=== PATIENT | male | born 1975 | race Caucasian/White ===

== ENCOUNTER 2019-08-28 05:37 | Emergency (ER) | payer MEDICAID ==
[~2019-08-28] VITALS: Ht 172.7 cm; Wt 90.9 kg
[~2019-08-28 05:37] MED LIST: METF-445 PO
[2019-08-28 06:06] LABS: GLUCOSE,POINT OF CARE 233 MG/DL (70-110)
[2019-08-28 07:12] VITALS: BP 157/105
[2019-08-28] MEDS ORDERED: HYDROCHLOROTHIAZIDE 25 MG TABLET PO ONE (07:30)
== END 2019-08-28 08:14 | disposition home or self-care (01) ==
LOC: EMS 05:37
DX: S60.321A Blister (nonthermal) of right thumb, initial encounter (principal); S60.011A Contusion of right thumb without damage to nail, initial encounter; I10 Essential (primary) hypertension; E11.9 Type 2 diabetes mellitus without complications; Z98.890 Other specified postprocedural states; Z79.84 Long term (current) use of oral hypoglycemic drugs; X58.XXXA Exposure to other specified factors, initial encounter; Y93.89 Activity, other specified; Y92.89 Other specified places as the place of occurrence of the external cause; Y99.8 Other external cause status
CPT/HCPCS: 11740

== ENCOUNTER 2020-11-02 21:18 | Emergency (ER) | payer MEDICAID ==
[~2020-11-02] VITALS: Ht 182.9 cm; Wt 81.8 kg
[~2020-11-02 21:18] MED LIST changes: +BACTDSB PO; +CEPH-582 PO; +LOSA25TA21 PO
[2020-11-02 21:42] LABS: GLUCOSE,POINT OF CARE 153 MG/DL (70-110)
[2020-11-02 22:15] VITALS: BP 162/88
[2020-11-02 22:39] LABS: BASOPHILS % (AUTO) 0.6 % (0.0-2.0); EOSINOPHILS % (AUTO) 7.9 % (1.0-6.0); HEMATOCRIT 28.1 % (41-53); HEMOGLOBIN 9.7 g/dL (13.5-17.5); LYMPHOCYTES # (AUTO) 1.5 K/uL (1.0-4.8); MEAN CORPUSCULAR HEMOGLOBIN 31.4 pg (26.0-34.0); MEAN CORPUSCULAR HGB CONC 34.6 G/dL (31.0-37.0); MEAN CORPUSCULAR VOLUME 91 fL (80-100); MONOCYTES # (AUTO) 0.7 K/uL (0.1-1.0); MONOCYTES % (AUTO) 10.3 % (2.0-9.0); NEUTROPHILS # (AUTO) 3.6 K/uL (1.8-7.7); NEUTROPHILS % (AUTO) 57.2 % (40.0-70.0); PLATELET COUNT (AUTO) 170 K/uL (150-450); RED BLOOD CELL COUNT(AUTO) 3.09 MIL/uL (4.50-5.90); RED CELL DISTRIBUTION WIDTH 11.9 % (11.5-14.5)
[2020-11-02 22:47] LABS: CALCIUM, TOTAL 8.9 mg/dL (8.8-10.5); CREATININE 1.38 mg/dL (0.60-1.30); POTASSIUM 4.3 mmol/L (3.5-5.1)
[2020-11-02 22:53] LABS: ALBUMIN 2.7 g/dL (3.4-5.0); BILIRUBIN,TOTAL 0.3 mg/dL (0.1-1.0); C-REACTIVE PROTEIN QUANT 5.72 mg/dL (0.00-0.30); TOTAL PROTEIN, SERUM 7.6 g/dL (6.4-8.2)
[2020-11-02 23:54] LABS: ERYTHROCYTE SEDIMENTATION RATE 110 MM/HR (0-15)
== END 2020-11-03 01:14 | disposition home or self-care (01) ==
LOC: EMS 21:18
DX: E11.621 Type 2 diabetes mellitus with foot ulcer (principal); L97.419 Non-pressure chronic ulcer of right heel and midfoot with unspecified severity; I10 Essential (primary) hypertension; Z79.84 Long term (current) use of oral hypoglycemic drugs
CPT/HCPCS: 84145; 85651; 86140

== ENCOUNTER → 2021-03-12 | Outpatient (CLI) | payer OTHER ==
[~2021-03-12] MED LIST changes: -BACTDSB PO; -CEPH-582 PO
[2021-03-12 12:18] LABS: EOSINOPHILS % (AUTO) 2.1 % (1.0-6.0); HEMATOCRIT 34.5 % (41-53); HEMOGLOBIN 11.5 g/dL (13.5-17.5); LYMPHOCYTES # (AUTO) 1.4 K/uL (1.0-4.8); LYMPHOCYTES % (AUTO) 19.2 % (22.0-44.0); MEAN CORPUSCULAR HEMOGLOBIN 30.9 pg (26.0-34.0); MEAN CORPUSCULAR HGB CONC 33.2 G/dL (31.0-37.0); MEAN CORPUSCULAR VOLUME 93 fL (80-100); MONOCYTES # (AUTO) 0.4 K/uL (0.1-1.0); MONOCYTES % (AUTO) 5.4 % (2.0-9.0); NEUTROPHILS # (AUTO) 5.3 K/uL (1.8-7.7); NEUTROPHILS % (AUTO) 72.3 % (40.0-70.0); PLATELET COUNT (AUTO) 191 K/uL (150-450); RED BLOOD CELL COUNT(AUTO) 3.71 MIL/uL (4.50-5.90); RED CELL DISTRIBUTION WIDTH 13.1 % (11.5-14.5)
[2021-03-12 14:46] LABS: ERYTHROCYTE SEDIMENTATION RATE 68 MM/HR (0-15)
== END | disposition home or self-care (01) ==
LOC: MSR 09:18
PROVIDERS: ATTEND Podiatrist Foot & Ankle Surgery
DX: M77.31 Calcaneal spur, right foot (principal); M86.8X7 Other osteomyelitis, ankle and foot
CPT/HCPCS: 85025; 85651

== ENCOUNTER → 2021-09-18 | Outpatient (CLI) | payer OTHER ==
[~2021-09-18] MED LIST changes: +ASPI-1450 PO; +ATOR40TA28 PO; +CEFA2IV IV
[2021-09-18 12:17] LABS: BASOPHILS % (AUTO) 0.5 % (0.0-2.0); EOSINOPHILS % (AUTO) 2.1 % (1.0-6.0); HEMATOCRIT 33.5 % (41-53); HEMOGLOBIN 11.5 g/dL (13.5-17.5); LYMPHOCYTES # (AUTO) 1.3 K/uL (1.0-4.8); LYMPHOCYTES % (AUTO) 18.1 % (22.0-44.0); MEAN CORPUSCULAR HEMOGLOBIN 31.6 pg (26.0-34.0); MEAN CORPUSCULAR HGB CONC 34.5 G/dL (31.0-37.0); MEAN CORPUSCULAR VOLUME 92 fL (80-100); MONOCYTES # (AUTO) 0.5 K/uL (0.1-1.0); MONOCYTES % (AUTO) 6.1 % (2.0-9.0); NEUTROPHILS # (AUTO) 5.4 K/uL (1.8-7.7); NEUTROPHILS % (AUTO) 73.2 % (40.0-70.0); PLATELET COUNT (AUTO) 162 K/uL (150-450); RED BLOOD CELL COUNT(AUTO) 3.65 MIL/uL (4.50-5.90); RED CELL DISTRIBUTION WIDTH 12.8 % (11.5-14.5)
[2021-09-18 13:38] LABS: ERYTHROCYTE SEDIMENTATION RATE 35 MM/HR (0-15)
== END | disposition home or self-care (01) ==
LOC: MSR 11:05
PROVIDERS: ATTEND Podiatrist Foot & Ankle Surgery
DX: M86.8X0 Other osteomyelitis, multiple sites (principal); M85.9 Disorder of bone density and structure, unspecified; E11.65 Type 2 diabetes mellitus with hyperglycemia; L97.511 Non-pressure chronic ulcer of other part of right foot limited to breakdown of skin
CPT/HCPCS: 83036; 85025; 85651

== ENCOUNTER 2021-10-09 19:12 | Emergency (ER) | payer MEDICAID, OTHER ==
[~2021-10-09] VITALS: Ht 177.8 cm; Wt 86.4 kg
[2021-10-09] MEDS ORDERED: METF-444 PO (19:37)
[2021-10-09] MEDS ORDERED: LISI20TA24 PO (19:37)
[2021-10-09] MEDS ORDERED: SITA50 PO (19:37)
[2021-10-09] MEDS ORDERED: CYCLOBENZAPRINE HCL 10 MG TABLET PO ONE (20:30)
[2021-10-09] MEDS ORDERED: KETOROLAC TROMETHAMINE 60 MG/2 ML VIAL IM ONE (20:30)
[2021-10-09] MEDS ORDERED: LIDOCAINE 5% TRANSDERMAL PATCH TD ONE (20:30)
[2021-10-09 20:45] LABS: APPEARANCE,URINE CLEAR (CLEAR); BILIRUBIN,URINE PRELIM. POSITIVE (NEGATIVE); GLUCOSE, URINE (UA) NEGATIVE (NEGATIVE); KETONES,URINE 15 mg/dL (NEGATIVE); LEUKOCYTE ESTERASE ,URINE NEGATIVE (NEGATIVE); NITRATE,URINE NEGATIVE (NEGATIVE); PROTEIN,URINE SEE CONFIRM (NEGATIVE)
[2021-10-09 20:48] LABS: BACTERIA,URINE None Seen /HPF (None Seen); OCCULT BLOOD,URINE TRACE (NEGATIVE); RBC,URINE 0-2 /HPF (0-2); SULFOSALICYLIC ACID,URINE 3+ (Negative); WBC,URINE None Seen /HPF (0-5)
[2021-10-09 21:50] VITALS: BP 127/73
== END 2021-10-09 22:31 | disposition home or self-care (01) ==
LOC: EMS 19:15
DX: M54.50 Low back pain, unspecified (principal); I10 Essential (primary) hypertension; E11.9 Type 2 diabetes mellitus without complications; Z79.82 Long term (current) use of aspirin; Z79.899 Other long term (current) drug therapy
CPT/HCPCS: 81001; 96372; 99283; J1885; 81002

== ENCOUNTER 2021-10-12 06:33 | Emergency (ER) | payer MEDICAID ==
[~2021-10-12] VITALS: Ht 177.8 cm; Wt 86.4 kg
[~2021-10-12 06:33] MED LIST changes: -CEFA2IV IV; +LISI20TA24 PO; +METF-444 PO; -METF-445 PO; +SITA50 PO
[2021-10-12] MEDS ORDERED: MORPHINE SULFATE 4 MG/ML SYRINGE IVP ONE (07:00)
[2021-10-12 07:10] LABS: BASOPHILS % (AUTO) 0.2 % (0.0-2.0); HEMATOCRIT 31.6 % (41-53); HEMOGLOBIN 11.3 g/dL (13.5-17.5); LYMPHOCYTES # (AUTO) 0.6 K/uL (1.0-4.8); LYMPHOCYTES % (AUTO) 5.6 % (22.0-44.0); MEAN CORPUSCULAR HEMOGLOBIN 31.4 pg (26.0-34.0); MEAN CORPUSCULAR HGB CONC 35.7 G/dL (31.0-37.0); MEAN CORPUSCULAR VOLUME 88 fL (80-100); MONOCYTES % (AUTO) 8.6 % (2.0-9.0); NEUTROPHILS # (AUTO) 9.3 K/uL (1.8-7.7); NEUTROPHILS % (AUTO) 84.6 % (40.0-70.0); PLATELET COUNT (AUTO) 195 K/uL (150-450); RED CELL DISTRIBUTION WIDTH 12.6 % (11.5-14.5)
[2021-10-12] MEDS ORDERED: IOHEXOL 350 MG/ML 150 ML VIAL ONE (07:12)
[2021-10-12] MEDS ORDERED: SODIUM CHLORIDE 0.9% 100 ML ONE (07:13)
[2021-10-12 07:19] LABS: CALCIUM, TOTAL 9.6 mg/dL (8.8-10.5); CREATININE 1.84 mg/dL (0.60-1.30); POTASSIUM 3.7 mmol/L (3.5-5.1)
[2021-10-12 07:25] LABS: ALBUMIN 3.3 g/dL (3.4-5.0); BILIRUBIN,TOTAL 0.9 mg/dL (0.1-1.0); TOTAL PROTEIN, SERUM 8.4 g/dL (6.4-8.2)
[2021-10-12] MEDS ORDERED: SODIUM CHLORIDE 0.9% 1,000 ML IV ONE (08:00)
[2021-10-12 08:07] LABS: APPEARANCE,URINE CLEAR (CLEAR); BILIRUBIN,URINE NEGATIVE (NEGATIVE); GLUCOSE, URINE (UA) NEGATIVE (NEGATIVE); KETONES,URINE NEGATIVE (NEGATIVE); LEUKOCYTE ESTERASE ,URINE NEGATIVE (NEGATIVE); NITRATE,URINE NEGATIVE (NEGATIVE); OCCULT BLOOD,URINE SMALL (NEGATIVE); PH,URINE 5.5 (5.0-8.0); PROTEIN,URINE SEE CONFIRM (NEGATIVE)
[2021-10-12 08:18] LABS: BACTERIA,URINE None Seen /HPF (None Seen); RBC,URINE 0-2 /HPF (0-2); SULFOSALICYLIC ACID,URINE 2+ (Negative); WBC,URINE None Seen /HPF (0-5)
[2021-10-12 08:42] VITALS: BP 162/98
[2021-10-12] MEDS ORDERED: LIDOCAINE 5% TRANSDERMAL PATCH TD ONE (09:15)
[2021-10-12] MEDS ORDERED: ACETAMINOPHEN 325 MG TABLET PO ONE (09:15)
== END 2021-10-12 10:00 | disposition home or self-care (01) ==
LOC: EMS 06:35
DX: M54.50 Low back pain, unspecified (principal); E11.9 Type 2 diabetes mellitus without complications; I10 Essential (primary) hypertension; Z79.899 Other long term (current) drug therapy
CPT/HCPCS: 36415; 71260; 72128; 72131; 74177; 80053; 81001; 82550; 85025; 96361; 96374; 99285; J2270; J7050; Q9967; 72193; 74160; 81002

== ENCOUNTER 2021-11-22 13:53 | Emergency (ER) | payer MEDICAID ==
[~2021-11-22] VITALS: Ht 170.2 cm; Wt 88.0 kg
[~2021-11-22 13:53] MED LIST changes: +LOSA-370 PO; -LOSA25TA21 PO
[2021-11-22 14:32] VITALS: BP 140/88
[2021-11-22] MEDS ORDERED: ACETAMINOPHEN 500 MG TABLET PO ONE (14:45)
[2021-11-22] MEDS ORDERED: BACLOFEN 10 MG TABLET PO ONE (14:45)
[2021-11-22] MEDS ORDERED: LIDOCAINE 5% TRANSDERMAL PATCH TD ONE (14:45)
== END 2021-11-22 15:42 | disposition home or self-care (01) ==
LOC: EMS 13:53
DX: M54.6 Pain in thoracic spine (principal); E11.9 Type 2 diabetes mellitus without complications; E78.00 Pure hypercholesterolemia, unspecified; I10 Essential (primary) hypertension; Z79.82 Long term (current) use of aspirin; Z79.84 Long term (current) use of oral hypoglycemic drugs
CPT/HCPCS: 99284; Z7502; Z7610

== ENCOUNTER 2021-12-01 06:48 | Inpatient (IN) | payer MEDICAID ==
[~2021-12-01] VITALS: Ht 165.1 cm; Wt 75.5 kg
[~2021-12-01 06:48] MED LIST changes: -LOSA-370 PO; +LOSA-381 PO
[2021-12-01 07:36] LABS: BASOPHILS % (AUTO) 0.4 % (0.0-2.0); EOSINOPHILS % (AUTO) 0.2 % (1.0-6.0); HEMATOCRIT 24.1 % (41-53); HEMOGLOBIN 8.3 g/dL (13.5-17.5); LYMPHOCYTES # (AUTO) 0.6 K/uL (1.0-4.8); LYMPHOCYTES % (AUTO) 4.5 % (22.0-44.0); MEAN CORPUSCULAR HEMOGLOBIN 30.5 pg (26.0-34.0); MEAN CORPUSCULAR HGB CONC 34.4 G/dL (31.0-37.0); MEAN CORPUSCULAR VOLUME 89 fL (80-100); MONOCYTES # (AUTO) 0.8 K/uL (0.1-1.0); MONOCYTES % (AUTO) 5.8 % (2.0-9.0); NEUTROPHILS # (AUTO) 12.7 K/uL (1.8-7.7); PLATELET COUNT (AUTO) 318 K/uL (150-450); RED BLOOD CELL COUNT(AUTO) 2.72 MIL/uL (4.50-5.90); RED CELL DISTRIBUTION WIDTH 13.6 % (11.5-14.5)
[2021-12-01 07:41] LABS: NEUTROPHILS % (AUTO) 89.1 % (40.0-70.0)
[2021-12-01 07:53] LABS: CALCIUM, TOTAL 9.1 mg/dL (8.8-10.5); CREATININE 1.42 mg/dL (0.60-1.30); POTASSIUM 4.6 mmol/L (3.5-5.1)
[2021-12-01 08:02] LABS: ALBUMIN 2.1 g/dL (3.4-5.0); BILIRUBIN,TOTAL 0.7 mg/dL (0.1-1.0); TOTAL PROTEIN, SERUM 7.4 g/dL (6.4-8.2); URIC ACID 6.5 mg/dL (2.6-7.2)
[2021-12-01 08:18] LABS: C-REACTIVE PROTEIN QUANT 20.48 mg/dL (0.00-0.30)
[2021-12-01 08:52] LABS: ERYTHROCYTE SEDIMENTATION RATE 150 MM/HR (0-15)
[2021-12-01] MEDS ORDERED: VANCOMYCIN HCL 1 GM/D5% WATER 200 ML IV ONE (12:00)
[2021-12-01 14:28] LABS: COVID AG,FIA SOURCE NASOPHARYNGEAL
[2021-12-01] MEDS ORDERED: ONDANSETRON HCL 4 MG/2 ML VIAL IVP PRN (14:45)
[2021-12-01] MEDS ORDERED: DEXTROSE 50%-WATER 25 GM/50 ML SYRINGE IVP PRN (14:45)
[2021-12-01] MEDS ORDERED: SODIUM CHLORIDE 0.9% 1,000 ML IV ONE (14:45)
[2021-12-01] MEDS ORDERED: ZOLPIDEM TARTRATE 5 MG TABLET PO PRN (14:45)
[2021-12-01] MEDS: LOSARTAN POTASSIUM 25 MG TABLET PO SCH (14:56)
[2021-12-01] MEDS: OxyCODONE HCL/ACETAMINOPHEN 5-325 MG TABLET PO PRN (16:21)
[2021-12-01] MEDS: INSULIN LISPRO 100 UNITS/ML SQ PRN ×2 (18:05→21:08)
[2021-12-01 18:36] VITALS: BP 140/94
[2021-12-01 19:56] LABS: GLUCOMETER DEV NAME(LOC) 6N.2; GLUCOSE,POINT OF CARE 154 MG/DL (70-110)
[2021-12-01 20:04] VITALS: BP 142/96
[2021-12-01] MEDS: DOCUSATE SODIUM 100 MG CAPSULE PO SCH (20:50)
[2021-12-01] MEDS: ACETAMINOPHEN 325 MG TABLET PO PRN (21:17)
[2021-12-01] MEDS: VANCOMYCIN HCL 1 GM/D5% WATER 200 ML IV SCH (21:53)
[2021-12-01] MEDS ORDERED: INFLUENZA VIRUS VACCINE QVS 2021-22 (6MO+)/PF 60 MCG/0.5 ML SYRINGE IM. ONE (23:45)
[2021-12-02 03:30] VITALS: BP 116/74
[2021-12-02 05:12] LABS: GLUCOMETER DEV NAME(LOC) 6N.2; GLUCOSE,POINT OF CARE 185 MG/DL (70-110)
[2021-12-02] MEDS: INSULIN LISPRO 100 UNITS/ML SQ PRN ×3 (05:53→20:20)
[2021-12-02 06:07] LABS: GLUCOMETER DEV NAME(LOC) 6N.2; GLUCOSE,POINT OF CARE 200 MG/DL (70-110)
[2021-12-02 06:31] LABS: BASOPHILS % (AUTO) 0.4 % (0.0-2.0); EOSINOPHILS % (AUTO) 1.2 % (1.0-6.0); HEMATOCRIT 26.7 % (41-53); HEMOGLOBIN 9.1 g/dL (13.5-17.5); LYMPHOCYTES # (AUTO) 1.1 K/uL (1.0-4.8); LYMPHOCYTES % (AUTO) 10.6 % (22.0-44.0); MEAN CORPUSCULAR HEMOGLOBIN 29.9 pg (26.0-34.0); MEAN CORPUSCULAR HGB CONC 33.9 G/dL (31.0-37.0); MEAN CORPUSCULAR VOLUME 88 fL (80-100); MONOCYTES # (AUTO) 0.6 K/uL (0.1-1.0); MONOCYTES % (AUTO) 5.9 % (2.0-9.0); NEUTROPHILS # (AUTO) 8.3 K/uL (1.8-7.7); NEUTROPHILS % (AUTO) 81.9 % (40.0-70.0); PLATELET COUNT (AUTO) 318 K/uL (150-450); RED BLOOD CELL COUNT(AUTO) 3.03 MIL/uL (4.50-5.90); RED CELL DISTRIBUTION WIDTH 13.8 % (11.5-14.5)
[2021-12-02 06:42] LABS: ANION GAP 9 mmol/L (8-16); CALCIUM, TOTAL 9.2 mg/dL (8.8-10.5); CARBON DIOXIDE 27 mmol/L (22-29); CHLORIDE 99 mmol/L (98-107); CREATININE 1.05 mg/dL (0.60-1.30); GLOMERULAR FILTR. RATE CALC > 60 mL/min (>60); GLUCOSE,RANDOM 202 mg/dL (70-110); POTASSIUM 4.6 mmol/L (3.5-5.1); SODIUM SERUM 135 mmol/L (136-145); UREA NITROGEN, BLOOD 32 mg/dL (7-18)
[2021-12-02 08:03] VITALS: BP 138/90
[2021-12-02] MEDS: OxyCODONE HCL/ACETAMINOPHEN 5-325 MG TABLET PO PRN ×3 (08:54→19:52)
[2021-12-02] MEDS: VANCOMYCIN HCL 1 GM/D5% WATER 200 ML IV SCH ×2 (10:14→19:53)
[2021-12-02] MEDS: DOCUSATE SODIUM 100 MG CAPSULE PO SCH ×2 (10:14→19:52)
[2021-12-02] MEDS: LOSARTAN POTASSIUM 25 MG TABLET PO SCH (10:15)
[2021-12-02] MEDS: FAMOTIDINE 20 MG TABLET PO SCH (10:15)
[2021-12-02 12:44] VITALS: BP 176/81
[2021-12-02 13:55] VITALS: BP 143/89
[2021-12-02 15:51] VITALS: BP 156/87
[2021-12-02 19:51] LABS: GLUCOMETER DEV NAME(LOC) 6N.2; GLUCOSE,POINT OF CARE 151 MG/DL (70-110)
[2021-12-02 19:51] LABS: GLUCOMETER DEV NAME(LOC) 6N.2; GLUCOSE,POINT OF CARE 166 MG/DL (70-110)
[2021-12-02 20:32] VITALS: BP 113/75
[2021-12-03 04:47] VITALS: BP 138/88
[2021-12-03] MEDS: OxyCODONE HCL/ACETAMINOPHEN 5-325 MG TABLET PO PRN ×3 (06:29→21:57)
[2021-12-03] MEDS: INSULIN LISPRO 100 UNITS/ML SQ PRN ×4 (06:32→21:58)
[2021-12-03] MEDS ORDERED: BUPIVACAINE 0.25%/EPI 1:200,000/PF 10 ML VIAL ONE ×2 (06:42→06:43)
[2021-12-03] MEDS ORDERED: BUPIVACAINE HCL/PF 0.25% 30 ML VIAL ONE (06:43)
[2021-12-03] MEDS ORDERED: LIDOCAINE/PF 1% 30 ML VIAL ONE (07:25)
[2021-12-03] MEDS ORDERED: VANCOMYCIN HCL 1 GM/VIAL ONE (07:32)
[2021-12-03] MEDS ORDERED: SODIUM CHLORIDE 0.9% 250 ML IV ONE (07:33)
[2021-12-03] MEDS ORDERED: SUGAMMADEX SODIUM 200 MG/2 ML VIAL IVP ONE (07:42)
[2021-12-03] MEDS: OXYGEN THERAPY IH SCH ×2 (08:00→20:00)
[2021-12-03] MEDS ORDERED: MEPERIDINE-PF 25 MG/ML VIAL IVP PRN (08:00)
[2021-12-03] MEDS ORDERED: FentaNYL CITRATE PF 100 MCG/2 ML VIAL IVP PRN (08:00)
[2021-12-03] MEDS ORDERED: HYDROmorphone 2 MG/ML VIAL IVP PRN (08:00)
[2021-12-03 08:06] LABS: GLUCOMETER DEV NAME(LOC) 6N.2; GLUCOSE,POINT OF CARE 181 MG/DL (70-110)
[2021-12-03 08:06] LABS: GLUCOMETER DEV NAME(LOC) 6N.2; GLUCOSE,POINT OF CARE 173 MG/DL (70-110)
[2021-12-03 09:05] VITALS: BP 149/91
[2021-12-03] MEDS: DOCUSATE SODIUM 100 MG CAPSULE PO SCH ×2 (09:16→21:56)
[2021-12-03] MEDS: LOSARTAN POTASSIUM 25 MG TABLET PO SCH (09:16)
[2021-12-03] MEDS: FAMOTIDINE 20 MG TABLET PO SCH (09:16)
[2021-12-03] MEDS: VANCOMYCIN HCL 1 GM/D5% WATER 200 ML IV SCH ×2 (09:50→21:56)
[2021-12-03 10:07] LABS: ANION GAP 5 mmol/L (8-16); CALCIUM, TOTAL 9.1 mg/dL (8.8-10.5); CARBON DIOXIDE 28 mmol/L (22-29); CHLORIDE 101 mmol/L (98-107); CREATININE 1.07 mg/dL (0.60-1.30); GLOMERULAR FILTR. RATE CALC > 60 mL/min (>60); GLUCOSE,RANDOM 187 mg/dL (70-110); POTASSIUM 5.1 mmol/L (3.5-5.1); SODIUM SERUM 134 mmol/L (136-145); UREA NITROGEN, BLOOD 23 mg/dL (7-18); VANCOMYCIN,RANDOM 29.5 mcg/mL (25.0-50.0)
[2021-12-03 12:21] LABS: GLUCOMETER DEV NAME(LOC) 6N.1; GLUCOSE,POINT OF CARE 229 MG/DL (70-110)
[2021-12-03 15:36] VITALS: BP 118/74
[2021-12-03 19:26] VITALS: BP 118/65
[2021-12-03 20:36] LABS: GLUCOMETER DEV NAME(LOC) 6N.1; GLUCOSE,POINT OF CARE 202 MG/DL (70-110)
[2021-12-03 23:47] LABS: GLUCOMETER DEV NAME(LOC) 6N.1; GLUCOSE,POINT OF CARE 175 MG/DL (70-110)
[2021-12-04 03:47] VITALS: BP 154/96
[2021-12-04] MEDS ORDERED: MIDAZOLAM HCL 2 MG/2 ML VIAL IVP ONE (06:38)
[2021-12-04] MEDS ORDERED: DEXAMETHASONE SOD PHOS 4 MG/ML VIAL IVP ONE (06:38)
[2021-12-04] MEDS ORDERED: LIDOCAINE/PF 2% 5 ML VIAL IM ONE (06:38)
[2021-12-04] MEDS ORDERED: ONDANSETRON HCL 4 MG/2 ML VIAL IVP ONE (06:38)
[2021-12-04] MEDS ORDERED: ROCURONIUM BROMIDE 10 MG/ML 5 ML VIAL IVP ONE (06:38)
[2021-12-04] MEDS ORDERED: FentaNYL CITRATE PF 100 MCG/2 ML VIAL IVP ONE (06:38)
[2021-12-04] MEDS ORDERED: PROPOFOL 1% 20 ML VIAL IVP ONE (06:38)
[2021-12-04] MEDS: INSULIN LISPRO 100 UNITS/ML SQ PRN ×4 (06:54→20:49)
[2021-12-04 07:13] LABS: ANION GAP 5 mmol/L (8-16); CARBON DIOXIDE 29 mmol/L (22-29); CHLORIDE 101 mmol/L (98-107); CREATININE 1.05 mg/dL (0.60-1.30); GLOMERULAR FILTR. RATE CALC > 60 mL/min (>60); GLUCOSE,RANDOM 178 mg/dL (70-110); POTASSIUM 4.5 mmol/L (3.5-5.1); SODIUM SERUM 135 mmol/L (136-145); UREA NITROGEN, BLOOD 25 mg/dL (7-18)
[2021-12-04 07:31] LABS: GLUCOMETER DEV NAME(LOC) 6N.2; GLUCOSE,POINT OF CARE 163 MG/DL (70-110)
[2021-12-04] MEDS: OXYGEN THERAPY IH SCH ×2 (08:00→20:00)
[2021-12-04 08:20] VITALS: BP 118/76
[2021-12-04 08:29] VITALS: BP 133/91
[2021-12-04] MEDS: DOCUSATE SODIUM 100 MG CAPSULE PO SCH ×2 (09:45→20:46)
[2021-12-04] MEDS: FAMOTIDINE 20 MG TABLET PO SCH (09:46)
[2021-12-04] MEDS: LOSARTAN POTASSIUM 25 MG TABLET PO SCH (10:09)
[2021-12-04] MEDS: VANCOMYCIN HCL 1 GM/D5% WATER 200 ML IV SCH ×2 (12:23→20:46)
[2021-12-04 13:36] LABS: GLUCOMETER DEV NAME(LOC) 6N.2; GLUCOSE,POINT OF CARE 164 MG/DL (70-110)
[2021-12-04] MEDS: OxyCODONE HCL/ACETAMINOPHEN 5-325 MG TABLET PO PRN ×2 (14:00→20:46)
[2021-12-04 15:51] VITALS: BP 112/74
[2021-12-04 19:41] LABS: GLUCOMETER DEV NAME(LOC) 6N.2; GLUCOSE,POINT OF CARE 214 MG/DL (70-110)
[2021-12-04 19:55] VITALS: BP 136/82
[2021-12-04 20:46] LABS: GLUCOMETER DEV NAME(LOC) 6N.1; GLUCOSE,POINT OF CARE 203 MG/DL (70-110)
[2021-12-05] MEDS: OxyCODONE HCL/ACETAMINOPHEN 5-325 MG TABLET PO PRN ×3 (02:24→20:32)
[2021-12-05 04:40] VITALS: BP 155/97
[2021-12-05] MEDS: INSULIN LISPRO 100 UNITS/ML SQ PRN ×2 (05:46→20:43)
[2021-12-05 06:06] LABS: GLUCOMETER DEV NAME(LOC) 6N.2; GLUCOSE,POINT OF CARE 158 MG/DL (70-110)
[2021-12-05 07:02] LABS: ANION GAP 1 mmol/L (8-16); CARBON DIOXIDE 30 mmol/L (22-29); CHLORIDE 101 mmol/L (98-107); CREATININE 0.88 mg/dL (0.60-1.30); GLOMERULAR FILTR. RATE CALC > 60 mL/min (>60); GLUCOSE,RANDOM 172 mg/dL (70-110); POTASSIUM 4.6 mmol/L (3.5-5.1); SODIUM SERUM 132 mmol/L (136-145); UREA NITROGEN, BLOOD 24 mg/dL (7-18)
[2021-12-05] MEDS: OXYGEN THERAPY IH SCH ×2 (08:00→20:00)
[2021-12-05 08:51] VITALS: BP 136/84
[2021-12-05] MEDS: VANCOMYCIN HCL 1 GM/D5% WATER 200 ML IV SCH ×2 (10:15→20:33)
[2021-12-05] MEDS: FAMOTIDINE 20 MG TABLET PO SCH (10:55)
[2021-12-05] MEDS: DOCUSATE SODIUM 100 MG CAPSULE PO SCH ×2 (10:55→20:32)
[2021-12-05] MEDS: LOSARTAN POTASSIUM 25 MG TABLET PO SCH (11:07)
[2021-12-05 12:46] VITALS: BP 155/95
[2021-12-05 17:07] VITALS: BP 140/62
[2021-12-05 19:46] LABS: GLUCOMETER DEV NAME(LOC) 6N.1; GLUCOSE,POINT OF CARE 119 MG/DL (70-110)
[2021-12-05 19:49] VITALS: BP 128/86
[2021-12-06] MEDS: OxyCODONE HCL/ACETAMINOPHEN 5-325 MG TABLET PO PRN ×3 (03:13→19:39)
[2021-12-06 04:34] VITALS: BP 150/86
[2021-12-06] MEDS: INSULIN LISPRO 100 UNITS/ML SQ PRN (05:50)
[2021-12-06 06:56] LABS: GLUCOMETER DEV NAME(LOC) 6N.2; GLUCOSE,POINT OF CARE 169 MG/DL (70-110)
[2021-12-06 06:56] LABS: GLUCOMETER DEV NAME(LOC) 6N.1; GLUCOSE,POINT OF CARE 179 MG/DL (70-110)
[2021-12-06 07:05] LABS: ANION GAP 4 mmol/L (8-16); CALCIUM, TOTAL 9.2 mg/dL (8.8-10.5); CARBON DIOXIDE 30 mmol/L (22-29); CHLORIDE 99 mmol/L (98-107); CREATININE 0.91 mg/dL (0.60-1.30); GLOMERULAR FILTR. RATE CALC > 60 mL/min (>60); GLUCOSE,RANDOM 172 mg/dL (70-110); POTASSIUM 4.5 mmol/L (3.5-5.1); SODIUM SERUM 133 mmol/L (136-145); UREA NITROGEN, BLOOD 22 mg/dL (7-18)
[2021-12-06 07:42] VITALS: BP 148/84
[2021-12-06] MEDS: OXYGEN THERAPY IH SCH ×2 (08:00→20:00)
[2021-12-06] MEDS: VANCOMYCIN HCL 1 GM/D5% WATER 200 ML IV SCH (09:29)
[2021-12-06] MEDS: LOSARTAN POTASSIUM 25 MG TABLET PO SCH (10:16)
[2021-12-06] MEDS: FAMOTIDINE 20 MG TABLET PO SCH (10:16)
[2021-12-06] MEDS: DOCUSATE SODIUM 100 MG CAPSULE PO SCH ×2 (10:16→20:26)
[2021-12-06 13:42] LABS: BASOPHILS % (AUTO) 0.4 % (0.0-2.0); EOSINOPHILS % (AUTO) 1.3 % (1.0-6.0); HEMATOCRIT 25.2 % (41-53); HEMOGLOBIN 8.5 g/dL (13.5-17.5); LYMPHOCYTES % (AUTO) 10.6 % (22.0-44.0); MEAN CORPUSCULAR HEMOGLOBIN 29.9 pg (26.0-34.0); MEAN CORPUSCULAR HGB CONC 33.8 G/dL (31.0-37.0); MEAN CORPUSCULAR VOLUME 89 fL (80-100); MONOCYTES # (AUTO) 0.6 K/uL (0.1-1.0); NEUTROPHILS # (AUTO) 7.3 K/uL (1.8-7.7); NEUTROPHILS % (AUTO) 80.7 % (40.0-70.0); PLATELET COUNT (AUTO) 297 K/uL (150-450); RED BLOOD CELL COUNT(AUTO) 2.85 MIL/uL (4.50-5.90); RED CELL DISTRIBUTION WIDTH 13.5 % (11.5-14.5)
[2021-12-06 14:39] LABS: ERYTHROCYTE SEDIMENTATION RATE 130 MM/HR (0-15)
[2021-12-06 15:29] VITALS: BP 140/78
[2021-12-06] MEDS: NAFCILLIN SODIUM 2 GM in DEXTROSE 5%-WATER 100 ML IV SCH ×2 (17:25→20:26)
[2021-12-06 19:01] LABS: GLUCOMETER DEV NAME(LOC) 6N.2; GLUCOSE,POINT OF CARE 131 MG/DL (70-110)
[2021-12-06 19:25] VITALS: BP 139/87
[2021-12-06 20:31] LABS: GLUCOMETER DEV NAME(LOC) 6N.1; GLUCOSE,POINT OF CARE 147 MG/DL (70-110)
[2021-12-07] MEDS: NAFCILLIN SODIUM 2 GM in DEXTROSE 5%-WATER 100 ML IV SCH ×7 (00:48→23:40)
[2021-12-07 05:05] VITALS: BP 137/78
[2021-12-07 05:46] LABS: GLUCOMETER DEV NAME(LOC) 6N.1; GLUCOSE,POINT OF CARE 164 MG/DL (70-110)
[2021-12-07] MEDS: INSULIN LISPRO 100 UNITS/ML SQ PRN ×2 (05:54→19:57)
[2021-12-07] MEDS: OXYGEN THERAPY IH SCH ×2 (08:00→19:58)
[2021-12-07 08:28] LABS: ALANINE AMINOTRANSFERASE 21 U/L (12-78); ALBUMIN 1.8 g/dL (3.4-5.0); ALKALINE PHOSPHATASE 68 U/L (46-116); ANION GAP 3 mmol/L (8-16); ASPARTATE AMINOTRANSFERASE 14 U/L (15-37); BILIRUBIN,TOTAL 0.4 mg/dL (0.1-1.0); CALCIUM, TOTAL 8.9 mg/dL (8.8-10.5); CARBON DIOXIDE 30 mmol/L (22-29); CHLORIDE 99 mmol/L (98-107); CREATININE 1.05 mg/dL (0.60-1.30); GLOMERULAR FILTR. RATE CALC > 60 mL/min (>60); GLUCOSE,RANDOM 155 mg/dL (70-110); POTASSIUM 4.4 mmol/L (3.5-5.1); SODIUM SERUM 132 mmol/L (136-145); TOTAL PROTEIN, SERUM 6.9 g/dL (6.4-8.2); UREA NITROGEN, BLOOD 23 mg/dL (7-18)
[2021-12-07 08:33] VITALS: BP 144/94
[2021-12-07] MEDS: DOCUSATE SODIUM 100 MG CAPSULE PO SCH ×2 (09:01→19:52)
[2021-12-07] MEDS: LOSARTAN POTASSIUM 25 MG TABLET PO SCH (09:02)
[2021-12-07] MEDS: CHOLECALCIFEROL (VIT D3) 5,000 [125 MCG] UNITS CAPSULE PO SCH (09:02)
[2021-12-07] MEDS: FAMOTIDINE 20 MG TABLET PO SCH (09:02)
[2021-12-07] MEDS: OxyCODONE HCL/ACETAMINOPHEN 5-325 MG TABLET PO PRN ×4 (09:05→23:41)
[2021-12-07] MEDS ORDERED: GADOTERATE MEGLUMINE 10 MMOL/20 ML VIAL IVP ONE (11:34)
[2021-12-07 11:41] VITALS: BP 132/75
[2021-12-07 13:01] LABS: GLUCOMETER DEV NAME(LOC) 6N.2; GLUCOSE,POINT OF CARE 160 MG/DL (70-110)
[2021-12-07 17:47] LABS: GLUCOMETER DEV NAME(LOC) 6N.1; GLUCOSE,POINT OF CARE 94 MG/DL (70-110)
[2021-12-07] MEDS ORDERED: MORPHINE SULFATE 2 MG/ML SYRINGE IVP ONE (18:00)
[2021-12-07] MEDS ORDERED: MORPHINE SULFATE 2 MG/ML SYRINGE ONE (18:04)
[2021-12-07 19:15] VITALS: BP 146/84
[2021-12-07 20:10] LABS: GLUCOMETER DEV NAME(LOC) 6N.1; GLUCOSE,POINT OF CARE 133 MG/DL (70-110)
[2021-12-08 04:00] VITALS: BP 119/75
[2021-12-08] MEDS: NAFCILLIN SODIUM 2 GM in DEXTROSE 5%-WATER 100 ML IV SCH ×5 (04:11→23:42)
[2021-12-08] MEDS: OxyCODONE HCL/ACETAMINOPHEN 5-325 MG TABLET PO PRN ×3 (04:13→20:39)
[2021-12-08] MEDS: INSULIN LISPRO 100 UNITS/ML SQ PRN ×2 (05:52→21:26)
[2021-12-08 06:01] LABS: GLUCOMETER DEV NAME(LOC) 6N.2; GLUCOSE,POINT OF CARE 161 MG/DL (70-110)
[2021-12-08 07:57] VITALS: BP 129/78
[2021-12-08] MEDS: OXYGEN THERAPY IH SCH ×2 (08:00→20:00)
[2021-12-08] MEDS: CHOLECALCIFEROL (VIT D3) 5,000 [125 MCG] UNITS CAPSULE PO SCH (09:00)
[2021-12-08 09:41] LABS: GLUCOMETER DEV NAME(LOC) 6N.1; GLUCOSE,POINT OF CARE 139 MG/DL (70-110)
[2021-12-08] MEDS: LOSARTAN POTASSIUM 25 MG TABLET PO SCH (09:59)
[2021-12-08] MEDS: DOCUSATE SODIUM 100 MG CAPSULE PO SCH ×2 (10:00→20:39)
[2021-12-08] MEDS: FAMOTIDINE 20 MG TABLET PO SCH (10:00)
[2021-12-08 15:30] VITALS: BP 120/72
[2021-12-08 20:03] VITALS: BP 152/89
[2021-12-08 21:06] LABS: GLUCOMETER DEV NAME(LOC) 6N.2; GLUCOSE,POINT OF CARE 151 MG/DL (70-110)
[2021-12-08] MEDS ORDERED: SODIUM CHLORIDE 0.9% 500 ML IV ONE (21:11)
[2021-12-09] MEDS: NAFCILLIN SODIUM 2 GM in DEXTROSE 5%-WATER 100 ML IV SCH ×6 (03:54→23:59)
[2021-12-09 04:45] VITALS: BP 131/78
[2021-12-09 06:11] LABS: GLUCOMETER DEV NAME(LOC) 6N.2; GLUCOSE,POINT OF CARE 156 MG/DL (70-110)
[2021-12-09] MEDS: INSULIN LISPRO 100 UNITS/ML SQ PRN ×3 (06:26→21:27)
[2021-12-09] MEDS: OXYGEN THERAPY IH SCH ×2 (08:00→20:00)
[2021-12-09] MEDS: LOSARTAN POTASSIUM 25 MG TABLET PO SCH (08:21)
[2021-12-09] MEDS: DOCUSATE SODIUM 100 MG CAPSULE PO SCH ×2 (08:21→20:13)
[2021-12-09] MEDS: CHOLECALCIFEROL (VIT D3) 5,000 [125 MCG] UNITS CAPSULE PO SCH (08:21)
[2021-12-09] MEDS: FAMOTIDINE 20 MG TABLET PO SCH (08:21)
[2021-12-09 08:41] VITALS: BP 149/89
[2021-12-09] MEDS: ACETAMINOPHEN 325 MG TABLET PO PRN (11:15)
[2021-12-09 12:06] LABS: GLUCOMETER DEV NAME(LOC) 6N.2; GLUCOSE,POINT OF CARE 162 MG/DL (70-110)
[2021-12-09] MEDS: OxyCODONE HCL/ACETAMINOPHEN 5-325 MG TABLET PO PRN (15:09)
[2021-12-09 16:00] VITALS: BP 148/80
[2021-12-09] MEDS: SODIUM CHLORIDE 0.9% 1,000 ML IV SCH (16:04)
[2021-12-09 17:26] LABS: GLUCOMETER DEV NAME(LOC) 6N.2; GLUCOSE,POINT OF CARE 156 MG/DL (70-110)
[2021-12-09] MEDS: MAGNESIUM HYDROXIDE SUSPENSION 30 ML UDCUP PO PRN (19:14)
[2021-12-09 20:18] VITALS: BP 127/78
[2021-12-09 20:51] LABS: GLUCOMETER DEV NAME(LOC) 6N.2; GLUCOSE,POINT OF CARE 185 MG/DL (70-110)
[2021-12-10] MEDS: NAFCILLIN SODIUM 2 GM in DEXTROSE 5%-WATER 100 ML IV SCH ×4 (04:08→20:35)
[2021-12-10 04:50] VITALS: BP 139/86
[2021-12-10] MEDS: OxyCODONE HCL/ACETAMINOPHEN 5-325 MG TABLET PO PRN (05:57)
[2021-12-10] MEDS: INSULIN LISPRO 100 UNITS/ML SQ PRN ×3 (06:02→22:40)
[2021-12-10 06:21] LABS: GLUCOMETER DEV NAME(LOC) 6N.2; GLUCOSE,POINT OF CARE 175 MG/DL (70-110)
[2021-12-10] MEDS ORDERED: RINGERS SOLUTION,LACTATED 1,000 ML IV ONE ×3 (06:31→12:56)
[2021-12-10] MEDS: OXYGEN THERAPY IH SCH ×2 (08:00→20:00)
[2021-12-10] MEDS: SODIUM CHLORIDE 0.9% 1,000 ML IV SCH (08:40)
[2021-12-10 08:48] VITALS: BP 138/84
[2021-12-10] MEDS ORDERED: CeFAZolin 2 GM/DEXTROSE 50 ML IV ONE (09:00)
[2021-12-10] MEDS: DOCUSATE SODIUM 100 MG CAPSULE PO SCH ×2 (09:00→20:34)
[2021-12-10] MEDS: LOSARTAN POTASSIUM 25 MG TABLET PO SCH (09:00)
[2021-12-10] MEDS: FAMOTIDINE 20 MG TABLET PO SCH (09:00)
[2021-12-10] MEDS: CHOLECALCIFEROL (VIT D3) 5,000 [125 MCG] UNITS CAPSULE PO SCH (09:00)
[2021-12-10 09:08] LABS: BASOPHILS % (AUTO) 0.6 % (0.0-2.0); HEMATOCRIT 23.4 % (41-53); LYMPHOCYTES # (AUTO) 0.9 K/uL (1.0-4.8); LYMPHOCYTES % (AUTO) 12.4 % (22.0-44.0); MEAN CORPUSCULAR HEMOGLOBIN 30.3 pg (26.0-34.0); MEAN CORPUSCULAR HGB CONC 34.1 G/dL (31.0-37.0); MEAN CORPUSCULAR VOLUME 89 fL (80-100); MONOCYTES # (AUTO) 0.6 K/uL (0.1-1.0); MONOCYTES % (AUTO) 7.6 % (2.0-9.0); NEUTROPHILS # (AUTO) 5.8 K/uL (1.8-7.7); NEUTROPHILS % (AUTO) 77.4 % (40.0-70.0); PLATELET COUNT (AUTO) 266 K/uL (150-450); RED BLOOD CELL COUNT(AUTO) 2.64 MIL/uL (4.50-5.90); RED CELL DISTRIBUTION WIDTH 14.2 % (11.5-14.5)
[2021-12-10 09:24] LABS: ALANINE AMINOTRANSFERASE 18 U/L (12-78); ALBUMIN 1.8 g/dL (3.4-5.0); ALKALINE PHOSPHATASE 68 U/L (46-116); ANION GAP 4 mmol/L (8-16); ASPARTATE AMINOTRANSFERASE 15 U/L (15-37); BILIRUBIN,TOTAL 0.4 mg/dL (0.1-1.0); C-REACTIVE PROTEIN QUANT 8.64 mg/dL (0.00-0.30); CALCIUM, TOTAL 8.9 mg/dL (8.8-10.5); CARBON DIOXIDE 32 mmol/L (22-29); CHLORIDE 103 mmol/L (98-107); CREATININE 1.14 mg/dL (0.60-1.30); GLOMERULAR FILTR. RATE CALC > 60 mL/min (>60); GLUCOSE,RANDOM 170 mg/dL (70-110); SODIUM SERUM 139 mmol/L (136-145); UREA NITROGEN, BLOOD 28 mg/dL (7-18)
[2021-12-10] MEDS ORDERED: BUPIVACAINE HCL/PF 0.5% 30 ML VIAL ONE (09:29)
[2021-12-10] MEDS ORDERED: VANCOMYCIN HCL 1 GM/VIAL ONE (09:29)
[2021-12-10] MEDS ORDERED: SODIUM CHLORIDE 0.9% 250 ML IV ONE (09:30)
[2021-12-10] MEDS ORDERED: ETHYL ALCOHOL 62% ANTISEPTIC NASAL SANITIZER 0.6 ML AMPUL NASAL ONE (09:45)
[2021-12-10 09:56] LABS: GLUCOMETER DEV NAME(LOC) SDS.; GLUCOSE,POINT OF CARE 164 MG/DL (70-110)
[2021-12-10 10:14] LABS: INR 1.1 (0.9-1.1); PROTHROMBIN TIME 11.9 SEC (9.4-11.6)
[2021-12-10 10:17] LABS: ANION GAP 7 mmol/L (8-16); CALCIUM, TOTAL 8.7 mg/dL (8.8-10.5); CARBON DIOXIDE 31 mmol/L (22-29); CHLORIDE 103 mmol/L (98-107); GLOMERULAR FILTR. RATE CALC > 60 mL/min (>60); GLUCOSE,RANDOM 180 mg/dL (70-110); POTASSIUM 3.9 mmol/L (3.5-5.1); SODIUM SERUM 141 mmol/L (136-145); UREA NITROGEN, BLOOD 28 mg/dL (7-18)
[2021-12-10 10:26] LABS: ERYTHROCYTE SEDIMENTATION RATE 150 MM/HR (0-15)
[2021-12-10] MEDS ORDERED: BACITRACIN 28 GM OINTMENT TP PRN (11:45)
[2021-12-10] MEDS ORDERED: ZOLPIDEM TARTRATE 10 MG TABLET PO PRN (11:45)
[2021-12-10] MEDS ORDERED: SUCCINYLCHOLINE CHLORIDE 20 MG/ML 10 ML VIAL IVP ONE (12:00)
[2021-12-10] MEDS ORDERED: DEXAMETHASONE SOD PHOS 4 MG/ML VIAL IVP ONE (12:00)
[2021-12-10] MEDS ORDERED: PROPOFOL 1% 20 ML VIAL IVP ONE (12:00)
[2021-12-10] MEDS ORDERED: MIDAZOLAM HCL 2 MG/2 ML VIAL IVP ONE (12:00)
[2021-12-10] MEDS ORDERED: ONDANSETRON HCL 4 MG/2 ML VIAL IVP ONE (12:00)
[2021-12-10] MEDS ORDERED: FentaNYL CITRATE PF 100 MCG/2 ML VIAL IVP ONE (12:00)
[2021-12-10] MEDS ORDERED: LIDOCAINE/PF 2% 5 ML SYRINGE IVP ONE (12:00)
[2021-12-10] MEDS ORDERED: KETAMINE HCL 50 MG/ML 10 ML VIAL IVP ONE (12:00)
[2021-12-10] MEDS ORDERED: 0.9% SODIUM CHLORIDE 1000 ML IRRIG SOLUTION BAG IRRIG ONE (12:45)
[2021-12-10] MEDS ORDERED: BUPIVACAINE HCL/PF 0.5% 30 ML VIAL ID ONE (13:00)
[2021-12-10] MEDS ORDERED: VANCOMYCIN HCL 1 GM/VIAL IRRIG ONE (13:30)
[2021-12-10] MEDS ORDERED: ALBUMIN HUMAN 5%-12.5GM/250ML 0 ML IV ONE (13:33)
[2021-12-10] MEDS ORDERED: ALBUMIN HUMAN 25%-12.5GM/50ML 50 ML ONE (13:34)
[2021-12-10] MEDS ORDERED: ALBUMIN HUMAN 25%-12.5GM/50ML 50 ML IV ONE (13:45)
[2021-12-10] MEDS ORDERED: VANCOMYCIN HCL 1 GM/VIAL TP ONE (14:00)
[2021-12-10] MEDS ORDERED: THROMBIN, BOVINE 20000 UNITS/VIAL POWDER TP ONE (14:00)
[2021-12-10] MEDS ORDERED: PROPOFOL 1000 MG/ISO-OSM 100 ML ONE (14:05)
[2021-12-10] MEDS ORDERED: SODIUM CHLORIDE 0.9% 1,000 ML ONE (14:30)
[2021-12-10] MEDS ORDERED: HYDROmorphone 2 MG/ML VIAL ONE (16:11)
[2021-12-10] MEDS ORDERED: ACETAMINOPHEN 1000 MG/ISO-OSM 100 ML IV ONE (16:15)
[2021-12-10] MEDS ORDERED: HYDROmorphone 2 MG/ML VIAL IVP PRN ×2 (16:15)
[2021-12-10 17:00] VITALS: BP 170/68
[2021-12-10 17:54] LABS: BASOPHILS % (AUTO) 0.2 % (0.0-2.0); EOSINOPHILS % (AUTO) 0.1 % (1.0-6.0); HEMATOCRIT 21.3 % (41-53); HEMOGLOBIN 7.3 g/dL (13.5-17.5); LYMPHOCYTES # (AUTO) 0.9 K/uL (1.0-4.8); LYMPHOCYTES % (AUTO) 9.8 % (22.0-44.0); MEAN CORPUSCULAR HEMOGLOBIN 30.1 pg (26.0-34.0); MEAN CORPUSCULAR HGB CONC 34.1 G/dL (31.0-37.0); MEAN CORPUSCULAR VOLUME 88 fL (80-100); MONOCYTES # (AUTO) 0.4 K/uL (0.1-1.0); MONOCYTES % (AUTO) 4.6 % (2.0-9.0); NEUTROPHILS # (AUTO) 7.7 K/uL (1.8-7.7); PLATELET COUNT (AUTO) 231 K/uL (150-450); RED BLOOD CELL COUNT(AUTO) 2.41 MIL/uL (4.50-5.90); RED CELL DISTRIBUTION WIDTH 14.1 % (11.5-14.5)
[2021-12-10] MEDS ORDERED: VANCOMYCIN HCL 1 GM/D5% WATER 200 ML IV SCH (18:00)
[2021-12-10 18:02] LABS: NEUTROPHILS % (AUTO) 85.3 % (40.0-70.0)
[2021-12-10] MEDS: CeFAZolin 1 GM/DEXTROSE 50 ML IV SCH (18:11)
[2021-12-10 18:15] LABS: ANION GAP 7 mmol/L (8-16); CALCIUM, TOTAL 8.4 mg/dL (8.8-10.5); CARBON DIOXIDE 28 mmol/L (22-29); CHLORIDE 105 mmol/L (98-107); CREATININE 1.27 mg/dL (0.60-1.30); GLOMERULAR FILTR. RATE CALC > 60 mL/min (>60); GLUCOSE,RANDOM 179 mg/dL (70-110); POTASSIUM 4.2 mmol/L (3.5-5.1); SODIUM SERUM 140 mmol/L (136-145); UREA NITROGEN, BLOOD 31 mg/dL (7-18)
[2021-12-10] MEDS: HYDROmorphone 2 MG/ML VIAL IVP PRN ×2 (18:19→22:24)
[2021-12-10] MEDS: MAGNESIUM HYDROXIDE SUSPENSION 30 ML UDCUP PO PRN (18:20)
[2021-12-10] MEDS: DEXAMETHASONE SOD PHOS 4 MG/ML VIAL IVP SCH (18:20)
[2021-12-10 20:00] VITALS: BP 151/61
[2021-12-10 20:11] LABS: GLUCOSE,POINT OF CARE 171 MG/DL (70-110)
[2021-12-10] MEDS ORDERED: DOCUSATE SODIUM 100 MG CAPSULE PO SCH (21:00)
[2021-12-10 23:37] LABS: GLUCOSE,POINT OF CARE 150 MG/DL (70-110)
[2021-12-11] VITALS (17 sets, daily range): BP systolic 124–179; BP diastolic 48–84
[2021-12-11] MEDS: NAFCILLIN SODIUM 2 GM in DEXTROSE 5%-WATER 100 ML IV SCH ×6 (00:10→21:10)
[2021-12-11] MEDS: DEXAMETHASONE SOD PHOS 4 MG/ML VIAL IVP SCH ×4 (00:11→17:58)
[2021-12-11] MEDS: CeFAZolin 1 GM/DEXTROSE 50 ML IV SCH (01:05)
[2021-12-11] MEDS: SODIUM CHLORIDE 0.9% 1,000 ML IV SCH ×2 (01:43→16:04)
[2021-12-11 05:06] LABS: GLUCOSE,POINT OF CARE 159 MG/DL (70-110)
[2021-12-11] MEDS ORDERED: LIDOCAINE 1%/EPI 1:200,000/PF 30 ML VIAL ONE (06:59)
[2021-12-11] MEDS ORDERED: RINGERS SOLUTION,LACTATED 0 ML IV ONE (07:00)
[2021-12-11] MEDS ORDERED: VANCOMYCIN HCL 1 GM/VIAL ONE (07:00)
[2021-12-11] MEDS ORDERED: MICROFIBRILLAR COLLAGEN 1 GM PACKAGE TP ONE (07:00)
[2021-12-11] MEDS: OXYGEN THERAPY IH SCH ×2 (08:00→20:00)
[2021-12-11] MEDS: HYDROmorphone 2 MG/ML VIAL IVP PRN ×2 (08:07→16:03)
[2021-12-11] MEDS: CHOLECALCIFEROL (VIT D3) 5,000 [125 MCG] UNITS CAPSULE PO SCH (08:08)
[2021-12-11] MEDS: LOSARTAN POTASSIUM 25 MG TABLET PO SCH (08:08)
[2021-12-11] MEDS: DOCUSATE SODIUM 100 MG CAPSULE PO SCH ×2 (08:08→21:13)
[2021-12-11] MEDS: MAGNESIUM HYDROXIDE SUSPENSION 30 ML UDCUP PO PRN (08:08)
[2021-12-11] MEDS: FAMOTIDINE 20 MG TABLET PO SCH (08:09)
[2021-12-11 09:12] LABS: GLUCOSE,POINT OF CARE 135 MG/DL (70-110)
[2021-12-11] MEDS ORDERED: BISACODYL 5 MG EC TABLET PO PRN (10:15)
[2021-12-11] MEDS ORDERED: BISACODYL 10 MG RECTAL RECTAL SUPPOSITORY PR ONE (10:52)
[2021-12-11] MEDS: BISACODYL 10 MG RECTAL RECTAL SUPPOSITORY PR SCH ×2 (12:01→21:12)
[2021-12-11 13:06] LABS: GLUCOSE,POINT OF CARE 137 MG/DL (70-110)
[2021-12-11] MEDS: INSULIN LISPRO 100 UNITS/ML SQ PRN ×2 (17:26→21:38)
[2021-12-11 18:46] LABS: GLUCOSE,POINT OF CARE 173 MG/DL (70-110)
[2021-12-11] MEDS: OxyCODONE HCL/ACETAMINOPHEN 5-325 MG TABLET PO PRN (21:11)
[2021-12-11 21:41] LABS: GLUCOSE,POINT OF CARE 185 MG/DL (70-110)
[2021-12-11] MEDS ORDERED: SODIUM CHLORIDE 0.9% 500 ML IV ONE (21:59)
[2021-12-11] MEDS: ACETAMINOPHEN 325 MG TABLET PO PRN (22:22)
[2021-12-12] VITALS (17 sets, daily range): BP systolic 90–172; BP diastolic 60–77
[2021-12-12] MEDS: NAFCILLIN SODIUM 2 GM in DEXTROSE 5%-WATER 100 ML IV SCH ×6 (00:35→19:29)
[2021-12-12] MEDS: DEXAMETHASONE SOD PHOS 4 MG/ML VIAL IVP SCH (00:35)
[2021-12-12 06:01] LABS: GLUCOSE,POINT OF CARE 148 MG/DL (70-110)
[2021-12-12] MEDS: OxyCODONE HCL/ACETAMINOPHEN 5-325 MG TABLET PO PRN (06:03)
[2021-12-12 06:36] LABS: BASOPHILS % (AUTO) 0.8 % (0.0-2.0); EOSINOPHILS % (AUTO) 0.5 % (1.0-6.0); HEMATOCRIT 25.6 % (41-53); HEMOGLOBIN 8.9 g/dL (13.5-17.5); LYMPHOCYTES # (AUTO) 1.6 K/uL (1.0-4.8); LYMPHOCYTES % (AUTO) 17.4 % (22.0-44.0); MEAN CORPUSCULAR HEMOGLOBIN 30.9 pg (26.0-34.0); MEAN CORPUSCULAR HGB CONC 34.6 G/dL (31.0-37.0); MEAN CORPUSCULAR VOLUME 89 fL (80-100); MONOCYTES # (AUTO) 0.9 K/uL (0.1-1.0); MONOCYTES % (AUTO) 9.3 % (2.0-9.0); NEUTROPHILS # (AUTO) 6.8 K/uL (1.8-7.7); PLATELET COUNT (AUTO) 217 K/uL (150-450); RED BLOOD CELL COUNT(AUTO) 2.87 MIL/uL (4.50-5.90)
[2021-12-12 06:49] LABS: ANION GAP 6 mmol/L (8-16); CALCIUM, TOTAL 8.1 mg/dL (8.8-10.5); CARBON DIOXIDE 28 mmol/L (22-29); CHLORIDE 105 mmol/L (98-107); CREATININE 0.95 mg/dL (0.60-1.30); GLOMERULAR FILTR. RATE CALC > 60 mL/min (>60); GLUCOSE,RANDOM 150 mg/dL (70-110); POTASSIUM 3.8 mmol/L (3.5-5.1); SODIUM SERUM 139 mmol/L (136-145); UREA NITROGEN, BLOOD 24 mg/dL (7-18)
[2021-12-12 06:53] LABS: INR 1.1 (0.9-1.1); PROTHROMBIN TIME 11.9 SEC (9.4-11.6)
[2021-12-12] MEDS ORDERED: GELATIN SPONGE,ABSORBABLE 100 MM TP ONE (06:56)
[2021-12-12] MEDS ORDERED: LIDOCAINE 1%/EPI 1:200,000/PF 30 ML VIAL ONE (06:56)
[2021-12-12] MEDS ORDERED: SODIUM CHLORIDE 0.9% 100 ML ONE (06:56)
[2021-12-12] MEDS ORDERED: BUPIVACAINE HCL/PF 0.5% 30 ML VIAL ONE (06:56)
[2021-12-12] MEDS ORDERED: THROMBIN, BOVINE 20000 UNITS/VIAL POWDER TP ONE ×2 (06:57→12:26)
[2021-12-12] MEDS ORDERED: VANCOMYCIN HCL 1 GM/VIAL ONE ×3 (07:16→10:06)
[2021-12-12] MEDS ORDERED: SODIUM CHLORIDE 0.9% 10 ML ONE (07:18)
[2021-12-12] MEDS: OXYGEN THERAPY IH SCH ×2 (08:00→19:21)
[2021-12-12] MEDS ORDERED: CefTRIAXone SODIUM 1 GM/VIAL ONE (08:46)
[2021-12-12] MEDS ORDERED: CefTRIAXone SODIUM 1 GM/VIAL IV ONE (08:47)
[2021-12-12] MEDS ORDERED: VANCOMYCIN HCL 1 GM/VIAL MISC ONE (08:47)
[2021-12-12] MEDS ORDERED: BUPIVACAINE HCL/PF 0.5% 30 ML VIAL ID ONE (08:47)
[2021-12-12] MEDS: BISACODYL 10 MG RECTAL RECTAL SUPPOSITORY PR SCH ×2 (09:00→23:03)
[2021-12-12] MEDS: DOCUSATE SODIUM 100 MG CAPSULE PO SCH ×2 (09:00→21:00)
[2021-12-12] MEDS ORDERED: SODIUM CHLORIDE 0.9% 1,000 ML ONE (09:05)
[2021-12-12] MEDS ORDERED: VANCOMYCIN HCL 1 GM in DEXTROSE 5%-WATER 250 ML IV ONE (11:30)
[2021-12-12] MEDS ORDERED: PROPOFOL 1000 MG/ISO-OSM 100 ML ONE (11:56)
[2021-12-12] MEDS ORDERED: MIDAZOLAM HCL 2 MG/2 ML VIAL IVP ONE (12:00)
[2021-12-12] MEDS ORDERED: PROPOFOL 1% 20 ML VIAL IVP ONE (12:00)
[2021-12-12] MEDS ORDERED: PHENYLEPHRINE HCL 10 MG/ML VIAL IVP ONE (12:00)
[2021-12-12] MEDS ORDERED: KETAMINE HCL 50 MG/ML 10 ML VIAL IVP ONE (12:00)
[2021-12-12] MEDS ORDERED: SUCCINYLCHOLINE CHLORIDE 20 MG/ML 10 ML VIAL IVP ONE (12:00)
[2021-12-12] MEDS ORDERED: LIDOCAINE/PF 2% 5 ML SYRINGE IVP ONE ×2 (12:00)
[2021-12-12] MEDS ORDERED: HYDROmorphone 2 MG/ML VIAL IVP ONE ×2 (12:00→12:15)
[2021-12-12] MEDS ORDERED: ONDANSETRON HCL 4 MG/2 ML VIAL IVP ONE (12:00)
[2021-12-12] MEDS ORDERED: FentaNYL CITRATE PF 250 MCG/5 ML VIAL IVP ONE (12:00)
[2021-12-12] MEDS: SODIUM CHLORIDE 0.9% 1,000 ML IV SCH (12:10)
[2021-12-12] MEDS: CHOLECALCIFEROL (VIT D3) 5,000 [125 MCG] UNITS CAPSULE PO SCH (12:11)
[2021-12-12] MEDS: FAMOTIDINE 20 MG TABLET PO SCH (12:11)
[2021-12-12] MEDS: LOSARTAN POTASSIUM 25 MG TABLET PO SCH (12:11)
[2021-12-12] MEDS ORDERED: SODIUM CHLORIDE 0.9% 250 ML IV ONE (12:37)
[2021-12-12] MEDS: PROPOFOL 1000 MG/ISO-OSM 100 ML IV PRN ×3 (12:55→22:32)
[2021-12-12] MEDS: FentaNYL CIT 1000MCG/0.9% NACL 100 ML IV PRN ×2 (12:57→23:01)
[2021-12-12] MEDS: INSULIN LISPRO 100 UNITS/ML SQ PRN (13:53)
[2021-12-12 14:06] LABS: GLUCOSE,POINT OF CARE 179 MG/DL (70-110)
[2021-12-12 17:47] LABS: GLUCOSE,POINT OF CARE 125 MG/DL (70-110)
[2021-12-12 21:51] LABS: GLUCOSE,POINT OF CARE 134 MG/DL (70-110)
[2021-12-12 23:27] LABS: ABG BASE EXCESS -0.6 mmol/L (-2.0-3.0); ABG CARBOXYHEMOGLOBIN 0.3 % (0.0-1.5); ABG HCO3 24.5 mmol/L (22.0-26.0); ABG METHEMOGLOBIN 0.3 % (0.0-1.5); ABG OXYGEN CONTENT 13.6 mL/dL (15.0-23.0); ABG OXYGEN SATURATION 98.6 % (95.0-98.0); ABG PCO2 29 mmHg (35-45); ABG PH 7.514 (7.35-7.450); ABG TOTAL HEMOGLOBIN 9.7 G/dL (12.0-18.0); PO2, ARTERIAL BG 124.2 mmHg (88.0-96.0); TEMPERATURE, FAHRENHEIT, BG 98.5 FAHREN (96.0-98.6)
[2021-12-12 23:29] LABS: SITE, BLOOD GAS LFT RADIAL
[2021-12-12 23:30] LABS: O2 DEVICE,BLOOD GAS VENTILATOR (ROOM AIR); PEEP,BG 5 cm H2O; SOURCE, BLOOD GAS ARTERIAL LINE; VT, ABG 450 ml
[2021-12-12 23:31] LABS: SPONTANEOUS VT, BG 434 ml
[2021-12-13] VITALS (8 sets, daily range): BP systolic 96–159; BP diastolic 36–67
[2021-12-13] MEDS: NAFCILLIN SODIUM 2 GM in DEXTROSE 5%-WATER 100 ML IV SCH ×6 (00:47→20:41)
[2021-12-13] MEDS: FentaNYL CIT 1000MCG/0.9% NACL 100 ML IV PRN ×4 (03:14→20:53)
[2021-12-13 04:52] LABS: BASOPHILS % (AUTO) 0.4 % (0.0-2.0); EOSINOPHILS % (AUTO) 1.3 % (1.0-6.0); HEMATOCRIT 27.7 % (41-53); HEMOGLOBIN 9.6 g/dL (13.5-17.5); LYMPHOCYTES # (AUTO) 1.2 K/uL (1.0-4.8); LYMPHOCYTES % (AUTO) 11.5 % (22.0-44.0); MEAN CORPUSCULAR HEMOGLOBIN 30.4 pg (26.0-34.0); MEAN CORPUSCULAR HGB CONC 34.6 G/dL (31.0-37.0); MEAN CORPUSCULAR VOLUME 88 fL (80-100); MONOCYTES % (AUTO) 9.2 % (2.0-9.0); NEUTROPHILS # (AUTO) 8.1 K/uL (1.8-7.7); NEUTROPHILS % (AUTO) 77.6 % (40.0-70.0); PLATELET COUNT (AUTO) 188 K/uL (150-450); RED BLOOD CELL COUNT(AUTO) 3.15 MIL/uL (4.50-5.90); RED CELL DISTRIBUTION WIDTH 14.2 % (11.5-14.5)
[2021-12-13] MEDS: SODIUM CHLORIDE 0.9% 1,000 ML IV SCH (04:53)
[2021-12-13 05:04] LABS: CALCIUM, TOTAL 8.1 mg/dL (8.8-10.5); CREATININE 1.38 mg/dL (0.60-1.30); POTASSIUM 3.6 mmol/L (3.5-5.1)
[2021-12-13 05:51] LABS: GLUCOSE,POINT OF CARE 122 MG/DL (70-110)
[2021-12-13] MEDS: LOSARTAN POTASSIUM 25 MG TABLET PO SCH (08:03)
[2021-12-13] MEDS: FAMOTIDINE 20 MG TABLET PO SCH (08:03)
[2021-12-13] MEDS: CHOLECALCIFEROL (VIT D3) 5,000 [125 MCG] UNITS CAPSULE PO SCH (08:04)
[2021-12-13] MEDS: BISACODYL 10 MG RECTAL RECTAL SUPPOSITORY PR SCH ×2 (08:06→20:42)
[2021-12-13] MEDS: PROPOFOL 1000 MG/ISO-OSM 100 ML IV PRN ×3 (08:42→17:36)
[2021-12-13] MEDS: DOCUSATE SODIUM 100 MG/10 ML LIQUID UDCUP PO SCH ×2 (11:48→20:41)
[2021-12-13 13:18] LABS: ABG BASE EXCESS -0.3 mmol/L (-2.0-3.0); ABG CARBOXYHEMOGLOBIN 0.1 % (0.0-1.5); ABG HCO3 24.5 mmol/L (22.0-26.0); ABG METHEMOGLOBIN 0.3 % (0.0-1.5); ABG OXYGEN CONTENT 13.5 mL/dL (15.0-23.0); ABG OXYGEN SATURATION 97.8 % (95.0-98.0); ABG OXYHEMOGLOBIN 97.4 % (94.0-100.0); ABG PCO2 36 mmHg (35-45); ABG TOTAL HEMOGLOBIN 9.7 G/dL (12.0-18.0); PO2, ARTERIAL BG 100.5 mmHg (88.0-96.0); SOURCE, BLOOD GAS ARTERIAL; TEMPERATURE, FAHRENHEIT, BG 98.2 FAHREN (96.0-98.6)
[2021-12-13 13:19] LABS: ABG A-A DIFF O2 71.3 mmHg (10-20.0); O2 DEVICE,BLOOD GAS VENTILATOR (ROOM AIR); PEEP,BG 5 cm H2O; SITE, BLOOD GAS ARTERIAL LINE; SPONTANEOUS VT, BG 425 ml; VT, ABG 450 ml
[2021-12-13] MEDS: HYDROmorphone 2 MG/ML VIAL IVP PRN (15:48)
[2021-12-13] MEDS: ACETAMINOPHEN 325 MG TABLET PO PRN ×2 (16:13→20:42)
[2021-12-14] VITALS (9 sets, daily range): BP systolic 119–163; BP diastolic 43–71
[2021-12-14] MEDS: NAFCILLIN SODIUM 2 GM in DEXTROSE 5%-WATER 100 ML IV SCH ×6 (00:03→20:31)
[2021-12-14] MEDS: SODIUM CHLORIDE 0.9% 1,000 ML IV SCH ×2 (00:10→13:27)
[2021-12-14 00:11] LABS: GLUCOSE,POINT OF CARE 115 MG/DL (70-110)
[2021-12-14] MEDS: FentaNYL CIT 1000MCG/0.9% NACL 100 ML IV PRN ×5 (00:38→21:41)
[2021-12-14] MEDS: PROPOFOL 1000 MG/ISO-OSM 100 ML IV PRN ×4 (04:41→21:18)
[2021-12-14 05:21] LABS: GLUCOSE,POINT OF CARE 117 MG/DL (70-110)
[2021-12-14 05:48] LABS: BASOPHILS % (AUTO) 0.6 % (0.0-2.0); EOSINOPHILS % (AUTO) 2.5 % (1.0-6.0); HEMATOCRIT 25.5 % (41-53); HEMOGLOBIN 8.6 g/dL (13.5-17.5); LYMPHOCYTES # (AUTO) 0.9 K/uL (1.0-4.8); LYMPHOCYTES % (AUTO) 8.3 % (22.0-44.0); MEAN CORPUSCULAR HEMOGLOBIN 30.5 pg (26.0-34.0); MEAN CORPUSCULAR HGB CONC 33.9 G/dL (31.0-37.0); MEAN CORPUSCULAR VOLUME 90 fL (80-100); MONOCYTES # (AUTO) 0.8 K/uL (0.1-1.0); MONOCYTES % (AUTO) 7.4 % (2.0-9.0); NEUTROPHILS # (AUTO) 8.6 K/uL (1.8-7.7); NEUTROPHILS % (AUTO) 81.2 % (40.0-70.0); PLATELET COUNT (AUTO) 162 K/uL (150-450); RED BLOOD CELL COUNT(AUTO) 2.83 MIL/uL (4.50-5.90); RED CELL DISTRIBUTION WIDTH 14.6 % (11.5-14.5)
[2021-12-14 06:14] LABS: ALBUMIN 1.4 g/dL (3.4-5.0); BILIRUBIN,TOTAL 0.7 mg/dL (0.1-1.0); C-REACTIVE PROTEIN QUANT 20.86 mg/dL (0.00-0.30); CALCIUM, TOTAL 7.4 mg/dL (8.8-10.5); CREATININE 1.46 mg/dL (0.60-1.30); POTASSIUM 3.2 mmol/L (3.5-5.1); TOTAL PROTEIN, SERUM 5.6 g/dL (6.4-8.2)
[2021-12-14] MEDS ORDERED: POTASSIUM CHLORIDE 10% 40 MEQ/30 ML LIQUID UDCUP NG ONE (08:30)
[2021-12-14] MEDS: DOCUSATE SODIUM 100 MG/10 ML LIQUID UDCUP PO SCH ×2 (08:40→20:31)
[2021-12-14] MEDS: LOSARTAN POTASSIUM 25 MG TABLET PO SCH (08:41)
[2021-12-14] MEDS: CHOLECALCIFEROL (VIT D3) 5,000 [125 MCG] UNITS CAPSULE PO SCH (08:41)
[2021-12-14] MEDS: BISACODYL 10 MG RECTAL RECTAL SUPPOSITORY PR SCH ×2 (08:41→20:32)
[2021-12-14] MEDS: FAMOTIDINE 20 MG TABLET PO SCH (08:41)
[2021-12-14] MEDS: MIDAZOLAM HCL 100 MG in SODIUM CHLORIDE 0.9% 180 ML IV PRN (13:33)
[2021-12-14 16:47] LABS: GLUCOSE,POINT OF CARE 116 MG/DL (70-110)
[2021-12-15] VITALS (8 sets, daily range): BP systolic 105–157; BP diastolic 31–82
[2021-12-15] MEDS: NAFCILLIN SODIUM 2 GM in DEXTROSE 5%-WATER 100 ML IV SCH ×7 (00:32→23:24)
[2021-12-15] MEDS: PROPOFOL 1000 MG/ISO-OSM 100 ML IV PRN ×2 (05:00→07:32)
[2021-12-15] MEDS: SODIUM CHLORIDE 0.9% 1,000 ML IV SCH ×2 (05:33→21:46)
[2021-12-15 06:07] LABS: BASOPHILS % (AUTO) 0.3 % (0.0-2.0); EOSINOPHILS % (AUTO) 1.5 % (1.0-6.0); LYMPHOCYTES # (AUTO) 0.5 K/uL (1.0-4.8); MEAN CORPUSCULAR HEMOGLOBIN 29.9 pg (26.0-34.0); MEAN CORPUSCULAR HGB CONC 33.2 G/dL (31.0-37.0); MEAN CORPUSCULAR VOLUME 90 fL (80-100); MONOCYTES # (AUTO) 0.6 K/uL (0.1-1.0); MONOCYTES % (AUTO) 3.6 % (2.0-9.0); NEUTROPHILS # (AUTO) 15.2 K/uL (1.8-7.7); PLATELET COUNT (AUTO) 210 K/uL (150-450); RED CELL DISTRIBUTION WIDTH 14.3 % (11.5-14.5)
[2021-12-15 06:14] LABS: NEUTROPHILS % (AUTO) 91.6 % (40.0-70.0)
[2021-12-15 06:18] LABS: INR 1.2 (0.9-1.1); PROTHROMBIN TIME 12.5 SEC (9.4-11.6)
[2021-12-15 06:21] LABS: ANION GAP 8 mmol/L (8-16); CALCIUM, TOTAL 7.4 mg/dL (8.8-10.5); CARBON DIOXIDE 23 mmol/L (22-29); CHLORIDE 110 mmol/L (98-107); CREATININE 1.26 mg/dL (0.60-1.30); GLOMERULAR FILTR. RATE CALC > 60 mL/min (>60); GLUCOSE,RANDOM 136 mg/dL (70-110); POTASSIUM 3.1 mmol/L (3.5-5.1); SODIUM SERUM 141 mmol/L (136-145); UREA NITROGEN, BLOOD 27 mg/dL (7-18)
[2021-12-15] MEDS ORDERED: BISACODYL 10 MG RECTAL RECTAL SUPPOSITORY PR PRN (07:15)
[2021-12-15] MEDS: FentaNYL CIT 1000MCG/0.9% NACL 100 ML IV PRN (07:28)
[2021-12-15] MEDS: MIDAZOLAM HCL 100 MG in SODIUM CHLORIDE 0.9% 180 ML IV PRN (07:30)
[2021-12-15] MEDS ORDERED: BENZOCAINE 20% 50 MCG/SPRAY 57 GM TP SCH (07:30)
[2021-12-15] MEDS: POTASSIUM CHL 10 MEQ/WATER 50 ML IV PRN ×3 (08:31→11:24)
[2021-12-15] MEDS: LOSARTAN POTASSIUM 25 MG TABLET PO SCH (09:08)
[2021-12-15] MEDS: DOCUSATE SODIUM 100 MG/10 ML LIQUID UDCUP PO SCH ×2 (09:09→21:44)
[2021-12-15] MEDS: CHOLECALCIFEROL (VIT D3) 5,000 [125 MCG] UNITS CAPSULE PO SCH (09:09)
[2021-12-15] MEDS: FAMOTIDINE 20 MG TABLET PO SCH (09:09)
[2021-12-15 10:33] LABS: ABG A-A DIFF O2 105.5 mmHg (10-20.0); ABG BASE EXCESS -2.9 mmol/L (-2.0-3.0); ABG CARBOXYHEMOGLOBIN 0.4 % (0.0-1.5); ABG HCO3 22.5 mmol/L (22.0-26.0); ABG METHEMOGLOBIN 0.3 % (0.0-1.5); ABG OXYGEN CONTENT 13.1 mL/dL (15.0-23.0); ABG OXYGEN SATURATION 95.1 % (95.0-98.0); ABG OXYHEMOGLOBIN 94.4 % (94.0-100.0); ABG PCO2 33 mmHg (35-45); ABG PH 7.432 (7.35-7.450); ABG TOTAL HEMOGLOBIN 9.8 G/dL (12.0-18.0); O2 DEVICE,BLOOD GAS VENTILATOR (ROOM AIR); PO2, ARTERIAL BG 69.9 mmHg (88.0-96.0); SITE, BLOOD GAS ARTERIAL LINE; SOURCE, BLOOD GAS ARTERIAL; TEMPERATURE, FAHRENHEIT, BG 98.6 FAHREN (96.0-98.6)
[2021-12-15 10:34] LABS: CPAP, BG 0 cm H2O; PRESSURE SUPPORT, BG 8 cm H2O; SPONTANEOUS VT, BG 450 ml; VENT MODE, BG CPAP (ROOM AIR)
[2021-12-15 12:21] LABS: GLUCOSE,POINT OF CARE 106 MG/DL (70-110)
[2021-12-15] MEDS: HYDROmorphone 2 MG/ML VIAL IVP PRN (14:03)
[2021-12-15] MEDS: OxyCODONE HCL/ACETAMINOPHEN 5-325 MG TABLET PO PRN (16:42)
[2021-12-16] VITALS (7 sets, daily range): BP systolic 112–132; BP diastolic 64–88
[2021-12-16] MEDS: NAFCILLIN SODIUM 2 GM in DEXTROSE 5%-WATER 100 ML IV SCH ×6 (03:31→23:58)
[2021-12-16 05:31] LABS: BASOPHILS % (AUTO) 0.5 % (0.0-2.0); HEMATOCRIT 28.3 % (41-53); HEMOGLOBIN 9.8 g/dL (13.5-17.5); LYMPHOCYTES # (AUTO) 0.9 K/uL (1.0-4.8); LYMPHOCYTES % (AUTO) 6.2 % (22.0-44.0); MEAN CORPUSCULAR HEMOGLOBIN 31.1 pg (26.0-34.0); MEAN CORPUSCULAR HGB CONC 34.7 G/dL (31.0-37.0); MEAN CORPUSCULAR VOLUME 90 fL (80-100); MONOCYTES # (AUTO) 0.8 K/uL (0.1-1.0); MONOCYTES % (AUTO) 5.3 % (2.0-9.0); NEUTROPHILS # (AUTO) 12.3 K/uL (1.8-7.7); PLATELET COUNT (AUTO) 253 K/uL (150-450); RED BLOOD CELL COUNT(AUTO) 3.16 MIL/uL (4.50-5.90); RED CELL DISTRIBUTION WIDTH 14.7 % (11.5-14.5)
[2021-12-16] MEDS: FAMOTIDINE 20 MG TABLET PO SCH (07:42)
[2021-12-16] MEDS: LOSARTAN POTASSIUM 25 MG TABLET PO SCH (07:42)
[2021-12-16] MEDS: CHOLECALCIFEROL (VIT D3) 5,000 [125 MCG] UNITS CAPSULE PO SCH (07:42)
[2021-12-16] MEDS: DOCUSATE SODIUM 100 MG/10 ML LIQUID UDCUP PO SCH ×2 (07:42→20:46)
[2021-12-16] MEDS: OxyCODONE HCL/ACETAMINOPHEN 5-325 MG TABLET PO PRN ×3 (07:43→20:51)
[2021-12-16 09:00] LABS: CALCIUM, TOTAL 7.9 mg/dL (8.8-10.5); CREATININE 1.84 mg/dL (0.60-1.30); POTASSIUM 3.6 mmol/L (3.5-5.1)
[2021-12-16] MEDS: POTASSIUM CHL 10 MEQ/WATER 50 ML IV PRN ×3 (09:20→10:48)
[2021-12-16] MEDS: HYDROmorphone 2 MG/ML VIAL IVP PRN (15:17)
[2021-12-16] MEDS: SODIUM CHLORIDE 0.9% 1,000 ML IV SCH (15:39)
[2021-12-16 18:21] LABS: GLUCOSE,POINT OF CARE 112 MG/DL (70-110)
[2021-12-16 18:26] LABS: GLUCOMETER DEV NAME(LOC) 5N.1C; GLUCOSE,POINT OF CARE 156 MG/DL (70-110)
[2021-12-16 23:07] LABS: GLUCOMETER DEV NAME(LOC) 5N.1C; GLUCOSE,POINT OF CARE 135 MG/DL (70-110)
[2021-12-17 00:06] VITALS: BP 123/74
[2021-12-17] MEDS: SODIUM CHLORIDE 0.9% 1,000 ML IV SCH (02:58)
[2021-12-17] MEDS: MAG HYDROX/AL HYDROX/SIMETH 30 ML SUSP UDCUP PO PRN ×2 (03:18→08:59)
[2021-12-17] MEDS: NAFCILLIN SODIUM 2 GM in DEXTROSE 5%-WATER 100 ML IV SCH ×6 (04:24→23:27)
[2021-12-17 05:07] VITALS: BP 141/83
[2021-12-17] MEDS: HYDROmorphone 2 MG/ML VIAL IVP PRN ×2 (05:43→15:43)
[2021-12-17] MEDS: INSULIN LISPRO 100 UNITS/ML SQ PRN (06:31)
[2021-12-17] MEDS ORDERED: MAGNESIUM HYDROXIDE SUSPENSION 30 ML UDCUP PO PRN (07:15)
[2021-12-17 07:54] LABS: BASOPHILS % (AUTO) 0.5 % (0.0-2.0); EOSINOPHILS % (AUTO) 2.8 % (1.0-6.0); HEMATOCRIT 30.1 % (41-53); HEMOGLOBIN 10.5 g/dL (13.5-17.5); LYMPHOCYTES # (AUTO) 0.6 K/uL (1.0-4.8); LYMPHOCYTES % (AUTO) 6.9 % (22.0-44.0); MEAN CORPUSCULAR HEMOGLOBIN 31.1 pg (26.0-34.0); MEAN CORPUSCULAR HGB CONC 34.8 G/dL (31.0-37.0); MEAN CORPUSCULAR VOLUME 89 fL (80-100); MONOCYTES # (AUTO) 0.5 K/uL (0.1-1.0); MONOCYTES % (AUTO) 5.4 % (2.0-9.0); NEUTROPHILS % (AUTO) 84.4 % (40.0-70.0); PLATELET COUNT (AUTO) 333 K/uL (150-450); RED BLOOD CELL COUNT(AUTO) 3.38 MIL/uL (4.50-5.90); RED CELL DISTRIBUTION WIDTH 14.5 % (11.5-14.5)
[2021-12-17 08:08] LABS: ALBUMIN 1.3 g/dL (3.4-5.0); BILIRUBIN,TOTAL 1.2 mg/dL (0.1-1.0); C-REACTIVE PROTEIN QUANT 15.64 mg/dL (0.00-0.30); CALCIUM, TOTAL 8.2 mg/dL (8.8-10.5); CREATININE 1.5 mg/dL (0.60-1.30); POTASSIUM 3.5 mmol/L (3.5-5.1)
[2021-12-17 08:11] LABS: GLUCOMETER DEV NAME(LOC) 5N.1C; GLUCOSE,POINT OF CARE 164 MG/DL (70-110)
[2021-12-17 08:21] VITALS: BP 129/77
[2021-12-17] MEDS: CHOLECALCIFEROL (VIT D3) 5,000 [125 MCG] UNITS CAPSULE PO SCH (08:59)
[2021-12-17] MEDS: FAMOTIDINE 20 MG TABLET PO SCH (08:59)
[2021-12-17] MEDS: LOSARTAN POTASSIUM 25 MG TABLET PO SCH (08:59)
[2021-12-17] MEDS: DOCUSATE SODIUM 100 MG/10 ML LIQUID UDCUP PO SCH ×2 (08:59→20:17)
[2021-12-17] MEDS: OxyCODONE HCL/ACETAMINOPHEN 5-325 MG TABLET PO PRN ×2 (09:03→20:16)
[2021-12-17 12:23] VITALS: BP 128/80
[2021-12-17 15:36] VITALS: BP 129/80
[2021-12-17 16:16] LABS: GLUCOMETER DEV NAME(LOC) 5N.1C; GLUCOSE,POINT OF CARE 137 MG/DL (70-110)
[2021-12-17] MEDS: DiphenhydrAMINE HCL 50 MG/ML VIAL IVP PRN (20:16)
[2021-12-17 20:17] VITALS: BP 138/77
[2021-12-18 00:32] VITALS: BP 128/79
[2021-12-18] MEDS: NAFCILLIN SODIUM 2 GM in DEXTROSE 5%-WATER 100 ML IV SCH ×6 (03:47→23:33)
[2021-12-18 05:28] VITALS: BP 132/73
[2021-12-18 05:46] LABS: GLUCOMETER DEV NAME(LOC) 5N.1C; GLUCOSE,POINT OF CARE 129 MG/DL (70-110)
[2021-12-18 05:46] LABS: GLUCOMETER DEV NAME(LOC) 5N.1C; GLUCOSE,POINT OF CARE 149 MG/DL (70-110)
[2021-12-18 06:26] LABS: GLUCOMETER DEV NAME(LOC) 5N.3; GLUCOSE,POINT OF CARE 161 MG/DL (70-110)
[2021-12-18 07:23] VITALS: BP 137/82
[2021-12-18 07:36] LABS: BASOPHILS % (AUTO) 0.6 % (0.0-2.0); EOSINOPHILS % (AUTO) 3.6 % (1.0-6.0); HEMATOCRIT 28.3 % (41-53); HEMOGLOBIN 9.8 g/dL (13.5-17.5); LYMPHOCYTES # (AUTO) 0.9 K/uL (1.0-4.8); LYMPHOCYTES % (AUTO) 11.6 % (22.0-44.0); MEAN CORPUSCULAR HEMOGLOBIN 30.6 pg (26.0-34.0); MEAN CORPUSCULAR HGB CONC 34.6 G/dL (31.0-37.0); MEAN CORPUSCULAR VOLUME 88 fL (80-100); MONOCYTES # (AUTO) 0.7 K/uL (0.1-1.0); MONOCYTES % (AUTO) 8.8 % (2.0-9.0); NEUTROPHILS % (AUTO) 75.4 % (40.0-70.0); PLATELET COUNT (AUTO) 321 K/uL (150-450); RED CELL DISTRIBUTION WIDTH 14.7 % (11.5-14.5)
[2021-12-18 07:56] LABS: ALANINE AMINOTRANSFERASE 8 U/L (12-78); ALBUMIN 1.2 g/dL (3.4-5.0); ALKALINE PHOSPHATASE 75 U/L (46-116); ANION GAP 6 mmol/L (8-16); ASPARTATE AMINOTRANSFERASE 13 U/L (15-37); BILIRUBIN,TOTAL 0.9 mg/dL (0.1-1.0); CARBON DIOXIDE 25 mmol/L (22-29); CHLORIDE 109 mmol/L (98-107); CREATININE 1.04 mg/dL (0.60-1.30); GLOMERULAR FILTR. RATE CALC > 60 mL/min (>60); GLUCOSE,RANDOM 136 mg/dL (70-110); POTASSIUM 3.1 mmol/L (3.5-5.1); SODIUM SERUM 140 mmol/L (136-145); TOTAL PROTEIN, SERUM 5.9 g/dL (6.4-8.2); UREA NITROGEN, BLOOD 23 mg/dL (7-18)
[2021-12-18] MEDS: POTASSIUM CHL 10 MEQ/WATER 50 ML IV PRN ×6 (08:54→20:23)
[2021-12-18] MEDS: HYDROmorphone 2 MG/ML VIAL IVP PRN ×2 (09:24→18:24)
[2021-12-18] MEDS: LOSARTAN POTASSIUM 25 MG TABLET PO SCH (09:25)
[2021-12-18] MEDS: CHOLECALCIFEROL (VIT D3) 5,000 [125 MCG] UNITS CAPSULE PO SCH (09:25)
[2021-12-18] MEDS: FAMOTIDINE 20 MG TABLET PO SCH (09:25)
[2021-12-18] MEDS: DOCUSATE SODIUM 100 MG/10 ML LIQUID UDCUP PO SCH ×2 (09:25→20:25)
[2021-12-18 11:24] VITALS: BP 142/82
[2021-12-18] MEDS: INSULIN LISPRO 100 UNITS/ML SQ PRN (12:44)
[2021-12-18 15:34] VITALS: BP 131/79
[2021-12-18 18:01] LABS: GLUCOMETER DEV NAME(LOC) 5N.1C; GLUCOSE,POINT OF CARE 107 MG/DL (70-110)
[2021-12-18 20:22] VITALS: BP 141/84
[2021-12-18] MEDS: DiphenhydrAMINE HCL 50 MG/ML VIAL IVP PRN (20:23)
[2021-12-18] MEDS: OxyCODONE HCL/ACETAMINOPHEN 5-325 MG TABLET PO PRN (20:24)
[2021-12-18] MEDS: ZOLPIDEM TARTRATE 5 MG TABLET PO PRN (20:24)
[2021-12-18 21:26] LABS: GLUCOMETER DEV NAME(LOC) 5N.3; GLUCOSE,POINT OF CARE 100 MG/DL (70-110)
[2021-12-18 21:26] LABS: GLUCOMETER DEV NAME(LOC) 5N.3; GLUCOSE,POINT OF CARE 149 MG/DL (70-110)
[2021-12-19 00:14] VITALS: BP 137/84
[2021-12-19] MEDS: NAFCILLIN SODIUM 2 GM in DEXTROSE 5%-WATER 100 ML IV SCH ×5 (03:43→20:26)
[2021-12-19 04:00] VITALS: BP 130/91
[2021-12-19] MEDS: POTASSIUM CHL 10 MEQ/WATER 50 ML IV PRN ×3 (05:00→08:13)
[2021-12-19 06:50] LABS: BASOPHILS % (AUTO) 0.7 % (0.0-2.0); EOSINOPHILS % (AUTO) 2.1 % (1.0-6.0); HEMATOCRIT 27.8 % (41-53); HEMOGLOBIN 9.8 g/dL (13.5-17.5); LYMPHOCYTES % (AUTO) 12.4 % (22.0-44.0); MEAN CORPUSCULAR HEMOGLOBIN 30.9 pg (26.0-34.0); MEAN CORPUSCULAR HGB CONC 35.4 G/dL (31.0-37.0); MEAN CORPUSCULAR VOLUME 87 fL (80-100); MONOCYTES # (AUTO) 0.7 K/uL (0.1-1.0); MONOCYTES % (AUTO) 8.8 % (2.0-9.0); NEUTROPHILS # (AUTO) 6.3 K/uL (1.8-7.7); PLATELET COUNT (AUTO) 320 K/uL (150-450); RED BLOOD CELL COUNT(AUTO) 3.18 MIL/uL (4.50-5.90); RED CELL DISTRIBUTION WIDTH 14.1 % (11.5-14.5)
[2021-12-19 07:13] LABS: ALANINE AMINOTRANSFERASE 7 U/L (12-78); ALBUMIN 1.3 g/dL (3.4-5.0); ALKALINE PHOSPHATASE 77 U/L (46-116); ANION GAP 4 mmol/L (8-16); ASPARTATE AMINOTRANSFERASE 13 U/L (15-37); BILIRUBIN,TOTAL 1.1 mg/dL (0.1-1.0); CALCIUM, TOTAL 8.2 mg/dL (8.8-10.5); CARBON DIOXIDE 26 mmol/L (22-29); CHLORIDE 107 mmol/L (98-107); CREATININE 0.89 mg/dL (0.60-1.30); GLOMERULAR FILTR. RATE CALC > 60 mL/min (>60); GLUCOSE,RANDOM 123 mg/dL (70-110); POTASSIUM 3.4 mmol/L (3.5-5.1); SODIUM SERUM 137 mmol/L (136-145); TOTAL PROTEIN, SERUM 6.3 g/dL (6.4-8.2); UREA NITROGEN, BLOOD 15 mg/dL (7-18)
[2021-12-19] MEDS: LOSARTAN POTASSIUM 25 MG TABLET PO SCH (08:02)
[2021-12-19] MEDS: CHOLECALCIFEROL (VIT D3) 5,000 [125 MCG] UNITS CAPSULE PO SCH (08:02)
[2021-12-19] MEDS: FAMOTIDINE 20 MG TABLET PO SCH (08:02)
[2021-12-19] MEDS: DOCUSATE SODIUM 100 MG/10 ML LIQUID UDCUP PO SCH ×2 (08:02→20:27)
[2021-12-19] MEDS ORDERED: SODIUM CHLORIDE 0.9% 250 ML IV ONE (08:17)
[2021-12-19 08:20] VITALS: BP 141/87
[2021-12-19] MEDS ORDERED: LOPERAMIDE HCL 2 MG CAPSULE PO ONE (12:00)
[2021-12-19] MEDS ORDERED: LOPERAMIDE HCL 2 MG CAPSULE PO PRN (12:00)
[2021-12-19 12:06] VITALS: BP 143/86
[2021-12-19] MEDS: INSULIN LISPRO 100 UNITS/ML SQ PRN (12:30)
[2021-12-19] MEDS: OxyCODONE HCL/ACETAMINOPHEN 5-325 MG TABLET PO PRN (12:48)
[2021-12-19] MEDS: POTASSIUM CHLORIDE 20 MEQ ER TABLET PO PRN ×2 (16:08→21:49)
[2021-12-19 16:09] VITALS: BP 123/71
[2021-12-19 16:42] LABS: GLUCOMETER DEV NAME(LOC) 5N.1C; GLUCOSE,POINT OF CARE 107 MG/DL (70-110)
[2021-12-19 16:42] LABS: GLUCOMETER DEV NAME(LOC) 5N.1C; GLUCOSE,POINT OF CARE 156 MG/DL (70-110)
[2021-12-19 17:36] LABS: GLUCOMETER DEV NAME(LOC) 5N.1C; GLUCOSE,POINT OF CARE 128 MG/DL (70-110)
[2021-12-19 23:14] VITALS: BP 131/73
[2021-12-20] VITALS (7 sets, daily range): BP systolic 126–142; BP diastolic 71–84
[2021-12-20] MEDS: NAFCILLIN SODIUM 2 GM in DEXTROSE 5%-WATER 100 ML IV SCH ×6 (00:14→21:22)
[2021-12-20] MEDS: POTASSIUM CHLORIDE 20 MEQ ER TABLET PO PRN (02:49)
[2021-12-20 05:16] LABS: GLUCOMETER DEV NAME(LOC) 5N.1C; GLUCOSE,POINT OF CARE 126 MG/DL (70-110)
[2021-12-20 07:22] LABS: BASOPHILS % (AUTO) 0.7 % (0.0-2.0); EOSINOPHILS % (AUTO) 3.3 % (1.0-6.0); HEMATOCRIT 24.2 % (41-53); HEMOGLOBIN 8.4 g/dL (13.5-17.5); LYMPHOCYTES # (AUTO) 1.1 K/uL (1.0-4.8); LYMPHOCYTES % (AUTO) 14.5 % (22.0-44.0); MEAN CORPUSCULAR HEMOGLOBIN 30.7 pg (26.0-34.0); MEAN CORPUSCULAR HGB CONC 34.9 G/dL (31.0-37.0); MEAN CORPUSCULAR VOLUME 88 fL (80-100); MONOCYTES # (AUTO) 0.7 K/uL (0.1-1.0); MONOCYTES % (AUTO) 9.5 % (2.0-9.0); NEUTROPHILS # (AUTO) 5.3 K/uL (1.8-7.7); PLATELET COUNT (AUTO) 265 K/uL (150-450); RED BLOOD CELL COUNT(AUTO) 2.75 MIL/uL (4.50-5.90); RED CELL DISTRIBUTION WIDTH 14.1 % (11.5-14.5)
[2021-12-20 07:38] LABS: ALANINE AMINOTRANSFERASE 9 U/L (12-78); ALBUMIN 1.2 g/dL (3.4-5.0); ALKALINE PHOSPHATASE 67 U/L (46-116); ANION GAP 6 mmol/L (8-16); ASPARTATE AMINOTRANSFERASE 13 U/L (15-37); CALCIUM, TOTAL 7.8 mg/dL (8.8-10.5); CARBON DIOXIDE 25 mmol/L (22-29); CHLORIDE 105 mmol/L (98-107); CREATININE 0.91 mg/dL (0.60-1.30); GLOMERULAR FILTR. RATE CALC > 60 mL/min (>60); GLUCOSE,RANDOM 120 mg/dL (70-110); POTASSIUM 3.4 mmol/L (3.5-5.1); SODIUM SERUM 136 mmol/L (136-145); TOTAL PROTEIN, SERUM 5.8 g/dL (6.4-8.2); UREA NITROGEN, BLOOD 13 mg/dL (7-18)
[2021-12-20] MEDS: FAMOTIDINE 20 MG TABLET PO SCH (07:55)
[2021-12-20] MEDS: CHOLECALCIFEROL (VIT D3) 5,000 [125 MCG] UNITS CAPSULE PO SCH (07:55)
[2021-12-20] MEDS: LOSARTAN POTASSIUM 25 MG TABLET PO SCH (07:55)
[2021-12-20] MEDS: POTASSIUM CHL 10 MEQ/WATER 50 ML IV PRN ×3 (08:10→10:39)
[2021-12-20] MEDS: DOCUSATE SODIUM 100 MG/10 ML LIQUID UDCUP PO SCH ×2 (09:00→20:12)
[2021-12-20] MEDS: INSULIN LISPRO 100 UNITS/ML SQ PRN ×2 (11:44→17:54)
[2021-12-20] MEDS ORDERED: SODIUM CHLORIDE 0.9% 250 ML IV ONE (11:49)
[2021-12-20 12:01] LABS: GLUCOMETER DEV NAME(LOC) 5N.1C; GLUCOSE,POINT OF CARE 117 MG/DL (70-110)
[2021-12-20 12:26] LABS: GLUCOMETER DEV NAME(LOC) 5N.3; GLUCOSE,POINT OF CARE 142 MG/DL (70-110)
[2021-12-20 17:56] LABS: GLUCOMETER DEV NAME(LOC) 5N.3; GLUCOSE,POINT OF CARE 167 MG/DL (70-110)
[2021-12-20] MEDS: OxyCODONE HCL/ACETAMINOPHEN 5-325 MG TABLET PO PRN (21:39)
[2021-12-20 21:56] LABS: GLUCOMETER DEV NAME(LOC) 5S.2B; GLUCOSE,POINT OF CARE 131 MG/DL (70-110)
[2021-12-21] VITALS (7 sets, daily range): BP systolic 127–158; BP diastolic 72–100
[2021-12-21] MEDS: ZOLPIDEM TARTRATE 5 MG TABLET PO PRN (00:53)
[2021-12-21] MEDS: NAFCILLIN SODIUM 2 GM in DEXTROSE 5%-WATER 100 ML IV SCH ×7 (01:04→23:37)
[2021-12-21 06:42] LABS: GLUCOMETER DEV NAME(LOC) 5N.3; GLUCOSE,POINT OF CARE 117 MG/DL (70-110)
[2021-12-21 07:05] LABS: HEMOGLOBIN 8.2 g/dL (13.5-17.5); LYMPHOCYTES # (AUTO) 1.3 K/uL (1.0-4.8); MONOCYTES # (AUTO) 0.7 K/uL (0.1-1.0); NEUTROPHILS # (AUTO) 4.5 K/uL (1.8-7.7)
[2021-12-21 07:15] LABS: BASOPHILS % (AUTO) 0.8 % (0.0-2.0); EOSINOPHILS % (AUTO) 4.1 % (1.0-6.0); HEMATOCRIT 23.8 % (41-53); LYMPHOCYTES % (AUTO) 18.9 % (22.0-44.0); MEAN CORPUSCULAR HEMOGLOBIN 30.2 pg (26.0-34.0); MEAN CORPUSCULAR HGB CONC 34.6 G/dL (31.0-37.0); MEAN CORPUSCULAR VOLUME 87 fL (80-100); MONOCYTES % (AUTO) 10.2 % (2.0-9.0); PLATELET COUNT (AUTO) 258 K/uL (150-450); RED BLOOD CELL COUNT(AUTO) 2.73 MIL/uL (4.50-5.90); RED CELL DISTRIBUTION WIDTH 14.6 % (11.5-14.5)
[2021-12-21 07:38] LABS: ALBUMIN 1.2 g/dL (3.4-5.0); ALKALINE PHOSPHATASE 68 U/L (46-116); ANION GAP 5 mmol/L (8-16); ASPARTATE AMINOTRANSFERASE 14 U/L (15-37); BILIRUBIN,TOTAL 0.8 mg/dL (0.1-1.0); CALCIUM, TOTAL 7.9 mg/dL (8.8-10.5); CARBON DIOXIDE 25 mmol/L (22-29); CHLORIDE 106 mmol/L (98-107); CREATININE 0.96 mg/dL (0.60-1.30); GLOMERULAR FILTR. RATE CALC > 60 mL/min (>60); GLUCOSE,RANDOM 123 mg/dL (70-110); POTASSIUM 3.2 mmol/L (3.5-5.1); SODIUM SERUM 136 mmol/L (136-145); TOTAL PROTEIN, SERUM 5.9 g/dL (6.4-8.2); UREA NITROGEN, BLOOD 12 mg/dL (7-18)
[2021-12-21 08:08] LABS: ALANINE AMINOTRANSFERASE 9 U/L (12-78)
[2021-12-21] MEDS: LOSARTAN POTASSIUM 25 MG TABLET PO SCH (08:13)
[2021-12-21] MEDS: FAMOTIDINE 20 MG TABLET PO SCH (08:14)
[2021-12-21] MEDS: CHOLECALCIFEROL (VIT D3) 5,000 [125 MCG] UNITS CAPSULE PO SCH (08:14)
[2021-12-21] MEDS: DOCUSATE SODIUM 100 MG/10 ML LIQUID UDCUP PO SCH ×2 (08:15→20:11)
[2021-12-21] MEDS: POTASSIUM CHL 10 MEQ/WATER 50 ML IV PRN ×3 (09:12→12:04)
[2021-12-21] MEDS ORDERED: SODIUM CHLORIDE 0.9% 250 ML IV ONE (09:16)
[2021-12-21] MEDS: INSULIN LISPRO 100 UNITS/ML SQ PRN (11:49)
[2021-12-21] MEDS: HYDROmorphone 2 MG/ML VIAL IVP PRN ×2 (12:07→20:00)
[2021-12-21 12:21] LABS: GLUCOMETER DEV NAME(LOC) 5S.2B; GLUCOSE,POINT OF CARE 162 MG/DL (70-110)
[2021-12-21 17:47] LABS: GLUCOMETER DEV NAME(LOC) 5N.3; GLUCOSE,POINT OF CARE 111 MG/DL (70-110)
[2021-12-21 22:26] LABS: GLUCOMETER DEV NAME(LOC) 5N.3; GLUCOSE,POINT OF CARE 105 MG/DL (70-110)
[2021-12-22 04:00] VITALS: BP 130/71
[2021-12-22] MEDS: NAFCILLIN SODIUM 2 GM in DEXTROSE 5%-WATER 100 ML IV SCH ×6 (04:35→23:39)
[2021-12-22 06:57] LABS: GLUCOMETER DEV NAME(LOC) 5N.3; GLUCOSE,POINT OF CARE 106 MG/DL (70-110)
[2021-12-22 07:30] LABS: HEMOGLOBIN 8.6 g/dL (13.5-17.5); RED BLOOD CELL COUNT(AUTO) 2.79 MIL/uL (4.50-5.90)
[2021-12-22 07:31] LABS: BASOPHILS % (AUTO) 0.8 % (0.0-2.0); EOSINOPHILS % (AUTO) 3.2 % (1.0-6.0); HEMATOCRIT 24.3 % (41-53); LYMPHOCYTES % (AUTO) 15.9 % (22.0-44.0); MEAN CORPUSCULAR HEMOGLOBIN 30.8 pg (26.0-34.0); MEAN CORPUSCULAR HGB CONC 35.4 G/dL (31.0-37.0); MEAN CORPUSCULAR VOLUME 87 fL (80-100); MONOCYTES # (AUTO) 0.5 K/uL (0.1-1.0); MONOCYTES % (AUTO) 8.4 % (2.0-9.0); NEUTROPHILS # (AUTO) 4.5 K/uL (1.8-7.7); NEUTROPHILS % (AUTO) 71.7 % (40.0-70.0); PLATELET COUNT (AUTO) 275 K/uL (150-450); RED CELL DISTRIBUTION WIDTH 14.7 % (11.5-14.5)
[2021-12-22 07:49] LABS: CHLORIDE 103 mmol/L (98-107); POTASSIUM 3.4 mmol/L (3.5-5.1); SODIUM SERUM 138 mmol/L (136-145)
[2021-12-22 07:50] LABS: ALANINE AMINOTRANSFERASE 7 U/L (12-78); ALBUMIN 1.3 g/dL (3.4-5.0); ALKALINE PHOSPHATASE 72 U/L (46-116); ANION GAP 10 mmol/L (8-16); ASPARTATE AMINOTRANSFERASE 13 U/L (15-37); BILIRUBIN,TOTAL 0.9 mg/dL (0.1-1.0); CALCIUM, TOTAL 8.2 mg/dL (8.8-10.5); CARBON DIOXIDE 25 mmol/L (22-29); CREATININE 0.81 mg/dL (0.60-1.30); GLOMERULAR FILTR. RATE CALC > 60 mL/min (>60); GLUCOSE,RANDOM 104 mg/dL (70-110); TOTAL PROTEIN, SERUM 6.3 g/dL (6.4-8.2); UREA NITROGEN, BLOOD 10 mg/dL (7-18)
[2021-12-22 08:04] VITALS: BP 136/85
[2021-12-22] MEDS: FAMOTIDINE 20 MG TABLET PO SCH (08:31)
[2021-12-22] MEDS: CHOLECALCIFEROL (VIT D3) 5,000 [125 MCG] UNITS CAPSULE PO SCH (08:31)
[2021-12-22] MEDS: LOSARTAN POTASSIUM 25 MG TABLET PO SCH (08:31)
[2021-12-22] MEDS: DOCUSATE SODIUM 100 MG/10 ML LIQUID UDCUP PO SCH ×2 (09:00→21:00)
[2021-12-22 11:48] VITALS: BP 149/90
[2021-12-22] MEDS: INSULIN LISPRO 100 UNITS/ML SQ PRN ×2 (12:35→18:02)
[2021-12-22] MEDS: BENZOCAINE/MENTHOL LOZENGE PO PRN ×2 (12:36→15:55)
[2021-12-22 15:34] VITALS: BP 147/83
[2021-12-22] MEDS: POTASSIUM CHLORIDE 20 MEQ ER TABLET PO PRN (15:54)
[2021-12-22] MEDS: HEPARIN SODIUM,PORCINE 5,000 UNITS/ML VIAL SQ SCH ×2 (16:02→23:38)
[2021-12-22 18:21] LABS: GLUCOMETER DEV NAME(LOC) 5S.2B; GLUCOSE,POINT OF CARE 174 MG/DL (70-110)
[2021-12-22 19:30] VITALS: BP 142/78
[2021-12-22 21:01] LABS: GLUCOMETER DEV NAME(LOC) 5S.2B; GLUCOSE,POINT OF CARE 146 MG/DL (70-110)
[2021-12-22] MEDS: ACETAMINOPHEN 325 MG TABLET PO PRN (21:03)
[2021-12-22] MEDS: BENZOCAINE 20% 50 MCG/SPRAY 57 GM TP PRN (23:48)
[2021-12-23 00:32] VITALS: BP 137/76
[2021-12-23] MEDS: NAFCILLIN SODIUM 2 GM in DEXTROSE 5%-WATER 100 ML IV SCH ×6 (03:24→23:18)
[2021-12-23 04:35] VITALS: BP 142/81
[2021-12-23 06:46] LABS: GLUCOMETER DEV NAME(LOC) 5N.3; GLUCOSE,POINT OF CARE 178 MG/DL (70-110)
[2021-12-23 06:47] LABS: GLUCOMETER DEV NAME(LOC) 5S.2B; GLUCOSE,POINT OF CARE 125 MG/DL (70-110)
[2021-12-23] MEDS: FAMOTIDINE 20 MG TABLET PO SCH (08:28)
[2021-12-23] MEDS: LOSARTAN POTASSIUM 25 MG TABLET PO SCH (08:28)
[2021-12-23] MEDS: DOCUSATE SODIUM 100 MG/10 ML LIQUID UDCUP PO SCH ×2 (08:28→19:45)
[2021-12-23] MEDS: CHOLECALCIFEROL (VIT D3) 5,000 [125 MCG] UNITS CAPSULE PO SCH (08:28)
[2021-12-23] MEDS: HEPARIN SODIUM,PORCINE 5,000 UNITS/ML VIAL SQ SCH ×3 (08:28→23:18)
[2021-12-23 08:45] LABS: BASOPHILS % (AUTO) 0.9 % (0.0-2.0); EOSINOPHILS % (AUTO) 3.5 % (1.0-6.0); HEMATOCRIT 25.3 % (41-53); HEMOGLOBIN 8.9 g/dL (13.5-17.5); LYMPHOCYTES # (AUTO) 1.2 K/uL (1.0-4.8); LYMPHOCYTES % (AUTO) 18.4 % (22.0-44.0); MEAN CORPUSCULAR HEMOGLOBIN 30.4 pg (26.0-34.0); MEAN CORPUSCULAR VOLUME 87 fL (80-100); MONOCYTES # (AUTO) 0.6 K/uL (0.1-1.0); NEUTROPHILS # (AUTO) 4.3 K/uL (1.8-7.7); NEUTROPHILS % (AUTO) 68.2 % (40.0-70.0); PLATELET COUNT (AUTO) 296 K/uL (150-450); RED BLOOD CELL COUNT(AUTO) 2.91 MIL/uL (4.50-5.90); RED CELL DISTRIBUTION WIDTH 14.6 % (11.5-14.5)
[2021-12-23 08:58] LABS: ALANINE AMINOTRANSFERASE 8 U/L (12-78); ALBUMIN 1.3 g/dL (3.4-5.0); ALKALINE PHOSPHATASE 72 U/L (46-116); ANION GAP 8 mmol/L (8-16); ASPARTATE AMINOTRANSFERASE 14 U/L (15-37); BILIRUBIN,TOTAL 0.8 mg/dL (0.1-1.0); CALCIUM, TOTAL 7.9 mg/dL (8.8-10.5); CARBON DIOXIDE 26 mmol/L (22-29); CHLORIDE 104 mmol/L (98-107); CREATININE 0.95 mg/dL (0.60-1.30); GLOMERULAR FILTR. RATE CALC > 60 mL/min (>60); GLUCOSE,RANDOM 130 mg/dL (70-110); SODIUM SERUM 138 mmol/L (136-145); TOTAL PROTEIN, SERUM 6.2 g/dL (6.4-8.2); UREA NITROGEN, BLOOD 11 mg/dL (7-18)
[2021-12-23 08:59] LABS: POTASSIUM 2.9 mmol/L (3.5-5.1)
[2021-12-23 09:21] VITALS: BP 154/103
[2021-12-23] MEDS: BENZOCAINE/MENTHOL LOZENGE PO PRN (11:50)
[2021-12-23] MEDS: POTASSIUM CHL 10 MEQ/WATER 50 ML IV PRN ×5 (11:50→22:34)
[2021-12-23] MEDS: INSULIN LISPRO 100 UNITS/ML SQ PRN ×2 (13:06→20:08)
[2021-12-23 13:35] VITALS: BP 129/79
[2021-12-23] MEDS ORDERED: SODIUM CHLORIDE 0.9% 500 ML IV ONE (13:59)
[2021-12-23 17:57] LABS: GLUCOMETER DEV NAME(LOC) 5N.3; GLUCOSE,POINT OF CARE 135 MG/DL (70-110)
[2021-12-23 17:57] LABS: GLUCOMETER DEV NAME(LOC) 5N.3; GLUCOSE,POINT OF CARE 157 MG/DL (70-110)
[2021-12-23 18:53] LABS: ANION GAP 7 mmol/L (8-16); CARBON DIOXIDE 27 mmol/L (22-29); CHLORIDE 104 mmol/L (98-107); CREATININE 0.94 mg/dL (0.60-1.30); GLOMERULAR FILTR. RATE CALC > 60 mL/min (>60); GLUCOSE,RANDOM 169 mg/dL (70-110); POTASSIUM 3.4 mmol/L (3.5-5.1); SODIUM SERUM 138 mmol/L (136-145); UREA NITROGEN, BLOOD 10 mg/dL (7-18)
[2021-12-23 18:59] LABS: ALANINE AMINOTRANSFERASE 7 U/L (12-78); ALBUMIN 1.4 g/dL (3.4-5.0); ALKALINE PHOSPHATASE 83 U/L (46-116); ASPARTATE AMINOTRANSFERASE 14 U/L (15-37); BILIRUBIN,TOTAL 0.8 mg/dL (0.1-1.0); TOTAL PROTEIN, SERUM 6.5 g/dL (6.4-8.2)
[2021-12-23 19:44] VITALS: BP 153/99
[2021-12-23] MEDS: BENZOCAINE 20% 50 MCG/SPRAY 57 GM TP PRN (20:02)
[2021-12-24 00:29] VITALS: BP 129/85
[2021-12-24 00:56] LABS: GLUCOMETER DEV NAME(LOC) 5S.2B; GLUCOSE,POINT OF CARE 169 MG/DL (70-110)
[2021-12-24] MEDS: POTASSIUM CHL 10 MEQ/WATER 50 ML IV PRN ×3 (01:37→03:40)
[2021-12-24] MEDS: NAFCILLIN SODIUM 2 GM in DEXTROSE 5%-WATER 100 ML IV SCH ×5 (03:39→21:17)
[2021-12-24 04:15] VITALS: BP 136/85
[2021-12-24 06:21] LABS: GLUCOMETER DEV NAME(LOC) 5S.2B; GLUCOSE,POINT OF CARE 97 MG/DL (70-110)
[2021-12-24 06:37] LABS: BASOPHILS % (AUTO) 1.1 % (0.0-2.0); EOSINOPHILS % (AUTO) 4.6 % (1.0-6.0); HEMATOCRIT 27.4 % (41-53); HEMOGLOBIN 9.9 g/dL (13.5-17.5); LYMPHOCYTES # (AUTO) 1.2 K/uL (1.0-4.8); MEAN CORPUSCULAR HEMOGLOBIN 31.1 pg (26.0-34.0); MEAN CORPUSCULAR VOLUME 86 fL (80-100); MONOCYTES # (AUTO) 0.4 K/uL (0.1-1.0); MONOCYTES % (AUTO) 7.1 % (2.0-9.0); NEUTROPHILS # (AUTO) 4.1 K/uL (1.8-7.7); NEUTROPHILS % (AUTO) 67.2 % (40.0-70.0); PLATELET COUNT (AUTO) 305 K/uL (150-450); RED BLOOD CELL COUNT(AUTO) 3.18 MIL/uL (4.50-5.90); RED CELL DISTRIBUTION WIDTH 14.5 % (11.5-14.5)
[2021-12-24 06:46] LABS: ALANINE AMINOTRANSFERASE 5 U/L (12-78); ALBUMIN 1.4 g/dL (3.4-5.0); ALKALINE PHOSPHATASE 79 U/L (46-116); ANION GAP 10 mmol/L (8-16); ASPARTATE AMINOTRANSFERASE 14 U/L (15-37); BILIRUBIN,TOTAL 0.9 mg/dL (0.1-1.0); CALCIUM, TOTAL 8.2 mg/dL (8.8-10.5); CARBON DIOXIDE 27 mmol/L (22-29); CHLORIDE 103 mmol/L (98-107); CREATININE 0.83 mg/dL (0.60-1.30); GLOMERULAR FILTR. RATE CALC > 60 mL/min (>60); GLUCOSE,RANDOM 111 mg/dL (70-110); POTASSIUM 3.7 mmol/L (3.5-5.1); SODIUM SERUM 140 mmol/L (136-145); TOTAL PROTEIN, SERUM 6.7 g/dL (6.4-8.2); UREA NITROGEN, BLOOD 9 mg/dL (7-18)
[2021-12-24 09:28] VITALS: BP 146/103
[2021-12-24] MEDS: FAMOTIDINE 20 MG TABLET PO SCH (09:30)
[2021-12-24] MEDS: DOCUSATE SODIUM 100 MG/10 ML LIQUID UDCUP PO SCH ×2 (09:30→21:17)
[2021-12-24] MEDS: CHOLECALCIFEROL (VIT D3) 5,000 [125 MCG] UNITS CAPSULE PO SCH (09:30)
[2021-12-24] MEDS: LOSARTAN POTASSIUM 25 MG TABLET PO SCH (09:30)
[2021-12-24] MEDS: HEPARIN SODIUM,PORCINE 5,000 UNITS/ML VIAL SQ SCH ×2 (09:30→16:02)
[2021-12-24 16:06] VITALS: BP 148/95
[2021-12-24 20:05] VITALS: BP 136/89
[2021-12-24 20:11] LABS: GLUCOMETER DEV NAME(LOC) 5S.2B; GLUCOSE,POINT OF CARE 127 MG/DL (70-110)
[2021-12-24] MEDS: INSULIN LISPRO 100 UNITS/ML SQ PRN (21:18)
[2021-12-24] MEDS ORDERED: SODIUM CHLORIDE 0.9% 500 ML IV ONE (21:34)
[2021-12-24 23:31] LABS: GLUCOMETER DEV NAME(LOC) 6N.1; GLUCOSE,POINT OF CARE 156 MG/DL (70-110)
[2021-12-25] MEDS: NAFCILLIN SODIUM 2 GM in DEXTROSE 5%-WATER 100 ML IV SCH ×6 (00:31→20:15)
[2021-12-25] MEDS: HEPARIN SODIUM,PORCINE 5,000 UNITS/ML VIAL SQ SCH ×3 (00:32→16:48)
[2021-12-25 04:36] VITALS: BP 138/100
[2021-12-25 05:55] LABS: EOSINOPHILS % (AUTO) 3.8 % (1.0-6.0); HEMATOCRIT 24.5 % (41-53); HEMOGLOBIN 8.9 g/dL (13.5-17.5); LYMPHOCYTES # (AUTO) 1.2 K/uL (1.0-4.8); LYMPHOCYTES % (AUTO) 24.2 % (22.0-44.0); MEAN CORPUSCULAR HEMOGLOBIN 31.2 pg (26.0-34.0); MEAN CORPUSCULAR HGB CONC 36.4 G/dL (31.0-37.0); MEAN CORPUSCULAR VOLUME 86 fL (80-100); MONOCYTES # (AUTO) 0.4 K/uL (0.1-1.0); MONOCYTES % (AUTO) 7.8 % (2.0-9.0); NEUTROPHILS # (AUTO) 3.3 K/uL (1.8-7.7); NEUTROPHILS % (AUTO) 63.2 % (40.0-70.0); PLATELET COUNT (AUTO) 272 K/uL (150-450); RED BLOOD CELL COUNT(AUTO) 2.85 MIL/uL (4.50-5.90); RED CELL DISTRIBUTION WIDTH 14.9 % (11.5-14.5)
[2021-12-25 06:08] LABS: ALANINE AMINOTRANSFERASE 7 U/L (12-78); ALBUMIN 1.4 g/dL (3.4-5.0); ALKALINE PHOSPHATASE 73 U/L (46-116); ANION GAP 6 mmol/L (8-16); ASPARTATE AMINOTRANSFERASE 14 U/L (15-37); BILIRUBIN,TOTAL 0.9 mg/dL (0.1-1.0); C-REACTIVE PROTEIN QUANT 7.03 mg/dL (0.00-0.30); CALCIUM, TOTAL 8.2 mg/dL (8.8-10.5); CARBON DIOXIDE 28 mmol/L (22-29); CHLORIDE 104 mmol/L (98-107); CREATININE 0.84 mg/dL (0.60-1.30); GLOMERULAR FILTR. RATE CALC > 60 mL/min (>60); GLUCOSE,RANDOM 133 mg/dL (70-110); POTASSIUM 3.1 mmol/L (3.5-5.1); SODIUM SERUM 138 mmol/L (136-145); TOTAL PROTEIN, SERUM 6.2 g/dL (6.4-8.2); UREA NITROGEN, BLOOD 10 mg/dL (7-18)
[2021-12-25 07:07] LABS: GLUCOMETER DEV NAME(LOC) 6N.1; GLUCOSE,POINT OF CARE 127 MG/DL (70-110)
[2021-12-25 08:00] VITALS: BP 14/88
[2021-12-25] MEDS: CHOLECALCIFEROL (VIT D3) 5,000 [125 MCG] UNITS CAPSULE PO SCH (08:33)
[2021-12-25] MEDS: FAMOTIDINE 20 MG TABLET PO SCH (08:33)
[2021-12-25] MEDS: MULTIVITAMINS, THERAPEUTIC TABLET PO SCH (08:33)
[2021-12-25] MEDS: LOSARTAN POTASSIUM 25 MG TABLET PO SCH (08:33)
[2021-12-25] MEDS: DOCUSATE SODIUM 100 MG/10 ML LIQUID UDCUP PO SCH ×2 (08:34→21:00)
[2021-12-25] MEDS: POTASSIUM CHL 10 MEQ/WATER 50 ML IV PRN ×3 (08:46→14:30)
[2021-12-25] MEDS: HYDROmorphone 2 MG/ML VIAL IVP PRN (11:01)
[2021-12-25] MEDS: INSULIN LISPRO 100 UNITS/ML SQ PRN ×3 (12:03→20:15)
[2021-12-25 16:00] VITALS: BP 149/94
[2021-12-25 17:36] LABS: GLUCOMETER DEV NAME(LOC) 4E.2; GLUCOSE,POINT OF CARE 152 MG/DL (70-110)
[2021-12-25 20:01] VITALS: BP 145/89
[2021-12-25 20:01] LABS: GLUCOMETER DEV NAME(LOC) 6N.2; GLUCOSE,POINT OF CARE 152 MG/DL (70-110)
[2021-12-25] MEDS: ACETAMINOPHEN 325 MG TABLET PO PRN (20:16)
[2021-12-25] MEDS: POTASSIUM CHLORIDE 20 MEQ ER TABLET PO PRN (22:26)
[2021-12-26] MEDS: NAFCILLIN SODIUM 2 GM in DEXTROSE 5%-WATER 100 ML IV SCH ×7 (01:19→23:13)
[2021-12-26] MEDS: HEPARIN SODIUM,PORCINE 5,000 UNITS/ML VIAL SQ SCH ×4 (01:19→23:12)
[2021-12-26 04:38] VITALS: BP 123/86
[2021-12-26 06:12] LABS: GLUCOMETER DEV NAME(LOC) 4E.2; GLUCOSE,POINT OF CARE 172 MG/DL (70-110)
[2021-12-26 07:06] LABS: GLUCOMETER DEV NAME(LOC) 6N.2; GLUCOSE,POINT OF CARE 140 MG/DL (70-110)
[2021-12-26 07:36] VITALS: BP 127/89
[2021-12-26] MEDS: FAMOTIDINE 20 MG TABLET PO SCH (08:25)
[2021-12-26] MEDS: CHOLECALCIFEROL (VIT D3) 5,000 [125 MCG] UNITS CAPSULE PO SCH (08:25)
[2021-12-26] MEDS: POTASSIUM CHLORIDE 20 MEQ ER TABLET PO PRN (08:25)
[2021-12-26] MEDS: LOSARTAN POTASSIUM 25 MG TABLET PO SCH (08:25)
[2021-12-26] MEDS: MULTIVITAMINS, THERAPEUTIC TABLET PO SCH (08:25)
[2021-12-26] MEDS: DOCUSATE SODIUM 100 MG/10 ML LIQUID UDCUP PO SCH ×2 (08:27→20:33)
[2021-12-26] MEDS: OxyCODONE HCL/ACETAMINOPHEN 5-325 MG TABLET PO PRN (08:35)
[2021-12-26 15:51] VITALS: BP 147/94
[2021-12-26] MEDS: INSULIN LISPRO 100 UNITS/ML SQ PRN ×2 (17:54→20:32)
[2021-12-26 17:56] LABS: GLUCOMETER DEV NAME(LOC) 6N.1; GLUCOSE,POINT OF CARE 143 MG/DL (70-110)
[2021-12-26 17:56] LABS: GLUCOMETER DEV NAME(LOC) 4E.2; GLUCOSE,POINT OF CARE 130 MG/DL (70-110)
[2021-12-26 19:50] VITALS: BP 154/89
[2021-12-27 04:01] VITALS: BP 143/87
[2021-12-27] MEDS: NAFCILLIN SODIUM 2 GM in DEXTROSE 5%-WATER 100 ML IV SCH ×5 (04:14→20:09)
[2021-12-27] MEDS: INSULIN LISPRO 100 UNITS/ML SQ PRN ×4 (05:50→20:15)
[2021-12-27 06:46] LABS: GLUCOMETER DEV NAME(LOC) 4E.2; GLUCOSE,POINT OF CARE 162 MG/DL (70-110)
[2021-12-27 07:31] VITALS: BP 127/81
[2021-12-27] MEDS: LOSARTAN POTASSIUM 25 MG TABLET PO SCH (08:06)
[2021-12-27] MEDS: FAMOTIDINE 20 MG TABLET PO SCH (08:06)
[2021-12-27] MEDS: CHOLECALCIFEROL (VIT D3) 5,000 [125 MCG] UNITS CAPSULE PO SCH (08:06)
[2021-12-27] MEDS: MULTIVITAMINS, THERAPEUTIC TABLET PO SCH (08:06)
[2021-12-27] MEDS: HEPARIN SODIUM,PORCINE 5,000 UNITS/ML VIAL SQ SCH ×2 (08:07→16:22)
[2021-12-27] MEDS: DOCUSATE SODIUM 100 MG/10 ML LIQUID UDCUP PO SCH ×2 (08:16→20:10)
[2021-12-27] MEDS ORDERED: SODIUM CHLORIDE 0.9% 250 ML IV ONE (11:49)
[2021-12-27 14:31] LABS: GLUCOMETER DEV NAME(LOC) 6N.1; GLUCOSE,POINT OF CARE 159 MG/DL (70-110)
[2021-12-27 14:46] LABS: GLUCOMETER DEV NAME(LOC) 6N.2; GLUCOSE,POINT OF CARE 168 MG/DL (70-110)
[2021-12-27 15:47] VITALS: BP 148/91
[2021-12-27 19:31] LABS: GLUCOMETER DEV NAME(LOC) 6N.1; GLUCOSE,POINT OF CARE 159 MG/DL (70-110)
[2021-12-27 19:43] VITALS: BP 136/91
[2021-12-28] MEDS: NAFCILLIN SODIUM 2 GM in DEXTROSE 5%-WATER 100 ML IV SCH ×6 (00:24→21:27)
[2021-12-28] MEDS: HEPARIN SODIUM,PORCINE 5,000 UNITS/ML VIAL SQ SCH ×3 (00:25→17:58)
[2021-12-28 04:36] VITALS: BP 129/82
[2021-12-28] MEDS: INSULIN LISPRO 100 UNITS/ML SQ PRN ×3 (06:24→17:54)
[2021-12-28 06:41] LABS: GLUCOMETER DEV NAME(LOC) 6N.2; GLUCOSE,POINT OF CARE 165 MG/DL (70-110)
[2021-12-28 06:41] LABS: GLUCOMETER DEV NAME(LOC) 4E.2; GLUCOSE,POINT OF CARE 173 MG/DL (70-110)
[2021-12-28 07:28] VITALS: BP 138/92
[2021-12-28] MEDS: FAMOTIDINE 20 MG TABLET PO SCH (08:07)
[2021-12-28] MEDS: CHOLECALCIFEROL (VIT D3) 5,000 [125 MCG] UNITS CAPSULE PO SCH (08:07)
[2021-12-28] MEDS: MULTIVITAMINS, THERAPEUTIC TABLET PO SCH (08:07)
[2021-12-28] MEDS: LOSARTAN POTASSIUM 25 MG TABLET PO SCH (08:08)
[2021-12-28] MEDS: DOCUSATE SODIUM 100 MG/10 ML LIQUID UDCUP PO SCH ×2 (09:00→21:00)
[2021-12-28] MEDS: HYDROmorphone 2 MG/ML VIAL IVP PRN (10:29)
[2021-12-28 16:00] VITALS: BP 150/90
[2021-12-28 19:36] LABS: GLUCOMETER DEV NAME(LOC) 4E.2; GLUCOSE,POINT OF CARE 205 MG/DL (70-110)
[2021-12-28 19:45] LABS: GLUCOMETER DEV NAME(LOC) 6N.2; GLUCOSE,POINT OF CARE 141 MG/DL (70-110)
[2021-12-28 20:37] VITALS: BP 140/81
[2021-12-29] VITALS: BP 123/80
[2021-12-29] MEDS: HEPARIN SODIUM,PORCINE 5,000 UNITS/ML VIAL SQ SCH ×3 (00:38→15:18)
[2021-12-29] MEDS: HYDROmorphone 2 MG/ML VIAL IVP PRN (00:39)
[2021-12-29] MEDS: NAFCILLIN SODIUM 2 GM in DEXTROSE 5%-WATER 100 ML IV SCH ×6 (00:39→21:56)
[2021-12-29] MEDS: INSULIN LISPRO 100 UNITS/ML SQ PRN ×3 (03:17→17:05)
[2021-12-29 03:26] LABS: GLUCOMETER DEV NAME(LOC) 6N.2; GLUCOSE,POINT OF CARE 164 MG/DL (70-110)
[2021-12-29 06:56] LABS: CALCIUM, TOTAL 8.3 mg/dL (8.8-10.5); CHLORIDE 104 mmol/L (98-107); CREATININE 0.89 mg/dL (0.60-1.30); GLOMERULAR FILTR. RATE CALC > 60 mL/min (>60); GLUCOSE,RANDOM 172 mg/dL (70-110); POTASSIUM 3.6 mmol/L (3.5-5.1); SODIUM SERUM 139 mmol/L (136-145); UREA NITROGEN, BLOOD 19 mg/dL (7-18)
[2021-12-29 07:09] LABS: BASOPHILS % (AUTO) 0.6 % (0.0-2.0); EOSINOPHILS % (AUTO) 4.1 % (1.0-6.0); HEMATOCRIT 23.6 % (41-53); HEMOGLOBIN 8.4 g/dL (13.5-17.5); LYMPHOCYTES % (AUTO) 19.3 % (22.0-44.0); MEAN CORPUSCULAR HEMOGLOBIN 31.3 pg (26.0-34.0); MEAN CORPUSCULAR HGB CONC 35.4 G/dL (31.0-37.0); MEAN CORPUSCULAR VOLUME 88 fL (80-100); MONOCYTES # (AUTO) 0.5 K/uL (0.1-1.0); MONOCYTES % (AUTO) 9.6 % (2.0-9.0); NEUTROPHILS # (AUTO) 3.5 K/uL (1.8-7.7); NEUTROPHILS % (AUTO) 66.4 % (40.0-70.0); PLATELET COUNT (AUTO) 202 K/uL (150-450); RED BLOOD CELL COUNT(AUTO) 2.68 MIL/uL (4.50-5.90); RED CELL DISTRIBUTION WIDTH 16.6 % (11.5-14.5)
[2021-12-29 07:31] LABS: GLUCOMETER DEV NAME(LOC) 6N.1; GLUCOSE,POINT OF CARE 164 MG/DL (70-110)
[2021-12-29 07:33] LABS: ANION GAP 4 mmol/L (8-16); CARBON DIOXIDE 31 mmol/L (22-29)
[2021-12-29] MEDS ORDERED: SODIUM CHLORIDE 0.9% 250 ML IV ONE (07:49)
[2021-12-29 08:10] VITALS: BP 131/73
[2021-12-29] MEDS: CHOLECALCIFEROL (VIT D3) 5,000 [125 MCG] UNITS CAPSULE PO SCH (08:22)
[2021-12-29] MEDS: FAMOTIDINE 20 MG TABLET PO SCH (08:22)
[2021-12-29] MEDS: LOSARTAN POTASSIUM 25 MG TABLET PO SCH (08:22)
[2021-12-29] MEDS: MULTIVITAMINS, THERAPEUTIC TABLET PO SCH (08:22)
[2021-12-29] MEDS: DOCUSATE SODIUM 100 MG/10 ML LIQUID UDCUP PO SCH ×2 (08:22→21:00)
[2021-12-29] MEDS: OxyCODONE HCL/ACETAMINOPHEN 5-325 MG TABLET PO PRN ×2 (10:07→21:48)
[2021-12-29 13:01] LABS: GLUCOMETER DEV NAME(LOC) 6N.1; GLUCOSE,POINT OF CARE 198 MG/DL (70-110)
[2021-12-29 16:22] VITALS: BP 132/80
[2021-12-29 17:26] LABS: GLUCOMETER DEV NAME(LOC) 4E.2; GLUCOSE,POINT OF CARE 194 MG/DL (70-110)
[2021-12-29 20:22] VITALS: BP 137/97
[2021-12-30] MEDS: INSULIN LISPRO 100 UNITS/ML SQ PRN ×3 (00:15→17:54)
[2021-12-30] MEDS: NAFCILLIN SODIUM 2 GM in DEXTROSE 5%-WATER 100 ML IV SCH ×6 (00:16→21:29)
[2021-12-30 00:31] LABS: GLUCOMETER DEV NAME(LOC) 6N.1; GLUCOSE,POINT OF CARE 173 MG/DL (70-110)
[2021-12-30] MEDS: ZOLPIDEM TARTRATE 5 MG TABLET PO PRN (04:02)
[2021-12-30 04:13] VITALS: BP 123/82
[2021-12-30 06:51] LABS: GLUCOMETER DEV NAME(LOC) 4E.2; GLUCOSE,POINT OF CARE 162 MG/DL (70-110)
[2021-12-30] MEDS: DOCUSATE SODIUM 100 MG/10 ML LIQUID UDCUP PO SCH ×3 (08:03→21:31)
[2021-12-30] MEDS: LOSARTAN POTASSIUM 25 MG TABLET PO SCH (08:04)
[2021-12-30] MEDS: CHOLECALCIFEROL (VIT D3) 5,000 [125 MCG] UNITS CAPSULE PO SCH (08:04)
[2021-12-30] MEDS: HEPARIN SODIUM,PORCINE 5,000 UNITS/ML VIAL SQ SCH ×3 (08:04→17:03)
[2021-12-30] MEDS: FAMOTIDINE 20 MG TABLET PO SCH (08:04)
[2021-12-30] MEDS: MULTIVITAMINS, THERAPEUTIC TABLET PO SCH (08:04)
[2021-12-30 08:28] VITALS: BP 129/78
[2021-12-30] MEDS: OxyCODONE HCL/ACETAMINOPHEN 5-325 MG TABLET PO PRN (10:50)
[2021-12-30] MEDS ORDERED: SODIUM CHLORIDE 0.9% 500 ML IV ONE (12:10)
[2021-12-30] MEDS: HYDROmorphone 2 MG/ML VIAL IVP PRN ×3 (14:03→21:35)
[2021-12-30] MEDS ORDERED: GADOTERATE MEGLUMINE 10 MMOL/20 ML VIAL IVP ONE (15:12)
[2021-12-30 19:12] LABS: GLUCOMETER DEV NAME(LOC) 6N.2; GLUCOSE,POINT OF CARE 145 MG/DL (70-110)
[2021-12-30 20:01] VITALS: BP 139/83
[2021-12-31] MEDS: NAFCILLIN SODIUM 2 GM in DEXTROSE 5%-WATER 100 ML IV SCH ×7 (00:36→23:52)
[2021-12-31] MEDS: HEPARIN SODIUM,PORCINE 5,000 UNITS/ML VIAL SQ SCH ×4 (00:36→23:53)
[2021-12-31] MEDS: HYDROmorphone 2 MG/ML VIAL IVP PRN (04:36)
[2021-12-31 05:01] VITALS: BP 138/74
[2021-12-31 07:41] LABS: GLUCOMETER DEV NAME(LOC) 6N.1; GLUCOSE,POINT OF CARE 133 MG/DL (70-110)
[2021-12-31 07:45] VITALS: BP 138/79
[2021-12-31] MEDS: INSULIN LISPRO 100 UNITS/ML SQ PRN ×4 (07:56→20:26)
[2021-12-31] MEDS: OxyCODONE HCL/ACETAMINOPHEN 5-325 MG TABLET PO PRN ×2 (08:00→12:14)
[2021-12-31] MEDS: DOCUSATE SODIUM 100 MG/10 ML LIQUID UDCUP PO SCH ×3 (08:23→20:24)
[2021-12-31] MEDS: LOSARTAN POTASSIUM 25 MG TABLET PO SCH (08:23)
[2021-12-31] MEDS: CHOLECALCIFEROL (VIT D3) 5,000 [125 MCG] UNITS CAPSULE PO SCH (08:24)
[2021-12-31] MEDS: MULTIVITAMINS, THERAPEUTIC TABLET PO SCH (08:24)
[2021-12-31] MEDS: FAMOTIDINE 20 MG TABLET PO SCH (08:24)
[2021-12-31 14:41] LABS: GLUCOMETER DEV NAME(LOC) 6N.2; GLUCOSE,POINT OF CARE 98 MG/DL (70-110)
[2021-12-31 14:41] LABS: GLUCOMETER DEV NAME(LOC) 4E.2; GLUCOSE,POINT OF CARE 141 MG/DL (70-110)
[2021-12-31 15:32] VITALS: BP 123/69
[2021-12-31 17:41] LABS: GLUCOMETER DEV NAME(LOC) 4E.2; GLUCOSE,POINT OF CARE 153 MG/DL (70-110)
[2021-12-31 19:42] VITALS: BP 138/81
[2021-12-31] MEDS ORDERED: SODIUM CHLORIDE 0.9% 500 ML IV ONE (20:11)
[2021-12-31] MEDS: ACETAMINOPHEN 325 MG TABLET PO PRN (20:27)
[2021-12-31] MEDS: ZOLPIDEM TARTRATE 5 MG TABLET PO PRN (21:53)
[2021-12-31 22:06] LABS: GLUCOMETER DEV NAME(LOC) 6N.2; GLUCOSE,POINT OF CARE 176 MG/DL (70-110)
[2022-01-01] MEDS: NAFCILLIN SODIUM 2 GM in DEXTROSE 5%-WATER 100 ML IV SCH ×5 (03:53→20:16)
[2022-01-01 04:59] VITALS: BP 161/98
[2022-01-01 07:40] VITALS: BP 148/86
[2022-01-01 08:16] LABS: GLUCOMETER DEV NAME(LOC) 4E.2; GLUCOSE,POINT OF CARE 117 MG/DL (70-110)
[2022-01-01] MEDS: LOSARTAN POTASSIUM 25 MG TABLET PO SCH (08:40)
[2022-01-01] MEDS: FAMOTIDINE 20 MG TABLET PO SCH (08:40)
[2022-01-01] MEDS: MULTIVITAMINS, THERAPEUTIC TABLET PO SCH (08:41)
[2022-01-01] MEDS: CHOLECALCIFEROL (VIT D3) 5,000 [125 MCG] UNITS CAPSULE PO SCH (08:41)
[2022-01-01] MEDS: DOCUSATE SODIUM 100 MG/10 ML LIQUID UDCUP PO SCH ×2 (08:46→20:16)
[2022-01-01] MEDS: HEPARIN SODIUM,PORCINE 5,000 UNITS/ML VIAL SQ SCH (10:30)
[2022-01-01] MEDS: INSULIN LISPRO 100 UNITS/ML SQ PRN ×3 (11:51→20:18)
[2022-01-01] MEDS: ACETAMINOPHEN 325 MG TABLET PO PRN ×2 (14:00→20:16)
[2022-01-01 16:22] VITALS: BP 143/81
[2022-01-01] MEDS: MAG HYDROX/AL HYDROX/SIMETH 30 ML SUSP UDCUP PO PRN (16:56)
[2022-01-01 19:31] LABS: GLUCOMETER DEV NAME(LOC) 6N.1; GLUCOSE,POINT OF CARE 176 MG/DL (70-110)
[2022-01-01 19:46] LABS: GLUCOMETER DEV NAME(LOC) 4E.2; GLUCOSE,POINT OF CARE 91 MG/DL (70-110)
[2022-01-01 19:59] VITALS: BP 140/78
[2022-01-01] MEDS: ZOLPIDEM TARTRATE 5 MG TABLET PO PRN (20:16)
[2022-01-01 22:26] LABS: GLUCOMETER DEV NAME(LOC) 6N.2; GLUCOSE,POINT OF CARE 236 MG/DL (70-110)
[2022-01-02] MEDS: NAFCILLIN SODIUM 2 GM in DEXTROSE 5%-WATER 100 ML IV SCH ×6 (00:47→20:29)
[2022-01-02] MEDS: ACETAMINOPHEN 325 MG TABLET PO PRN (03:56)
[2022-01-02 04:26] VITALS: BP 130/79
[2022-01-02] MEDS: INSULIN LISPRO 100 UNITS/ML SQ PRN ×3 (06:19→21:01)
[2022-01-02 06:46] LABS: GLUCOMETER DEV NAME(LOC) 6N.1; GLUCOSE,POINT OF CARE 175 MG/DL (70-110)
[2022-01-02] MEDS: FAMOTIDINE 20 MG TABLET PO SCH (08:11)
[2022-01-02] MEDS: MULTIVITAMINS, THERAPEUTIC TABLET PO SCH (08:11)
[2022-01-02] MEDS: DOCUSATE SODIUM 100 MG/10 ML LIQUID UDCUP PO SCH ×2 (08:11→20:31)
[2022-01-02 08:23] VITALS: BP 145/85
[2022-01-02] MEDS: CHOLECALCIFEROL (VIT D3) 5,000 [125 MCG] UNITS CAPSULE PO SCH (08:25)
[2022-01-02] MEDS: LOSARTAN POTASSIUM 25 MG TABLET PO SCH (08:26)
[2022-01-02 10:24] LABS: BASOPHILS % (AUTO) 0.6 % (0.0-2.0); EOSINOPHILS % (AUTO) 5.5 % (1.0-6.0); HEMATOCRIT 23.4 % (41-53); HEMOGLOBIN 8.2 g/dL (13.5-17.5); LYMPHOCYTES # (AUTO) 0.9 K/uL (1.0-4.8); LYMPHOCYTES % (AUTO) 18.4 % (22.0-44.0); MEAN CORPUSCULAR HEMOGLOBIN 31.2 pg (26.0-34.0); MEAN CORPUSCULAR HGB CONC 35.1 G/dL (31.0-37.0); MEAN CORPUSCULAR VOLUME 89 fL (80-100); MONOCYTES # (AUTO) 0.4 K/uL (0.1-1.0); MONOCYTES % (AUTO) 7.5 % (2.0-9.0); NEUTROPHILS # (AUTO) 3.3 K/uL (1.8-7.7); PLATELET COUNT (AUTO) 163 K/uL (150-450); RED BLOOD CELL COUNT(AUTO) 2.63 MIL/uL (4.50-5.90); RED CELL DISTRIBUTION WIDTH 18.4 % (11.5-14.5)
[2022-01-02 10:47] LABS: ALANINE AMINOTRANSFERASE 8 U/L (12-78); ALBUMIN 1.3 g/dL (3.4-5.0); ALKALINE PHOSPHATASE 78 U/L (46-116); ANION GAP 4 mmol/L (8-16); ASPARTATE AMINOTRANSFERASE 12 U/L (15-37); BILIRUBIN,TOTAL 0.8 mg/dL (0.1-1.0); CALCIUM, TOTAL 8.2 mg/dL (8.8-10.5); CARBON DIOXIDE 28 mmol/L (22-29); CHLORIDE 106 mmol/L (98-107); CREATININE 0.84 mg/dL (0.60-1.30); GLOMERULAR FILTR. RATE CALC > 60 mL/min (>60); GLUCOSE,RANDOM 165 mg/dL (70-110); POTASSIUM 3.2 mmol/L (3.5-5.1); SODIUM SERUM 138 mmol/L (136-145); UREA NITROGEN, BLOOD 18 mg/dL (7-18)
[2022-01-02] MEDS: POTASSIUM CHL 10 MEQ/WATER 50 ML IV PRN ×3 (11:21→14:44)
[2022-01-02 12:07] LABS: GLUCOMETER DEV NAME(LOC) 4E.2; GLUCOSE,POINT OF CARE 152 MG/DL (70-110)
[2022-01-02 15:19] VITALS: BP 140/82
[2022-01-02] MEDS: HEPARIN SODIUM,PORCINE 5,000 UNITS/ML VIAL SQ SCH (16:21)
[2022-01-02 17:06] LABS: GLUCOMETER DEV NAME(LOC) 4E.2; GLUCOSE,POINT OF CARE 129 MG/DL (70-110)
[2022-01-02 19:20] VITALS: BP 147/92
[2022-01-02] MEDS: ZOLPIDEM TARTRATE 5 MG TABLET PO PRN (21:07)
[2022-01-02 21:11] LABS: GLUCOMETER DEV NAME(LOC) 4E.2; GLUCOSE,POINT OF CARE 197 MG/DL (70-110)
[2022-01-03] MEDS: OxyCODONE HCL/ACETAMINOPHEN 5-325 MG TABLET PO PRN ×2 (00:32→08:21)
[2022-01-03] MEDS: NAFCILLIN SODIUM 2 GM in DEXTROSE 5%-WATER 100 ML IV SCH ×6 (00:33→20:27)
[2022-01-03 04:38] VITALS: BP 141/85
[2022-01-03 07:10] LABS: GLUCOMETER DEV NAME(LOC) 6N.2; GLUCOSE,POINT OF CARE 147 MG/DL (70-110)
[2022-01-03 08:00] VITALS: BP 134/80
[2022-01-03] MEDS: HEPARIN SODIUM,PORCINE 5,000 UNITS/ML VIAL SQ SCH ×3 (08:20→15:51)
[2022-01-03] MEDS: CHOLECALCIFEROL (VIT D3) 5,000 [125 MCG] UNITS CAPSULE PO SCH (08:20)
[2022-01-03] MEDS: DOCUSATE SODIUM 100 MG/10 ML LIQUID UDCUP PO SCH ×2 (08:20→20:27)
[2022-01-03] MEDS: MULTIVITAMINS, THERAPEUTIC TABLET PO SCH (08:20)
[2022-01-03] MEDS: LOSARTAN POTASSIUM 25 MG TABLET PO SCH (08:20)
[2022-01-03] MEDS: FAMOTIDINE 20 MG TABLET PO SCH (08:20)
[2022-01-03] MEDS: INSULIN LISPRO 100 UNITS/ML SQ PRN (12:00)
[2022-01-03 15:46] LABS: GLUCOMETER DEV NAME(LOC) 4E.2; GLUCOSE,POINT OF CARE 165 MG/DL (70-110)
[2022-01-03 16:42] VITALS: BP 139/91
[2022-01-03 17:46] LABS: GLUCOMETER DEV NAME(LOC) 6N.1; GLUCOSE,POINT OF CARE 112 MG/DL (70-110)
[2022-01-03 20:10] VITALS: BP 148/95
[2022-01-03] MEDS: ACETAMINOPHEN 325 MG TABLET PO PRN (20:27)
[2022-01-04] MEDS: NAFCILLIN SODIUM 2 GM in DEXTROSE 5%-WATER 100 ML IV SCH ×7 (04:50→20:25)
[2022-01-04 05:51] VITALS: BP 130/80
[2022-01-04 06:51] LABS: GLUCOMETER DEV NAME(LOC) 6N.2; GLUCOSE,POINT OF CARE 147 MG/DL (70-110)
[2022-01-04 06:51] LABS: GLUCOMETER DEV NAME(LOC) 6N.1; GLUCOSE,POINT OF CARE 135 MG/DL (70-110)
[2022-01-04] MEDS ORDERED: SODIUM CHLORIDE 0.9% 500 ML IV ONE (07:54)
[2022-01-04] MEDS: HEPARIN SODIUM,PORCINE 5,000 UNITS/ML VIAL SQ SCH ×3 (08:00→16:11)
[2022-01-04] MEDS: DOCUSATE SODIUM 100 MG/10 ML LIQUID UDCUP PO SCH ×2 (08:00→20:25)
[2022-01-04] MEDS: FAMOTIDINE 20 MG TABLET PO SCH (08:01)
[2022-01-04] MEDS: LOSARTAN POTASSIUM 25 MG TABLET PO SCH (08:01)
[2022-01-04] MEDS: MULTIVITAMINS, THERAPEUTIC TABLET PO SCH (08:02)
[2022-01-04] MEDS: CHOLECALCIFEROL (VIT D3) 5,000 [125 MCG] UNITS CAPSULE PO SCH (08:02)
[2022-01-04 08:13] VITALS: BP 143/92
[2022-01-04] MEDS: INSULIN LISPRO 100 UNITS/ML SQ PRN ×3 (11:48→20:35)
[2022-01-04 13:41] LABS: GLUCOMETER DEV NAME(LOC) 6N.2; GLUCOSE,POINT OF CARE 145 MG/DL (70-110)
[2022-01-04 18:40] VITALS: BP 148/93
[2022-01-04 19:11] LABS: GLUCOMETER DEV NAME(LOC) 6N.2; GLUCOSE,POINT OF CARE 144 MG/DL (70-110)
[2022-01-04 20:05] VITALS: BP 150/89
[2022-01-04] MEDS: OxyCODONE HCL/ACETAMINOPHEN 5-325 MG TABLET PO PRN (20:25)
[2022-01-04] MEDS: ZOLPIDEM TARTRATE 5 MG TABLET PO PRN (22:35)
[2022-01-05] MEDS: NAFCILLIN SODIUM 2 GM in DEXTROSE 5%-WATER 100 ML IV SCH ×7 (02:00→23:28)
[2022-01-05] MEDS: HEPARIN SODIUM,PORCINE 5,000 UNITS/ML VIAL SQ SCH ×4 (02:01→23:28)
[2022-01-05 04:30] VITALS: BP 133/84
[2022-01-05 07:04] LABS: ALANINE AMINOTRANSFERASE 9 U/L (12-78); ALBUMIN 1.4 g/dL (3.4-5.0); ALKALINE PHOSPHATASE 81 U/L (46-116); ANION GAP 6 mmol/L (8-16); ASPARTATE AMINOTRANSFERASE 13 U/L (15-37); BILIRUBIN,TOTAL 0.8 mg/dL (0.1-1.0); CALCIUM, TOTAL 8.4 mg/dL (8.8-10.5); CARBON DIOXIDE 29 mmol/L (22-29); CHLORIDE 106 mmol/L (98-107); CREATININE 0.85 mg/dL (0.60-1.30); GLOMERULAR FILTR. RATE CALC > 60 mL/min (>60); GLUCOSE,RANDOM 159 mg/dL (70-110); PHOSPHORUS 3.4 mg/dL (2.5-4.9); POTASSIUM 3.4 mmol/L (3.5-5.1); SODIUM SERUM 141 mmol/L (136-145); TOTAL PROTEIN, SERUM 6.2 g/dL (6.4-8.2); UREA NITROGEN, BLOOD 17 mg/dL (7-18)
[2022-01-05 07:50] VITALS: BP 146/91
[2022-01-05] MEDS: DOCUSATE SODIUM 100 MG/10 ML LIQUID UDCUP PO SCH ×2 (08:03→20:16)
[2022-01-05] MEDS: LOSARTAN POTASSIUM 25 MG TABLET PO SCH (08:03)
[2022-01-05] MEDS: FAMOTIDINE 20 MG TABLET PO SCH (08:04)
[2022-01-05] MEDS: MULTIVITAMINS, THERAPEUTIC TABLET PO SCH (08:05)
[2022-01-05] MEDS: CHOLECALCIFEROL (VIT D3) 5,000 [125 MCG] UNITS CAPSULE PO SCH (08:05)
[2022-01-05] MEDS: POTASSIUM CHLORIDE 20 MEQ ER TABLET PO PRN (08:06)
[2022-01-05] MEDS: OxyCODONE HCL/ACETAMINOPHEN 5-325 MG TABLET PO PRN (08:08)
[2022-01-05] MEDS ORDERED: SODIUM CL IRRIG SOLN BOTTLE 0 ML IRRIG ONE (08:57)
[2022-01-05 10:36] LABS: GLUCOMETER DEV NAME(LOC) 4E.2; GLUCOSE,POINT OF CARE 145 MG/DL (70-110)
[2022-01-05] MEDS ORDERED: SODIUM CHLORIDE 0.9% 500 ML IV ONE ×2 (11:14→23:22)
[2022-01-05 12:02] VITALS: BP 140/89
[2022-01-05] MEDS: INSULIN LISPRO 100 UNITS/ML SQ PRN ×2 (12:08→17:23)
[2022-01-05 12:23] LABS: POTASSIUM 3.6 mmol/L (3.5-5.1)
[2022-01-05] MEDS ORDERED: MAGNESIUM SULFATE 4 GM/WATER 100 ML IV PRN (12:45)
[2022-01-05] MEDS ORDERED: MAGNESIUM SULFATE 2 GM/WATER 50 ML IV PRN (12:45)
[2022-01-05 12:55] LABS: ALBUMIN 1.4 g/dL (3.4-5.0)
[2022-01-05 12:56] LABS: GLUCOMETER DEV NAME(LOC) 6S.1B; GLUCOSE,POINT OF CARE 165 MG/DL (70-110)
[2022-01-05 15:42] VITALS: BP 134/83
[2022-01-05] MEDS: MAGNESIUM OXIDE 400 MG TABLET PO PRN (17:18)
[2022-01-05 18:51] LABS: GLUCOMETER DEV NAME(LOC) 6N.1; GLUCOSE,POINT OF CARE 146 MG/DL (70-110)
[2022-01-05 19:53] VITALS: BP 140/91
[2022-01-05] MEDS: ZOLPIDEM TARTRATE 5 MG TABLET PO PRN (20:17)
[2022-01-05 21:16] LABS: GLUCOMETER DEV NAME(LOC) 6N.1; GLUCOSE,POINT OF CARE 133 MG/DL (70-110)
[2022-01-05 21:16] LABS: GLUCOMETER DEV NAME(LOC) 6N.2; GLUCOSE,POINT OF CARE 162 MG/DL (70-110)
[2022-01-06] MEDS: MAGNESIUM OXIDE 400 MG TABLET PO PRN ×2 (02:03→06:07)
[2022-01-06] MEDS: NAFCILLIN SODIUM 2 GM in DEXTROSE 5%-WATER 100 ML IV SCH ×5 (03:38→21:19)
[2022-01-06 04:35] VITALS: BP 139/80
[2022-01-06] MEDS: OxyCODONE HCL/ACETAMINOPHEN 5-325 MG TABLET PO PRN (04:52)
[2022-01-06 06:46] LABS: GLUCOMETER DEV NAME(LOC) 6S.1B; GLUCOSE,POINT OF CARE 110 MG/DL (70-110)
[2022-01-06] MEDS: DOCUSATE SODIUM 100 MG/10 ML LIQUID UDCUP PO SCH ×3 (08:48→21:19)
[2022-01-06] MEDS: MULTIVITAMINS, THERAPEUTIC TABLET PO SCH (08:48)
[2022-01-06] MEDS: HEPARIN SODIUM,PORCINE 5,000 UNITS/ML VIAL SQ SCH ×2 (08:48→16:23)
[2022-01-06] MEDS: CHOLECALCIFEROL (VIT D3) 5,000 [125 MCG] UNITS CAPSULE PO SCH (08:49)
[2022-01-06] MEDS: FAMOTIDINE 20 MG TABLET PO SCH (08:50)
[2022-01-06] MEDS: LOSARTAN POTASSIUM 25 MG TABLET PO SCH (08:50)
[2022-01-06 09:57] VITALS: BP 136/85
[2022-01-06 12:41] LABS: GLUCOMETER DEV NAME(LOC) 6N.2; GLUCOSE,POINT OF CARE 124 MG/DL (70-110)
[2022-01-06] MEDS: MAG HYDROX/AL HYDROX/SIMETH 30 ML SUSP UDCUP PO PRN (15:50)
[2022-01-06 15:59] VITALS: BP 145/87
[2022-01-06] MEDS: INSULIN LISPRO 100 UNITS/ML SQ PRN ×2 (17:30→20:46)
[2022-01-06] MEDS: HYDROmorphone 2 MG/ML VIAL IVP PRN (19:48)
[2022-01-06 19:59] VITALS: BP 140/92
[2022-01-06 20:46] LABS: GLUCOMETER DEV NAME(LOC) 6S.1B; GLUCOSE,POINT OF CARE 158 MG/DL (70-110)
[2022-01-06 20:51] LABS: GLUCOMETER DEV NAME(LOC) 6N.2; GLUCOSE,POINT OF CARE 161 MG/DL (70-110)
[2022-01-07] MEDS: HYDROmorphone 2 MG/ML VIAL IVP PRN ×4 (00:39→20:48)
[2022-01-07] MEDS: NAFCILLIN SODIUM 2 GM in DEXTROSE 5%-WATER 100 ML IV SCH ×6 (00:44→20:47)
[2022-01-07] MEDS: HEPARIN SODIUM,PORCINE 5,000 UNITS/ML VIAL SQ SCH ×3 (00:49→16:19)
[2022-01-07] MEDS ORDERED: SODIUM CHLORIDE 0.9% 500 ML IV ONE (04:28)
[2022-01-07 04:55] VITALS: BP 140/84
[2022-01-07 06:06] LABS: GLUCOMETER DEV NAME(LOC) 6N.1; GLUCOSE,POINT OF CARE 118 MG/DL (70-110)
[2022-01-07 08:00] VITALS: BP 149/91
[2022-01-07] MEDS: CHOLECALCIFEROL (VIT D3) 5,000 [125 MCG] UNITS CAPSULE PO SCH (08:18)
[2022-01-07] MEDS: FAMOTIDINE 20 MG TABLET PO SCH (08:18)
[2022-01-07] MEDS: MULTIVITAMINS, THERAPEUTIC TABLET PO SCH (08:18)
[2022-01-07] MEDS: DOCUSATE SODIUM 100 MG/10 ML LIQUID UDCUP PO SCH ×2 (08:18→20:47)
[2022-01-07] MEDS: LOSARTAN POTASSIUM 25 MG TABLET PO SCH (08:18)
[2022-01-07 12:31] LABS: GLUCOMETER DEV NAME(LOC) 6N.1; GLUCOSE,POINT OF CARE 139 MG/DL (70-110)
[2022-01-07 15:15] VITALS: BP 144/89
[2022-01-07] MEDS: INSULIN LISPRO 100 UNITS/ML SQ PRN (17:10)
[2022-01-07 19:39] VITALS: BP 130/86
[2022-01-07 19:45] LABS: GLUCOMETER DEV NAME(LOC) 6N.1; GLUCOSE,POINT OF CARE 153 MG/DL (70-110)
[2022-01-07 22:41] LABS: GLUCOMETER DEV NAME(LOC) 6N.2; GLUCOSE,POINT OF CARE 106 MG/DL (70-110)
[2022-01-08] MEDS: NAFCILLIN SODIUM 2 GM in DEXTROSE 5%-WATER 100 ML IV SCH ×7 (00:01→23:34)
[2022-01-08] MEDS: OxyCODONE HCL/ACETAMINOPHEN 5-325 MG TABLET PO PRN (00:45)
[2022-01-08 04:47] VITALS: BP 140/92
[2022-01-08] MEDS: HYDROmorphone 2 MG/ML VIAL IVP PRN ×4 (05:36→23:33)
[2022-01-08 06:41] LABS: GLUCOMETER DEV NAME(LOC) 6N.2; GLUCOSE,POINT OF CARE 107 MG/DL (70-110)
[2022-01-08 08:25] VITALS: BP 135/91
[2022-01-08] MEDS: DOCUSATE SODIUM 100 MG/10 ML LIQUID UDCUP PO SCH ×2 (08:45→20:06)
[2022-01-08] MEDS: HEPARIN SODIUM,PORCINE 5,000 UNITS/ML VIAL SQ SCH ×4 (08:45→23:41)
[2022-01-08] MEDS: LOSARTAN POTASSIUM 25 MG TABLET PO SCH (08:46)
[2022-01-08] MEDS: CHOLECALCIFEROL (VIT D3) 5,000 [125 MCG] UNITS CAPSULE PO SCH (08:46)
[2022-01-08] MEDS: FAMOTIDINE 20 MG TABLET PO SCH (08:46)
[2022-01-08] MEDS: MULTIVITAMINS, THERAPEUTIC TABLET PO SCH (08:46)
[2022-01-08 13:21] LABS: GLUCOMETER DEV NAME(LOC) 6N.1; GLUCOSE,POINT OF CARE 108 MG/DL (70-110)
[2022-01-08 16:58] VITALS: BP 145/88
[2022-01-08 17:26] LABS: GLUCOMETER DEV NAME(LOC) 6N.1; GLUCOSE,POINT OF CARE 128 MG/DL (70-110)
[2022-01-08 20:58] VITALS: BP 138/86
[2022-01-08] MEDS: INSULIN LISPRO 100 UNITS/ML SQ PRN (21:02)
[2022-01-08 23:41] LABS: GLUCOMETER DEV NAME(LOC) 6N.2; GLUCOSE,POINT OF CARE 155 MG/DL (70-110)
[2022-01-09] MEDS: OxyCODONE HCL/ACETAMINOPHEN 5-325 MG TABLET PO PRN ×3 (03:22→17:22)
[2022-01-09] MEDS: NAFCILLIN SODIUM 2 GM in DEXTROSE 5%-WATER 100 ML IV SCH ×5 (03:23→20:15)
[2022-01-09 06:45] LABS: BASOPHILS % (AUTO) 0.5 % (0.0-2.0); EOSINOPHILS % (AUTO) 7.4 % (1.0-6.0); HEMATOCRIT 24.4 % (41-53); HEMOGLOBIN 8.8 g/dL (13.5-17.5); LYMPHOCYTES # (AUTO) 1.2 K/uL (1.0-4.8); LYMPHOCYTES % (AUTO) 22.6 % (22.0-44.0); MEAN CORPUSCULAR HEMOGLOBIN 32.4 pg (26.0-34.0); MEAN CORPUSCULAR HGB CONC 35.9 G/dL (31.0-37.0); MEAN CORPUSCULAR VOLUME 90 fL (80-100); MONOCYTES # (AUTO) 0.4 K/uL (0.1-1.0); MONOCYTES % (AUTO) 7.5 % (2.0-9.0); NEUTROPHILS # (AUTO) 3.4 K/uL (1.8-7.7); PLATELET COUNT (AUTO) 170 K/uL (150-450); RED CELL DISTRIBUTION WIDTH 20.1 % (11.5-14.5)
[2022-01-09 06:58] LABS: ALANINE AMINOTRANSFERASE 10 U/L (12-78); ALBUMIN 1.6 g/dL (3.4-5.0); ALKALINE PHOSPHATASE 86 U/L (46-116); ANION GAP 6 mmol/L (8-16); ASPARTATE AMINOTRANSFERASE 15 U/L (15-37); BILIRUBIN,TOTAL 0.8 mg/dL (0.1-1.0); CALCIUM, TOTAL 8.7 mg/dL (8.8-10.5); CARBON DIOXIDE 29 mmol/L (22-29); CHLORIDE 104 mmol/L (98-107); CREATININE 0.86 mg/dL (0.60-1.30); GLOMERULAR FILTR. RATE CALC > 60 mL/min (>60); GLUCOSE,RANDOM 115 mg/dL (70-110); POTASSIUM 3.4 mmol/L (3.5-5.1); SODIUM SERUM 139 mmol/L (136-145); TOTAL PROTEIN, SERUM 6.4 g/dL (6.4-8.2); UREA NITROGEN, BLOOD 17 mg/dL (7-18)
[2022-01-09 07:16] LABS: GLUCOMETER DEV NAME(LOC) 6N.1; GLUCOSE,POINT OF CARE 113 MG/DL (70-110)
[2022-01-09 07:54] VITALS: BP 139/81
[2022-01-09] MEDS ORDERED: SODIUM CHLORIDE 0.9% 500 ML IV ONE (08:54)
[2022-01-09] MEDS: CHOLECALCIFEROL (VIT D3) 5,000 [125 MCG] UNITS CAPSULE PO SCH (08:55)
[2022-01-09] MEDS: POTASSIUM CHLORIDE 20 MEQ ER TABLET PO PRN (08:55)
[2022-01-09] MEDS: MULTIVITAMINS, THERAPEUTIC TABLET PO SCH (08:55)
[2022-01-09] MEDS: HEPARIN SODIUM,PORCINE 5,000 UNITS/ML VIAL SQ SCH ×2 (08:55→15:30)
[2022-01-09] MEDS: FAMOTIDINE 20 MG TABLET PO SCH (08:56)
[2022-01-09] MEDS: DOCUSATE SODIUM 100 MG/10 ML LIQUID UDCUP PO SCH (08:56)
[2022-01-09] MEDS: LOSARTAN POTASSIUM 25 MG TABLET PO SCH (08:56)
[2022-01-09 10:56] LABS: C-REACTIVE PROTEIN QUANT 3.27 mg/dL (0.00-0.30)
[2022-01-09] MEDS ORDERED: POLYETHYLENE GLYCOL 3350 17 GM PACKET PO PRN (16:00)
[2022-01-09] MEDS ORDERED: SENNA/DOCUSATE SODIUM 8.6-50 MG TABLET PO PRN (16:00)
[2022-01-09 16:09] VITALS: BP 133/77
[2022-01-09] MEDS: DOCUSATE SODIUM 100 MG CAPSULE PO SCH ×2 (16:14→20:17)
[2022-01-09] MEDS: INSULIN LISPRO 100 UNITS/ML SQ PRN (17:19)
[2022-01-09 18:40] LABS: GLUCOMETER DEV NAME(LOC) 6N.2; GLUCOSE,POINT OF CARE 124 MG/DL (70-110)
[2022-01-09 18:41] LABS: GLUCOMETER DEV NAME(LOC) 6N.1; GLUCOSE,POINT OF CARE 141 MG/DL (70-110)
[2022-01-09 19:23] VITALS: BP 140/88
[2022-01-09] MEDS: ZOLPIDEM TARTRATE 5 MG TABLET PO PRN (20:15)
[2022-01-10] MEDS: NAFCILLIN SODIUM 2 GM in DEXTROSE 5%-WATER 100 ML IV SCH ×6 (00:24→20:53)
[2022-01-10] MEDS: HEPARIN SODIUM,PORCINE 5,000 UNITS/ML VIAL SQ SCH ×3 (00:25→16:45)
[2022-01-10 01:36] LABS: GLUCOMETER DEV NAME(LOC) 6N.2; GLUCOSE,POINT OF CARE 118 MG/DL (70-110)
[2022-01-10] MEDS: OxyCODONE HCL/ACETAMINOPHEN 5-325 MG TABLET PO PRN ×4 (03:28→18:34)
[2022-01-10 04:25] VITALS: BP 136/86
[2022-01-10 06:31] LABS: GLUCOMETER DEV NAME(LOC) 6N.2; GLUCOSE,POINT OF CARE 130 MG/DL (70-110)
[2022-01-10 07:23] LABS: BASOPHILS % (AUTO) 0.8 % (0.0-2.0); EOSINOPHILS % (AUTO) 7.9 % (1.0-6.0); HEMATOCRIT 23.6 % (41-53); HEMOGLOBIN 8.4 g/dL (13.5-17.5); LYMPHOCYTES # (AUTO) 1.2 K/uL (1.0-4.8); LYMPHOCYTES % (AUTO) 26.5 % (22.0-44.0); MEAN CORPUSCULAR HEMOGLOBIN 32.5 pg (26.0-34.0); MEAN CORPUSCULAR HGB CONC 35.6 G/dL (31.0-37.0); MEAN CORPUSCULAR VOLUME 91 fL (80-100); MONOCYTES # (AUTO) 0.4 K/uL (0.1-1.0); MONOCYTES % (AUTO) 8.1 % (2.0-9.0); NEUTROPHILS # (AUTO) 2.6 K/uL (1.8-7.7); NEUTROPHILS % (AUTO) 56.7 % (40.0-70.0); PLATELET COUNT (AUTO) 177 K/uL (150-450); RED BLOOD CELL COUNT(AUTO) 2.59 MIL/uL (4.50-5.90); RED CELL DISTRIBUTION WIDTH 20.4 % (11.5-14.5)
[2022-01-10 07:25] LABS: ANION GAP 2 mmol/L (8-16); CALCIUM, TOTAL 8.6 mg/dL (8.8-10.5); CARBON DIOXIDE 32 mmol/L (22-29); CHLORIDE 107 mmol/L (98-107); CREATININE 0.84 mg/dL (0.60-1.30); GLOMERULAR FILTR. RATE CALC > 60 mL/min (>60); GLUCOSE,RANDOM 155 mg/dL (70-110); POTASSIUM 3.3 mmol/L (3.5-5.1); SODIUM SERUM 141 mmol/L (136-145); UREA NITROGEN, BLOOD 17 mg/dL (7-18)
[2022-01-10 08:05] VITALS: BP 142/84
[2022-01-10] MEDS: LOSARTAN POTASSIUM 25 MG TABLET PO SCH (09:47)
[2022-01-10] MEDS: FAMOTIDINE 20 MG TABLET PO SCH (09:47)
[2022-01-10] MEDS: DOCUSATE SODIUM 100 MG CAPSULE PO SCH ×3 (09:47→20:53)
[2022-01-10] MEDS: MULTIVITAMINS, THERAPEUTIC TABLET PO SCH (09:48)
[2022-01-10] MEDS: CHOLECALCIFEROL (VIT D3) 5,000 [125 MCG] UNITS CAPSULE PO SCH (09:50)
[2022-01-10] MEDS: POTASSIUM CHLORIDE 20 MEQ ER TABLET PO PRN (12:02)
[2022-01-10] MEDS: INSULIN LISPRO 100 UNITS/ML SQ PRN (12:21)
[2022-01-10 12:26] LABS: GLUCOMETER DEV NAME(LOC) 6N.2; GLUCOSE,POINT OF CARE 155 MG/DL (70-110)
[2022-01-10 15:50] VITALS: BP 138/83
[2022-01-10 17:42] LABS: GLUCOMETER DEV NAME(LOC) 6N.2; GLUCOSE,POINT OF CARE 112 MG/DL (70-110)
[2022-01-10 20:22] VITALS: BP 148/93
[2022-01-10] MEDS: ZOLPIDEM TARTRATE 5 MG TABLET PO PRN (20:58)
[2022-01-10] MEDS: ACETAMINOPHEN 325 MG TABLET PO PRN (20:58)
[2022-01-10 21:41] LABS: GLUCOMETER DEV NAME(LOC) 6S.1B; GLUCOSE,POINT OF CARE 110 MG/DL (70-110)
[2022-01-11] MEDS: NAFCILLIN SODIUM 2 GM in DEXTROSE 5%-WATER 100 ML IV SCH ×7 (00:18→23:47)
[2022-01-11] MEDS: HEPARIN SODIUM,PORCINE 5,000 UNITS/ML VIAL SQ SCH ×4 (00:21→23:47)
[2022-01-11 05:25] VITALS: BP 144/81
[2022-01-11 06:24] LABS: BASOPHILS % (AUTO) 0.7 % (0.0-2.0); EOSINOPHILS % (AUTO) 9.3 % (1.0-6.0); HEMATOCRIT 22.8 % (41-53); HEMOGLOBIN 8.1 g/dL (13.5-17.5); LYMPHOCYTES # (AUTO) 1.6 K/uL (1.0-4.8); LYMPHOCYTES % (AUTO) 32.2 % (22.0-44.0); MEAN CORPUSCULAR HEMOGLOBIN 32.4 pg (26.0-34.0); MEAN CORPUSCULAR HGB CONC 35.6 G/dL (31.0-37.0); MEAN CORPUSCULAR VOLUME 91 fL (80-100); MONOCYTES # (AUTO) 0.4 K/uL (0.1-1.0); MONOCYTES % (AUTO) 7.3 % (2.0-9.0); NEUTROPHILS # (AUTO) 2.5 K/uL (1.8-7.7); NEUTROPHILS % (AUTO) 50.5 % (40.0-70.0); PLATELET COUNT (AUTO) 190 K/uL (150-450); RED CELL DISTRIBUTION WIDTH 21.1 % (11.5-14.5)
[2022-01-11 06:39] LABS: ANION GAP 8 mmol/L (8-16); CARBON DIOXIDE 29 mmol/L (22-29); CHLORIDE 106 mmol/L (98-107); POTASSIUM 3.8 mmol/L (3.5-5.1); SODIUM SERUM 143 mmol/L (136-145)
[2022-01-11 06:40] LABS: ALANINE AMINOTRANSFERASE 7 U/L (12-78); ALBUMIN 1.5 g/dL (3.4-5.0); ALKALINE PHOSPHATASE 82 U/L (46-116); ASPARTATE AMINOTRANSFERASE 13 U/L (15-37); BILIRUBIN,TOTAL 0.9 mg/dL (0.1-1.0); CALCIUM, TOTAL 8.6 mg/dL (8.8-10.5); GLOMERULAR FILTR. RATE CALC > 60 mL/min (>60); GLUCOSE,RANDOM 112 mg/dL (70-110); TOTAL PROTEIN, SERUM 6.3 g/dL (6.4-8.2); UREA NITROGEN, BLOOD 15 mg/dL (7-18)
[2022-01-11] MEDS: OxyCODONE HCL/ACETAMINOPHEN 5-325 MG TABLET PO PRN ×3 (07:59→19:44)
[2022-01-11] MEDS: LOSARTAN POTASSIUM 25 MG TABLET PO SCH (08:02)
[2022-01-11] MEDS: CHOLECALCIFEROL (VIT D3) 5,000 [125 MCG] UNITS CAPSULE PO SCH (08:02)
[2022-01-11] MEDS: MULTIVITAMINS, THERAPEUTIC TABLET PO SCH (08:02)
[2022-01-11] MEDS: FAMOTIDINE 20 MG TABLET PO SCH (08:02)
[2022-01-11] MEDS: DOCUSATE SODIUM 100 MG CAPSULE PO SCH ×3 (08:03→19:44)
[2022-01-11 08:39] VITALS: BP 149/94
[2022-01-11 12:17] LABS: GLUCOMETER DEV NAME(LOC) 6N.2; GLUCOSE,POINT OF CARE 116 MG/DL (70-110)
[2022-01-11 12:17] LABS: GLUCOMETER DEV NAME(LOC) 6N.2; GLUCOSE,POINT OF CARE 98 MG/DL (70-110)
[2022-01-11 16:42] VITALS: BP 140/90
[2022-01-11] MEDS: INSULIN LISPRO 100 UNITS/ML SQ PRN (19:44)
[2022-01-11] MEDS: ZOLPIDEM TARTRATE 5 MG TABLET PO PRN (19:44)
[2022-01-11 19:51] LABS: GLUCOMETER DEV NAME(LOC) 6N.1; GLUCOSE,POINT OF CARE 149 MG/DL (70-110)
[2022-01-11 19:57] VITALS: BP 138/86
[2022-01-12] MEDS: NAFCILLIN SODIUM 2 GM in DEXTROSE 5%-WATER 100 ML IV SCH ×5 (03:25→19:53)
[2022-01-12 04:42] VITALS: BP 145/93
[2022-01-12 06:06] LABS: GLUCOMETER DEV NAME(LOC) 6S.1B; GLUCOSE,POINT OF CARE 134 MG/DL (70-110)
[2022-01-12 07:01] LABS: BASOPHILS % (AUTO) 0.7 % (0.0-2.0); EOSINOPHILS % (AUTO) 7.9 % (1.0-6.0); HEMATOCRIT 24.8 % (41-53); HEMOGLOBIN 8.6 g/dL (13.5-17.5); LYMPHOCYTES # (AUTO) 1.6 K/uL (1.0-4.8); LYMPHOCYTES % (AUTO) 33.2 % (22.0-44.0); MEAN CORPUSCULAR HEMOGLOBIN 32.2 pg (26.0-34.0); MEAN CORPUSCULAR HGB CONC 34.8 G/dL (31.0-37.0); MEAN CORPUSCULAR VOLUME 92 fL (80-100); MONOCYTES # (AUTO) 0.4 K/uL (0.1-1.0); MONOCYTES % (AUTO) 7.4 % (2.0-9.0); NEUTROPHILS # (AUTO) 2.4 K/uL (1.8-7.7); NEUTROPHILS % (AUTO) 50.8 % (40.0-70.0); PLATELET COUNT (AUTO) 187 K/uL (150-450); RED BLOOD CELL COUNT(AUTO) 2.68 MIL/uL (4.50-5.90); RED CELL DISTRIBUTION WIDTH 20.8 % (11.5-14.5)
[2022-01-12 07:15] LABS: ALBUMIN 1.5 g/dL (3.4-5.0); ANION GAP 3 mmol/L (8-16); CALCIUM, TOTAL 8.5 mg/dL (8.8-10.5); CARBON DIOXIDE 31 mmol/L (22-29); CHLORIDE 106 mmol/L (98-107); CREATININE 0.86 mg/dL (0.60-1.30); GLOMERULAR FILTR. RATE CALC > 60 mL/min (>60); GLUCOSE,RANDOM 138 mg/dL (70-110); POTASSIUM 3.5 mmol/L (3.5-5.1); SODIUM SERUM 140 mmol/L (136-145); UREA NITROGEN, BLOOD 17 mg/dL (7-18)
[2022-01-12 07:27] VITALS: BP 142/96
[2022-01-12] MEDS: DOCUSATE SODIUM 100 MG CAPSULE PO SCH ×3 (08:06→21:12)
[2022-01-12] MEDS: HEPARIN SODIUM,PORCINE 5,000 UNITS/ML VIAL SQ SCH ×3 (08:06→23:17)
[2022-01-12] MEDS: FAMOTIDINE 20 MG TABLET PO SCH (08:07)
[2022-01-12] MEDS: MULTIVITAMINS, THERAPEUTIC TABLET PO SCH (08:07)
[2022-01-12] MEDS: LOSARTAN POTASSIUM 25 MG TABLET PO SCH (08:07)
[2022-01-12] MEDS ORDERED: SODIUM CHLORIDE 0.9% 500 ML IV ONE (08:08)
[2022-01-12] MEDS: CHOLECALCIFEROL (VIT D3) 5,000 [125 MCG] UNITS CAPSULE PO SCH (08:08)
[2022-01-12] MEDS: OxyCODONE HCL/ACETAMINOPHEN 5-325 MG TABLET PO PRN ×3 (09:03→20:07)
[2022-01-12 12:11] LABS: GLUCOMETER DEV NAME(LOC) 6N.1; GLUCOSE,POINT OF CARE 132 MG/DL (70-110)
[2022-01-12 12:11] LABS: GLUCOMETER DEV NAME(LOC) 6N.1; GLUCOSE,POINT OF CARE 144 MG/DL (70-110)
[2022-01-12] MEDS: INSULIN LISPRO 100 UNITS/ML SQ PRN ×2 (12:26→17:43)
[2022-01-12 15:38] VITALS: BP 146/90
[2022-01-12 19:26] VITALS: BP 140/88
[2022-01-12] MEDS: ZOLPIDEM TARTRATE 5 MG TABLET PO PRN (20:06)
[2022-01-12 20:11] LABS: GLUCOMETER DEV NAME(LOC) 6N.2; GLUCOSE,POINT OF CARE 97 MG/DL (70-110)
[2022-01-12 20:11] LABS: GLUCOMETER DEV NAME(LOC) 6N.1; GLUCOSE,POINT OF CARE 146 MG/DL (70-110)
[2022-01-12] MEDS: POTASSIUM CHL 10 MEQ/WATER 50 ML IV PRN ×3 (21:12→23:45)
[2022-01-13] MEDS: NAFCILLIN SODIUM 2 GM in DEXTROSE 5%-WATER 100 ML IV SCH ×7 (00:53→23:58)
[2022-01-13] MEDS: OxyCODONE HCL/ACETAMINOPHEN 5-325 MG TABLET PO PRN ×4 (04:47→19:50)
[2022-01-13 05:11] VITALS: BP 133/83
[2022-01-13] MEDS: DiphenhydrAMINE HCL 50 MG/ML VIAL IVP PRN (06:05)
[2022-01-13 06:12] LABS: GLUCOMETER DEV NAME(LOC) 6S.1B; GLUCOSE,POINT OF CARE 107 MG/DL (70-110)
[2022-01-13 07:46] VITALS: BP 144/81
[2022-01-13] MEDS: HEPARIN SODIUM,PORCINE 5,000 UNITS/ML VIAL SQ SCH ×3 (08:20→23:47)
[2022-01-13] MEDS: FAMOTIDINE 20 MG TABLET PO SCH (08:20)
[2022-01-13] MEDS: LOSARTAN POTASSIUM 25 MG TABLET PO SCH (08:21)
[2022-01-13] MEDS: CHOLECALCIFEROL (VIT D3) 5,000 [125 MCG] UNITS CAPSULE PO SCH (08:21)
[2022-01-13] MEDS: MULTIVITAMINS, THERAPEUTIC TABLET PO SCH (08:21)
[2022-01-13] MEDS: DOCUSATE SODIUM 100 MG CAPSULE PO SCH ×3 (08:38→20:23)
[2022-01-13 15:40] VITALS: BP 134/89
[2022-01-13 18:41] LABS: GLUCOMETER DEV NAME(LOC) 6N.1; GLUCOSE,POINT OF CARE 128 MG/DL (70-110)
[2022-01-13 18:41] LABS: GLUCOMETER DEV NAME(LOC) 6N.2; GLUCOSE,POINT OF CARE 137 MG/DL (70-110)
[2022-01-13 19:35] VITALS: BP 134/88
[2022-01-13] MEDS: TraZODone HCL 50 MG TABLET PO SCH (20:22)
[2022-01-13] MEDS: ZOLPIDEM TARTRATE 5 MG TABLET PO PRN (23:58)
[2022-01-14 01:06] LABS: GLUCOMETER DEV NAME(LOC) 6N.1; GLUCOSE,POINT OF CARE 118 MG/DL (70-110)
[2022-01-14 03:23] VITALS: BP 134/89
[2022-01-14] MEDS: NAFCILLIN SODIUM 2 GM in DEXTROSE 5%-WATER 100 ML IV SCH ×5 (03:59→20:18)
[2022-01-14] MEDS ORDERED: SODIUM CHLORIDE 0.9% 500 ML IV ONE (05:09)
[2022-01-14] MEDS: OxyCODONE HCL/ACETAMINOPHEN 5-325 MG TABLET PO PRN ×4 (05:27→20:12)
[2022-01-14 08:00] VITALS: BP 145/93
[2022-01-14] MEDS: HEPARIN SODIUM,PORCINE 5,000 UNITS/ML VIAL SQ SCH ×2 (08:44→16:47)
[2022-01-14] MEDS: FAMOTIDINE 20 MG TABLET PO SCH (08:44)
[2022-01-14] MEDS: LOSARTAN POTASSIUM 25 MG TABLET PO SCH (08:44)
[2022-01-14] MEDS: MULTIVITAMINS, THERAPEUTIC TABLET PO SCH (08:44)
[2022-01-14] MEDS: DOCUSATE SODIUM 100 MG CAPSULE PO SCH ×3 (08:44→20:13)
[2022-01-14] MEDS: CHOLECALCIFEROL (VIT D3) 5,000 [125 MCG] UNITS CAPSULE PO SCH (08:45)
[2022-01-14 12:46] LABS: GLUCOMETER DEV NAME(LOC) 6N.1; GLUCOSE,POINT OF CARE 119 MG/DL (70-110)
[2022-01-14 16:38] VITALS: BP 138/82
[2022-01-14 20:06] LABS: GLUCOMETER DEV NAME(LOC) 6S.1B; GLUCOSE,POINT OF CARE 123 MG/DL (70-110)
[2022-01-14 20:10] VITALS: BP 138/88
[2022-01-14] MEDS: TraZODone HCL 50 MG TABLET PO SCH (20:12)
[2022-01-14 20:41] LABS: GLUCOMETER DEV NAME(LOC) 6N.2; GLUCOSE,POINT OF CARE 96 MG/DL (70-110)
[2022-01-15] MEDS: HEPARIN SODIUM,PORCINE 5,000 UNITS/ML VIAL SQ SCH ×3 (00:01→16:25)
[2022-01-15] MEDS: NAFCILLIN SODIUM 2 GM in DEXTROSE 5%-WATER 100 ML IV SCH ×6 (00:01→20:09)
[2022-01-15] MEDS: ZOLPIDEM TARTRATE 5 MG TABLET PO PRN ×2 (00:05→20:26)
[2022-01-15 01:31] LABS: GLUCOMETER DEV NAME(LOC) 6N.1; GLUCOSE,POINT OF CARE 122 MG/DL (70-110)
[2022-01-15 02:47] VITALS: BP 140/93
[2022-01-15] MEDS: OxyCODONE HCL/ACETAMINOPHEN 5-325 MG TABLET PO PRN ×4 (02:49→20:26)
[2022-01-15 04:50] VITALS: BP 118/79
[2022-01-15 07:18] LABS: BASOPHILS % (AUTO) 0.8 % (0.0-2.0); HEMOGLOBIN 8.9 g/dL (13.5-17.5); LYMPHOCYTES # (AUTO) 1.6 K/uL (1.0-4.8); LYMPHOCYTES % (AUTO) 31.4 % (22.0-44.0); MEAN CORPUSCULAR HEMOGLOBIN 32.6 pg (26.0-34.0); MEAN CORPUSCULAR HGB CONC 35.4 G/dL (31.0-37.0); MEAN CORPUSCULAR VOLUME 92 fL (80-100); MONOCYTES # (AUTO) 0.4 K/uL (0.1-1.0); MONOCYTES % (AUTO) 6.9 % (2.0-9.0); NEUTROPHILS # (AUTO) 2.8 K/uL (1.8-7.7); NEUTROPHILS % (AUTO) 53.9 % (40.0-70.0); PLATELET COUNT (AUTO) 182 K/uL (150-450); RED BLOOD CELL COUNT(AUTO) 2.72 MIL/uL (4.50-5.90); RED CELL DISTRIBUTION WIDTH 20.5 % (11.5-14.5)
[2022-01-15 07:41] LABS: ALANINE AMINOTRANSFERASE 9 U/L (12-78); ALBUMIN 1.7 g/dL (3.4-5.0); ALKALINE PHOSPHATASE 78 U/L (46-116); ANION GAP 8 mmol/L (8-16); ASPARTATE AMINOTRANSFERASE 14 U/L (15-37); BILIRUBIN,TOTAL 0.9 mg/dL (0.1-1.0); CALCIUM, TOTAL 8.7 mg/dL (8.8-10.5); CARBON DIOXIDE 27 mmol/L (22-29); CHLORIDE 105 mmol/L (98-107); CREATININE 0.87 mg/dL (0.60-1.30); GLOMERULAR FILTR. RATE CALC > 60 mL/min (>60); GLUCOSE,RANDOM 91 mg/dL (70-110); POTASSIUM 3.7 mmol/L (3.5-5.1); SODIUM SERUM 140 mmol/L (136-145); TOTAL PROTEIN, SERUM 6.5 g/dL (6.4-8.2); UREA NITROGEN, BLOOD 18 mg/dL (7-18)
[2022-01-15] MEDS: MULTIVITAMINS, THERAPEUTIC TABLET PO SCH (08:07)
[2022-01-15] MEDS: FAMOTIDINE 20 MG TABLET PO SCH (08:07)
[2022-01-15] MEDS: DOCUSATE SODIUM 100 MG CAPSULE PO SCH ×3 (08:08→20:15)
[2022-01-15] MEDS: LOSARTAN POTASSIUM 25 MG TABLET PO SCH (08:08)
[2022-01-15] MEDS: CHOLECALCIFEROL (VIT D3) 5,000 [125 MCG] UNITS CAPSULE PO SCH (08:08)
[2022-01-15 08:37] VITALS: BP 134/86
[2022-01-15 12:01] LABS: GLUCOMETER DEV NAME(LOC) 6S.1B; GLUCOSE,POINT OF CARE 91 MG/DL (70-110)
[2022-01-15 16:51] LABS: GLUCOMETER DEV NAME(LOC) 6N.2; GLUCOSE,POINT OF CARE 124 MG/DL (70-110)
[2022-01-15 19:08] VITALS: BP 134/83
[2022-01-15 19:16] LABS: GLUCOMETER DEV NAME(LOC) 6N.1; GLUCOSE,POINT OF CARE 89 MG/DL (70-110)
[2022-01-15 19:50] VITALS: BP 132/86
[2022-01-15] MEDS: TraZODone HCL 50 MG TABLET PO SCH (20:27)
[2022-01-16] MEDS: NAFCILLIN SODIUM 2 GM in DEXTROSE 5%-WATER 100 ML IV SCH ×6 (00:44→20:26)
[2022-01-16 04:30] VITALS: BP 146/82
[2022-01-16] MEDS: OxyCODONE HCL/ACETAMINOPHEN 5-325 MG TABLET PO PRN ×4 (05:16→22:24)
[2022-01-16 06:41] LABS: GLUCOMETER DEV NAME(LOC) 6S.1B; GLUCOSE,POINT OF CARE 91 MG/DL (70-110)
[2022-01-16 07:06] LABS: GLUCOMETER DEV NAME(LOC) 6N.2; GLUCOSE,POINT OF CARE 97 MG/DL (70-110)
[2022-01-16 08:00] VITALS: BP 144/95
[2022-01-16] MEDS: HEPARIN SODIUM,PORCINE 5,000 UNITS/ML VIAL SQ SCH ×3 (09:08→16:37)
[2022-01-16] MEDS: DOCUSATE SODIUM 100 MG CAPSULE PO SCH ×3 (09:09→20:26)
[2022-01-16] MEDS: FAMOTIDINE 20 MG TABLET PO SCH (09:09)
[2022-01-16] MEDS: LOSARTAN POTASSIUM 25 MG TABLET PO SCH (09:09)
[2022-01-16] MEDS: MULTIVITAMINS, THERAPEUTIC TABLET PO SCH (09:09)
[2022-01-16] MEDS: CHOLECALCIFEROL (VIT D3) 5,000 [125 MCG] UNITS CAPSULE PO SCH (09:15)
[2022-01-16 12:16] LABS: GLUCOMETER DEV NAME(LOC) 6S.1B; GLUCOSE,POINT OF CARE 88 MG/DL (70-110)
[2022-01-16 16:00] VITALS: BP 124/87
[2022-01-16 17:31] LABS: GLUCOMETER DEV NAME(LOC) 6N.1; GLUCOSE,POINT OF CARE 123 MG/DL (70-110)
[2022-01-16 20:12] VITALS: BP 134/85
[2022-01-16] MEDS: ZOLPIDEM TARTRATE 5 MG TABLET PO PRN (20:26)
[2022-01-16] MEDS: TraZODone HCL 50 MG TABLET PO SCH (20:27)
[2022-01-16] MEDS: MELATONIN 5 MG TABLET PO PRN (22:24)
[2022-01-17 01:31] LABS: GLUCOMETER DEV NAME(LOC) 6N.1; GLUCOSE,POINT OF CARE 121 MG/DL (70-110)
[2022-01-17] MEDS: NAFCILLIN SODIUM 2 GM in DEXTROSE 5%-WATER 100 ML IV SCH ×7 (03:45→20:34)
[2022-01-17 04:45] VITALS: BP 118/75
[2022-01-17 07:01] LABS: GLUCOMETER DEV NAME(LOC) 6N.2; GLUCOSE,POINT OF CARE 94 MG/DL (70-110)
[2022-01-17 08:08] VITALS: BP 141/90
[2022-01-17] MEDS: DOCUSATE SODIUM 100 MG CAPSULE PO SCH ×3 (08:10→20:34)
[2022-01-17] MEDS: FAMOTIDINE 20 MG TABLET PO SCH (08:10)
[2022-01-17] MEDS: HEPARIN SODIUM,PORCINE 5,000 UNITS/ML VIAL SQ SCH ×3 (08:10→15:48)
[2022-01-17] MEDS: MULTIVITAMINS, THERAPEUTIC TABLET PO SCH (08:10)
[2022-01-17] MEDS: LOSARTAN POTASSIUM 25 MG TABLET PO SCH (08:10)
[2022-01-17] MEDS: CHOLECALCIFEROL (VIT D3) 5,000 [125 MCG] UNITS CAPSULE PO SCH (08:10)
[2022-01-17] MEDS: INSULIN LISPRO 100 UNITS/ML SQ PRN ×2 (11:45→20:46)
[2022-01-17 11:55] LABS: GLUCOMETER DEV NAME(LOC) 6N.2; GLUCOSE,POINT OF CARE 142 MG/DL (70-110)
[2022-01-17 17:11] LABS: GLUCOMETER DEV NAME(LOC) 6N.2; GLUCOSE,POINT OF CARE 110 MG/DL (70-110)
[2022-01-17 19:41] VITALS: BP 137/68
[2022-01-17] MEDS: TraZODone HCL 50 MG TABLET PO SCH (20:33)
[2022-01-17] MEDS: OxyCODONE HCL/ACETAMINOPHEN 5-325 MG TABLET PO PRN (20:34)
[2022-01-17] MEDS: ZOLPIDEM TARTRATE 5 MG TABLET PO PRN (21:14)
[2022-01-17 21:21] LABS: GLUCOMETER DEV NAME(LOC) 6N.1; GLUCOSE,POINT OF CARE 94 MG/DL (70-110)
[2022-01-18] MEDS: NAFCILLIN SODIUM 2 GM in DEXTROSE 5%-WATER 100 ML IV SCH ×7 (00:02→23:24)
[2022-01-18] MEDS: HEPARIN SODIUM,PORCINE 5,000 UNITS/ML VIAL SQ SCH ×4 (00:02→23:21)
[2022-01-18 04:43] VITALS: BP 136/88
[2022-01-18] MEDS: INSULIN LISPRO 100 UNITS/ML SQ PRN ×3 (05:54→20:40)
[2022-01-18 06:07] LABS: GLUCOMETER DEV NAME(LOC) 6N.2; GLUCOSE,POINT OF CARE 84 MG/DL (70-110)
[2022-01-18] MEDS ORDERED: SODIUM CHLORIDE 0.9% 250 ML IV ONE (07:57)
[2022-01-18] MEDS: DOCUSATE SODIUM 100 MG CAPSULE PO SCH ×2 (08:06→09:00)
[2022-01-18] MEDS: LOSARTAN POTASSIUM 25 MG TABLET PO SCH (08:06)
[2022-01-18] MEDS: FAMOTIDINE 20 MG TABLET PO SCH (08:07)
[2022-01-18] MEDS: MULTIVITAMINS, THERAPEUTIC TABLET PO SCH (08:07)
[2022-01-18] MEDS: CHOLECALCIFEROL (VIT D3) 5,000 [125 MCG] UNITS CAPSULE PO SCH (08:08)
[2022-01-18] MEDS: OxyCODONE HCL/ACETAMINOPHEN 5-325 MG TABLET PO PRN ×3 (08:09→20:24)
[2022-01-18 10:07] VITALS: BP 143/92
[2022-01-18 18:27] VITALS: BP 139/87
[2022-01-18 19:45] VITALS: BP 142/89
[2022-01-18] MEDS: TraZODone HCL 50 MG TABLET PO SCH (20:24)
[2022-01-18 20:36] LABS: GLUCOMETER DEV NAME(LOC) 6N.2; GLUCOSE,POINT OF CARE 136 MG/DL (70-110)
[2022-01-18 20:36] LABS: GLUCOMETER DEV NAME(LOC) 6N.2; GLUCOSE,POINT OF CARE 102 MG/DL (70-110)
[2022-01-18 20:56] LABS: GLUCOMETER DEV NAME(LOC) 6S.1B; GLUCOSE,POINT OF CARE 160 MG/DL (70-110)
[2022-01-18] MEDS: ZOLPIDEM TARTRATE 5 MG TABLET PO PRN (23:21)
[2022-01-19] MEDS: NAFCILLIN SODIUM 2 GM in DEXTROSE 5%-WATER 100 ML IV SCH ×5 (03:41→21:08)
[2022-01-19 04:35] VITALS: BP 134/86
[2022-01-19 06:06] LABS: GLUCOMETER DEV NAME(LOC) 6N.1; GLUCOSE,POINT OF CARE 100 MG/DL (70-110)
[2022-01-19] MEDS ORDERED: SODIUM CHLORIDE 0.9% 250 ML IV ONE (07:18)
[2022-01-19 07:23] VITALS: BP 147/92
[2022-01-19 07:30] LABS: BASOPHILS % (AUTO) 0.9 % (0.0-2.0); EOSINOPHILS % (AUTO) 8.1 % (1.0-6.0); HEMATOCRIT 26.8 % (41-53); HEMOGLOBIN 9.4 g/dL (13.5-17.5); LYMPHOCYTES # (AUTO) 1.4 K/uL (1.0-4.8); LYMPHOCYTES % (AUTO) 32.5 % (22.0-44.0); MEAN CORPUSCULAR HEMOGLOBIN 32.5 pg (26.0-34.0); MEAN CORPUSCULAR HGB CONC 35.2 G/dL (31.0-37.0); MEAN CORPUSCULAR VOLUME 93 fL (80-100); MONOCYTES # (AUTO) 0.4 K/uL (0.1-1.0); MONOCYTES % (AUTO) 7.9 % (2.0-9.0); NEUTROPHILS # (AUTO) 2.2 K/uL (1.8-7.7); NEUTROPHILS % (AUTO) 50.6 % (40.0-70.0); PLATELET COUNT (AUTO) 181 K/uL (150-450); RED BLOOD CELL COUNT(AUTO) 2.89 MIL/uL (4.50-5.90); RED CELL DISTRIBUTION WIDTH 20.4 % (11.5-14.5)
[2022-01-19 07:47] LABS: ALANINE AMINOTRANSFERASE 11 U/L (12-78); ALBUMIN 1.8 g/dL (3.4-5.0); ALKALINE PHOSPHATASE 79 U/L (46-116); ANION GAP 6 mmol/L (8-16); ASPARTATE AMINOTRANSFERASE 15 U/L (15-37); CALCIUM, TOTAL 8.8 mg/dL (8.8-10.5); CARBON DIOXIDE 27 mmol/L (22-29); CHLORIDE 106 mmol/L (98-107); CREATININE 0.85 mg/dL (0.60-1.30); GLOMERULAR FILTR. RATE CALC > 60 mL/min (>60); GLUCOSE,RANDOM 98 mg/dL (70-110); POTASSIUM 3.4 mmol/L (3.5-5.1); SODIUM SERUM 139 mmol/L (136-145); TOTAL PROTEIN, SERUM 6.8 g/dL (6.4-8.2); UREA NITROGEN, BLOOD 18 mg/dL (7-18)
[2022-01-19] MEDS: FAMOTIDINE 20 MG TABLET PO SCH (08:51)
[2022-01-19] MEDS: MULTIVITAMINS, THERAPEUTIC TABLET PO SCH (08:52)
[2022-01-19] MEDS: POTASSIUM CHLORIDE 20 MEQ ER TABLET PO PRN (08:52)
[2022-01-19] MEDS: LOSARTAN POTASSIUM 25 MG TABLET PO SCH (08:53)
[2022-01-19] MEDS: CHOLECALCIFEROL (VIT D3) 5,000 [125 MCG] UNITS CAPSULE PO SCH (08:53)
[2022-01-19] MEDS: HEPARIN SODIUM,PORCINE 5,000 UNITS/ML VIAL SQ SCH ×2 (08:54→17:15)
[2022-01-19] MEDS: OxyCODONE HCL/ACETAMINOPHEN 5-325 MG TABLET PO PRN ×3 (09:48→21:12)
[2022-01-19 15:21] VITALS: BP 134/86
[2022-01-19 17:31] LABS: GLUCOMETER DEV NAME(LOC) 6N.1; GLUCOSE,POINT OF CARE 121 MG/DL (70-110)
[2022-01-19 19:26] LABS: GLUCOMETER DEV NAME(LOC) 6N.1; GLUCOSE,POINT OF CARE 115 MG/DL (70-110)
[2022-01-19 19:45] VITALS: BP 130/94
[2022-01-19] MEDS: TraZODone HCL 50 MG TABLET PO SCH (21:00)
[2022-01-19] MEDS: ZOLPIDEM TARTRATE 5 MG TABLET PO PRN (21:11)
[2022-01-19 23:51] LABS: GLUCOMETER DEV NAME(LOC) 6N.2; GLUCOSE,POINT OF CARE 125 MG/DL (70-110)
[2022-01-20] MEDS: NAFCILLIN SODIUM 2 GM in DEXTROSE 5%-WATER 100 ML IV SCH ×6 (00:07→20:51)
[2022-01-20 04:35] VITALS: BP 122/80
[2022-01-20 07:11] LABS: GLUCOMETER DEV NAME(LOC) 6N.2; GLUCOSE,POINT OF CARE 99 MG/DL (70-110)
[2022-01-20 07:25] VITALS: BP 127/84
[2022-01-20] MEDS: CHOLECALCIFEROL (VIT D3) 5,000 [125 MCG] UNITS CAPSULE PO SCH (08:30)
[2022-01-20] MEDS: LOSARTAN POTASSIUM 25 MG TABLET PO SCH (08:30)
[2022-01-20] MEDS: MULTIVITAMINS, THERAPEUTIC TABLET PO SCH (08:30)
[2022-01-20] MEDS: HEPARIN SODIUM,PORCINE 5,000 UNITS/ML VIAL SQ SCH ×3 (08:30→16:59)
[2022-01-20] MEDS: FAMOTIDINE 20 MG TABLET PO SCH (08:30)
[2022-01-20] MEDS: OxyCODONE HCL/ACETAMINOPHEN 5-325 MG TABLET PO PRN ×2 (08:31→20:52)
[2022-01-20] MEDS: ACETAMINOPHEN 325 MG TABLET PO PRN (11:03)
[2022-01-20 11:31] LABS: GLUCOMETER DEV NAME(LOC) 6S.1B; GLUCOSE,POINT OF CARE 97 MG/DL (70-110)
[2022-01-20 15:52] VITALS: BP 130/80
[2022-01-20] MEDS ORDERED: SODIUM CHLORIDE 0.9% 250 ML IV ONE (17:03)
[2022-01-20 17:26] LABS: GLUCOMETER DEV NAME(LOC) 6S.1B; GLUCOSE,POINT OF CARE 113 MG/DL (70-110)
[2022-01-20 20:50] VITALS: BP 130/80
[2022-01-20] MEDS: TraZODone HCL 50 MG TABLET PO SCH (20:51)
[2022-01-20] MEDS: ZOLPIDEM TARTRATE 5 MG TABLET PO PRN (20:52)
[2022-01-20 23:31] LABS: GLUCOMETER DEV NAME(LOC) 6S.1B; GLUCOSE,POINT OF CARE 118 MG/DL (70-110)
[2022-01-21] MEDS: NAFCILLIN SODIUM 2 GM in DEXTROSE 5%-WATER 100 ML IV SCH ×6 (00:17→20:00)
[2022-01-21] MEDS: HEPARIN SODIUM,PORCINE 5,000 UNITS/ML VIAL SQ SCH ×3 (00:17→15:13)
[2022-01-21 04:43] VITALS: BP 142/83
[2022-01-21 06:37] LABS: GLUCOMETER DEV NAME(LOC) 6N.2; GLUCOSE,POINT OF CARE 108 MG/DL (70-110)
[2022-01-21 06:45] LABS: EOSINOPHILS % (AUTO) 7.6 % (1.0-6.0); HEMATOCRIT 27.7 % (41-53); HEMOGLOBIN 9.6 g/dL (13.5-17.5); LYMPHOCYTES # (AUTO) 1.7 K/uL (1.0-4.8); LYMPHOCYTES % (AUTO) 34.5 % (22.0-44.0); MEAN CORPUSCULAR HEMOGLOBIN 32.4 pg (26.0-34.0); MEAN CORPUSCULAR HGB CONC 34.8 G/dL (31.0-37.0); MEAN CORPUSCULAR VOLUME 93 fL (80-100); MONOCYTES # (AUTO) 0.4 K/uL (0.1-1.0); MONOCYTES % (AUTO) 8.2 % (2.0-9.0); NEUTROPHILS # (AUTO) 2.4 K/uL (1.8-7.7); NEUTROPHILS % (AUTO) 48.7 % (40.0-70.0); PLATELET COUNT (AUTO) 175 K/uL (150-450); RED BLOOD CELL COUNT(AUTO) 2.97 MIL/uL (4.50-5.90); RED CELL DISTRIBUTION WIDTH 20.5 % (11.5-14.5)
[2022-01-21] MEDS: MULTIVITAMINS, THERAPEUTIC TABLET PO SCH (08:00)
[2022-01-21] MEDS: LOSARTAN POTASSIUM 25 MG TABLET PO SCH (08:00)
[2022-01-21] MEDS: FAMOTIDINE 20 MG TABLET PO SCH (08:00)
[2022-01-21] MEDS: CHOLECALCIFEROL (VIT D3) 5,000 [125 MCG] UNITS CAPSULE PO SCH (08:00)
[2022-01-21 08:02] VITALS: BP 147/95
[2022-01-21] MEDS: OxyCODONE HCL/ACETAMINOPHEN 5-325 MG TABLET PO PRN ×2 (08:07→20:00)
[2022-01-21 12:11] LABS: GLUCOMETER DEV NAME(LOC) 6N.2; GLUCOSE,POINT OF CARE 94 MG/DL (70-110)
[2022-01-21 15:28] VITALS: BP_SYST 124; BP_SYST 142; BP_DIAS 78; BP_DIAS 84
[2022-01-21] MEDS: INSULIN LISPRO 100 UNITS/ML SQ PRN (17:19)
[2022-01-21 17:26] LABS: GLUCOMETER DEV NAME(LOC) 6N.2; GLUCOSE,POINT OF CARE 152 MG/DL (70-110)
[2022-01-21 19:56] VITALS: BP 132/78
[2022-01-21] MEDS: TraZODone HCL 50 MG TABLET PO SCH (20:01)
[2022-01-21] MEDS: ZOLPIDEM TARTRATE 5 MG TABLET PO PRN (20:01)
[2022-01-22] MEDS: NAFCILLIN SODIUM 2 GM in DEXTROSE 5%-WATER 100 ML IV SCH ×6 (00:23→20:48)
[2022-01-22] MEDS: HEPARIN SODIUM,PORCINE 5,000 UNITS/ML VIAL SQ SCH ×3 (00:28→15:41)
[2022-01-22 04:42] VITALS: BP 145/77
[2022-01-22 04:45] VITALS: BP 129/83
[2022-01-22 06:16] LABS: GLUCOMETER DEV NAME(LOC) 6S.1B; GLUCOSE,POINT OF CARE 136 MG/DL (70-110)
[2022-01-22] MEDS: OxyCODONE HCL/ACETAMINOPHEN 5-325 MG TABLET PO PRN ×3 (06:18→17:14)
[2022-01-22 07:06] LABS: GLUCOMETER DEV NAME(LOC) 6N.2; GLUCOSE,POINT OF CARE 105 MG/DL (70-110)
[2022-01-22] MEDS: FAMOTIDINE 20 MG TABLET PO SCH (08:29)
[2022-01-22] MEDS: LOSARTAN POTASSIUM 25 MG TABLET PO SCH (08:29)
[2022-01-22] MEDS: MULTIVITAMINS, THERAPEUTIC TABLET PO SCH (08:30)
[2022-01-22] MEDS: CHOLECALCIFEROL (VIT D3) 5,000 [125 MCG] UNITS CAPSULE PO SCH (08:30)
[2022-01-22] MEDS ORDERED: SODIUM CHLORIDE 0.9% 250 ML IV ONE (08:40)
[2022-01-22 09:12] VITALS: BP 135/83
[2022-01-22 12:11] LABS: GLUCOMETER DEV NAME(LOC) 6N.2; GLUCOSE,POINT OF CARE 116 MG/DL (70-110)
[2022-01-22 17:27] VITALS: BP 138/84
[2022-01-22 20:24] VITALS: BP 135/88
[2022-01-22] MEDS: TraZODone HCL 50 MG TABLET PO SCH (21:15)
[2022-01-22] MEDS: INSULIN LISPRO 100 UNITS/ML SQ PRN (21:17)
[2022-01-22 22:46] LABS: GLUCOMETER DEV NAME(LOC) 6S.1B; GLUCOSE,POINT OF CARE 139 MG/DL (70-110)
[2022-01-22 22:46] LABS: GLUCOMETER DEV NAME(LOC) 6S.1B; GLUCOSE,POINT OF CARE 159 MG/DL (70-110)
[2022-01-23] MEDS: NAFCILLIN SODIUM 2 GM in DEXTROSE 5%-WATER 100 ML IV SCH ×7 (00:29→23:56)
[2022-01-23] MEDS: HEPARIN SODIUM,PORCINE 5,000 UNITS/ML VIAL SQ SCH ×4 (00:30→23:56)
[2022-01-23 05:31] VITALS: BP 120/76
[2022-01-23] MEDS: OxyCODONE HCL/ACETAMINOPHEN 5-325 MG TABLET PO PRN ×3 (06:12→15:53)
[2022-01-23 06:41] LABS: GLUCOMETER DEV NAME(LOC) 6N.2; GLUCOSE,POINT OF CARE 120 MG/DL (70-110)
[2022-01-23 08:00] VITALS: BP 132/81
[2022-01-23] MEDS: CHOLECALCIFEROL (VIT D3) 5,000 [125 MCG] UNITS CAPSULE PO SCH (08:21)
[2022-01-23] MEDS: MULTIVITAMINS, THERAPEUTIC TABLET PO SCH (08:21)
[2022-01-23] MEDS: LOSARTAN POTASSIUM 25 MG TABLET PO SCH (08:21)
[2022-01-23] MEDS: FAMOTIDINE 20 MG TABLET PO SCH (08:21)
[2022-01-23 15:15] VITALS: BP 134/88
[2022-01-23 16:51] LABS: GLUCOMETER DEV NAME(LOC) 6S.1B; GLUCOSE,POINT OF CARE 134 MG/DL (70-110)
[2022-01-23 17:26] LABS: GLUCOMETER DEV NAME(LOC) 6N.2; GLUCOSE,POINT OF CARE 131 MG/DL (70-110)
[2022-01-23] MEDS: TraZODone HCL 50 MG TABLET PO SCH (20:31)
[2022-01-23 20:52] VITALS: BP 129/85
[2022-01-23 21:56] LABS: GLUCOMETER DEV NAME(LOC) 6S.1B; GLUCOSE,POINT OF CARE 114 MG/DL (70-110)
[2022-01-24] MEDS: NAFCILLIN SODIUM 2 GM in DEXTROSE 5%-WATER 100 ML IV SCH ×5 (04:03→20:36)
[2022-01-24 05:30] VITALS: BP 125/85
[2022-01-24] MEDS ORDERED: SODIUM CHLORIDE 0.9% 250 ML IV ONE (06:07)
[2022-01-24 07:10] LABS: GLUCOMETER DEV NAME(LOC) 6N.2; GLUCOSE,POINT OF CARE 113 MG/DL (70-110)
[2022-01-24] MEDS: MULTIVITAMINS, THERAPEUTIC TABLET PO SCH (08:15)
[2022-01-24] MEDS: FAMOTIDINE 20 MG TABLET PO SCH (08:16)
[2022-01-24] MEDS: HEPARIN SODIUM,PORCINE 5,000 UNITS/ML VIAL SQ SCH ×2 (08:16→15:22)
[2022-01-24] MEDS: LOSARTAN POTASSIUM 25 MG TABLET PO SCH (08:16)
[2022-01-24 08:22] VITALS: BP 152/97
[2022-01-24] MEDS: CHOLECALCIFEROL (VIT D3) 5,000 [125 MCG] UNITS CAPSULE PO SCH (08:44)
[2022-01-24 12:26] LABS: GLUCOMETER DEV NAME(LOC) 6S.1B; GLUCOSE,POINT OF CARE 127 MG/DL (70-110)
[2022-01-24] MEDS: OxyCODONE HCL/ACETAMINOPHEN 5-325 MG TABLET PO PRN ×2 (15:13→20:35)
[2022-01-24 16:14] VITALS: BP 146/95
[2022-01-24 18:16] LABS: GLUCOMETER DEV NAME(LOC) 6S.1B; GLUCOSE,POINT OF CARE 137 MG/DL (70-110)
[2022-01-24 19:55] VITALS: BP 136/90
[2022-01-24] MEDS: TraZODone HCL 50 MG TABLET PO SCH (20:35)
[2022-01-24] MEDS: MELATONIN 5 MG TABLET PO PRN (20:35)
[2022-01-24] MEDS: INSULIN LISPRO 100 UNITS/ML SQ PRN (20:38)
[2022-01-24 21:41] LABS: GLUCOMETER DEV NAME(LOC) 6N.2; GLUCOSE,POINT OF CARE 166 MG/DL (70-110)
[2022-01-25] MEDS: HEPARIN SODIUM,PORCINE 5,000 UNITS/ML VIAL SQ SCH ×3 (00:13→15:52)
[2022-01-25] MEDS: NAFCILLIN SODIUM 2 GM in DEXTROSE 5%-WATER 100 ML IV SCH ×6 (00:13→20:14)
[2022-01-25 04:15] VITALS: BP 126/85
[2022-01-25] MEDS ORDERED: SODIUM CHLORIDE 0.9% 250 ML IV ONE (05:02)
[2022-01-25 07:07] LABS: GLUCOMETER DEV NAME(LOC) 6N.2; GLUCOSE,POINT OF CARE 117 MG/DL (70-110)
[2022-01-25 07:49] VITALS: BP 142/82
[2022-01-25] MEDS: OxyCODONE HCL/ACETAMINOPHEN 5-325 MG TABLET PO PRN ×3 (07:52→17:46)
[2022-01-25] MEDS: LOSARTAN POTASSIUM 25 MG TABLET PO SCH (07:56)
[2022-01-25] MEDS: FAMOTIDINE 20 MG TABLET PO SCH (07:56)
[2022-01-25] MEDS: MULTIVITAMINS, THERAPEUTIC TABLET PO SCH (07:57)
[2022-01-25] MEDS: CHOLECALCIFEROL (VIT D3) 5,000 [125 MCG] UNITS CAPSULE PO SCH (07:57)
[2022-01-25 12:21] LABS: GLUCOMETER DEV NAME(LOC) 6S.1B; GLUCOSE,POINT OF CARE 122 MG/DL (70-110)
[2022-01-25 17:35] VITALS: BP 145/97
[2022-01-25] MEDS: TraZODone HCL 50 MG TABLET PO SCH (20:14)
[2022-01-25 20:18] VITALS: BP 138/93
[2022-01-25 23:21] LABS: GLUCOMETER DEV NAME(LOC) 6S.1B; GLUCOSE,POINT OF CARE 135 MG/DL (70-110)
[2022-01-26] MEDS: NAFCILLIN SODIUM 2 GM in DEXTROSE 5%-WATER 100 ML IV SCH ×6 (03:25→20:44)
[2022-01-26] MEDS: OxyCODONE HCL/ACETAMINOPHEN 5-325 MG TABLET PO PRN ×2 (03:30→15:42)
[2022-01-26 04:16] VITALS: BP 142/94
[2022-01-26 06:15] LABS: BASOPHILS % (AUTO) 0.5 % (0.0-2.0); EOSINOPHILS % (AUTO) 6.2 % (1.0-6.0); HEMATOCRIT 28.5 % (41-53); LYMPHOCYTES # (AUTO) 1.2 K/uL (1.0-4.8); LYMPHOCYTES % (AUTO) 20.1 % (22.0-44.0); MEAN CORPUSCULAR HEMOGLOBIN 32.6 pg (26.0-34.0); MEAN CORPUSCULAR HGB CONC 35.1 G/dL (31.0-37.0); MEAN CORPUSCULAR VOLUME 93 fL (80-100); MONOCYTES # (AUTO) 0.4 K/uL (0.1-1.0); MONOCYTES % (AUTO) 6.2 % (2.0-9.0); NEUTROPHILS # (AUTO) 4.1 K/uL (1.8-7.7); PLATELET COUNT (AUTO) 174 K/uL (150-450); RED BLOOD CELL COUNT(AUTO) 3.06 MIL/uL (4.50-5.90); RED CELL DISTRIBUTION WIDTH 19.2 % (11.5-14.5)
[2022-01-26 06:35] LABS: ALANINE AMINOTRANSFERASE 17 U/L (12-78); ALKALINE PHOSPHATASE 74 U/L (46-116); ANION GAP 4 mmol/L (8-16); ASPARTATE AMINOTRANSFERASE 17 U/L (15-37); C-REACTIVE PROTEIN QUANT 1.35 mg/dL (0.00-0.30); CALCIUM, TOTAL 9.1 mg/dL (8.8-10.5); CARBON DIOXIDE 30 mmol/L (22-29); CHLORIDE 105 mmol/L (98-107); CREATININE 0.89 mg/dL (0.60-1.30); GLOMERULAR FILTR. RATE CALC > 60 mL/min (>60); GLUCOSE,RANDOM 116 mg/dL (70-110); POTASSIUM 4.1 mmol/L (3.5-5.1); SODIUM SERUM 139 mmol/L (136-145); TOTAL PROTEIN, SERUM 7.2 g/dL (6.4-8.2); UREA NITROGEN, BLOOD 22 mg/dL (7-18)
[2022-01-26 07:01] LABS: GLUCOMETER DEV NAME(LOC) 6N.2; GLUCOSE,POINT OF CARE 102 MG/DL (70-110)
[2022-01-26 07:55] VITALS: BP 145/98
[2022-01-26] MEDS: HEPARIN SODIUM,PORCINE 5,000 UNITS/ML VIAL SQ SCH ×3 (08:17→15:42)
[2022-01-26] MEDS: CHOLECALCIFEROL (VIT D3) 5,000 [125 MCG] UNITS CAPSULE PO SCH (08:18)
[2022-01-26] MEDS: FAMOTIDINE 20 MG TABLET PO SCH (08:18)
[2022-01-26] MEDS: MULTIVITAMINS, THERAPEUTIC TABLET PO SCH (08:18)
[2022-01-26] MEDS: LOSARTAN POTASSIUM 25 MG TABLET PO SCH (08:19)
[2022-01-26 14:07] LABS: GLUCOMETER DEV NAME(LOC) 6N.2; GLUCOSE,POINT OF CARE 109 MG/DL (70-110)
[2022-01-26 15:10] VITALS: BP 141/92
[2022-01-26 18:30] LABS: GLUCOMETER DEV NAME(LOC) 6N.1; GLUCOSE,POINT OF CARE 126 MG/DL (70-110)
[2022-01-26 19:25] VITALS: BP 142/97
[2022-01-26 19:31] LABS: GLUCOMETER DEV NAME(LOC) 6S.1B; GLUCOSE,POINT OF CARE 126 MG/DL (70-110)
[2022-01-26] MEDS: TraZODone HCL 50 MG TABLET PO SCH (20:44)
[2022-01-26] MEDS: ZOLPIDEM TARTRATE 10 MG TABLET PO PRN (20:44)
[2022-01-26 23:36] LABS: GLUCOMETER DEV NAME(LOC) 6S.1B; GLUCOSE,POINT OF CARE 133 MG/DL (70-110)
[2022-01-27] MEDS: NAFCILLIN SODIUM 2 GM in DEXTROSE 5%-WATER 100 ML IV SCH ×7 (00:28→23:44)
[2022-01-27] MEDS: HEPARIN SODIUM,PORCINE 5,000 UNITS/ML VIAL SQ SCH ×4 (00:29→23:44)
[2022-01-27 06:01] VITALS: BP 137/74
[2022-01-27 07:30] LABS: GLUCOMETER DEV NAME(LOC) 6S.1B; GLUCOSE,POINT OF CARE 103 MG/DL (70-110)
[2022-01-27] MEDS: OxyCODONE HCL/ACETAMINOPHEN 5-325 MG TABLET PO PRN ×3 (08:34→20:49)
[2022-01-27] MEDS: LOSARTAN POTASSIUM 25 MG TABLET PO SCH (09:05)
[2022-01-27] MEDS: CHOLECALCIFEROL (VIT D3) 5,000 [125 MCG] UNITS CAPSULE PO SCH (09:06)
[2022-01-27] MEDS: FAMOTIDINE 20 MG TABLET PO SCH (09:06)
[2022-01-27] MEDS: MULTIVITAMINS, THERAPEUTIC TABLET PO SCH (09:06)
[2022-01-27 09:27] VITALS: BP 116/66
[2022-01-27 12:01] LABS: GLUCOMETER DEV NAME(LOC) 6N.1; GLUCOSE,POINT OF CARE 123 MG/DL (70-110)
[2022-01-27 16:15] VITALS: BP 117/79
[2022-01-27] MEDS: INSULIN LISPRO 100 UNITS/ML SQ PRN ×2 (17:12→20:59)
[2022-01-27] MEDS: SIMETHICONE 80 MG CHEWABLE TABLET CHEW PRN (17:41)
[2022-01-27 19:36] LABS: GLUCOMETER DEV NAME(LOC) 6N.2; GLUCOSE,POINT OF CARE 142 MG/DL (70-110)
[2022-01-27 19:43] VITALS: BP 142/89
[2022-01-27] MEDS: TraZODone HCL 50 MG TABLET PO SCH (20:49)
[2022-01-27] MEDS: ZOLPIDEM TARTRATE 10 MG TABLET PO PRN (20:49)
[2022-01-28] MEDS: NAFCILLIN SODIUM 2 GM in DEXTROSE 5%-WATER 100 ML IV SCH ×6 (04:43→23:26)
[2022-01-28] MEDS: OxyCODONE HCL/ACETAMINOPHEN 5-325 MG TABLET PO PRN ×2 (04:48→12:17)
[2022-01-28 05:30] VITALS: BP 137/85
[2022-01-28 06:46] LABS: GLUCOMETER DEV NAME(LOC) 6N.2; GLUCOSE,POINT OF CARE 144 MG/DL (70-110)
[2022-01-28 07:21] LABS: GLUCOMETER DEV NAME(LOC) 6N.1; GLUCOSE,POINT OF CARE 122 MG/DL (70-110)
[2022-01-28 08:03] VITALS: BP 133/84
[2022-01-28] MEDS: MULTIVITAMINS, THERAPEUTIC TABLET PO SCH (08:12)
[2022-01-28] MEDS: FAMOTIDINE 20 MG TABLET PO SCH (08:12)
[2022-01-28] MEDS: LOSARTAN POTASSIUM 25 MG TABLET PO SCH (08:13)
[2022-01-28] MEDS: CHOLECALCIFEROL (VIT D3) 5,000 [125 MCG] UNITS CAPSULE PO SCH (08:13)
[2022-01-28] MEDS: SIMETHICONE 80 MG CHEWABLE TABLET CHEW PRN (08:13)
[2022-01-28] MEDS: HEPARIN SODIUM,PORCINE 5,000 UNITS/ML VIAL SQ SCH ×3 (08:13→23:26)
[2022-01-28 12:31] LABS: GLUCOMETER DEV NAME(LOC) 6N.2; GLUCOSE,POINT OF CARE 126 MG/DL (70-110)
[2022-01-28] MEDS ORDERED: SODIUM CHLORIDE 0.9% 250 ML IV ONE (15:17)
[2022-01-28 16:00] VITALS: BP 141/91
[2022-01-28] MEDS: TraZODone HCL 50 MG TABLET PO SCH (20:14)
[2022-01-28 20:21] LABS: GLUCOMETER DEV NAME(LOC) 6S.1B; GLUCOSE,POINT OF CARE 136 MG/DL (70-110)
[2022-01-28 20:29] VITALS: BP 130/87
[2022-01-28 22:11] LABS: GLUCOMETER DEV NAME(LOC) 6N.1; GLUCOSE,POINT OF CARE 134 MG/DL (70-110)
[2022-01-29] MEDS: NAFCILLIN SODIUM 2 GM in DEXTROSE 5%-WATER 100 ML IV SCH ×6 (03:38→23:07)
[2022-01-29] MEDS: OxyCODONE HCL/ACETAMINOPHEN 5-325 MG TABLET PO PRN ×2 (05:01→19:56)
[2022-01-29 05:11] VITALS: BP 136/87
[2022-01-29] MEDS: SIMETHICONE 80 MG CHEWABLE TABLET CHEW PRN (05:45)
[2022-01-29 07:01] LABS: GLUCOMETER DEV NAME(LOC) 6S.1B; GLUCOSE,POINT OF CARE 130 MG/DL (70-110)
[2022-01-29] MEDS: FAMOTIDINE 20 MG TABLET PO SCH (08:10)
[2022-01-29] MEDS: CHOLECALCIFEROL (VIT D3) 5,000 [125 MCG] UNITS CAPSULE PO SCH (08:11)
[2022-01-29] MEDS: MULTIVITAMINS, THERAPEUTIC TABLET PO SCH (08:11)
[2022-01-29] MEDS: HEPARIN SODIUM,PORCINE 5,000 UNITS/ML VIAL SQ SCH ×3 (08:11→23:07)
[2022-01-29] MEDS: LOSARTAN POTASSIUM 25 MG TABLET PO SCH (08:12)
[2022-01-29 08:42] VITALS: BP 156/100
[2022-01-29 12:01] LABS: GLUCOMETER DEV NAME(LOC) 6N.1; GLUCOSE,POINT OF CARE 123 MG/DL (70-110)
[2022-01-29] MEDS ORDERED: SIMETHICONE 80 MG CHEWABLE TABLET CHEW PRN (14:30)
[2022-01-29 16:03] VITALS: BP 140/95
[2022-01-29] MEDS: INSULIN LISPRO 100 UNITS/ML SQ PRN (17:43)
[2022-01-29 17:51] LABS: GLUCOMETER DEV NAME(LOC) 6N.1; GLUCOSE,POINT OF CARE 145 MG/DL (70-110)
[2022-01-29 19:40] VITALS: BP 137/83
[2022-01-29] MEDS: TraZODone HCL 50 MG TABLET PO SCH (20:03)
[2022-01-29 20:46] LABS: GLUCOMETER DEV NAME(LOC) 6S.1B; GLUCOSE,POINT OF CARE 129 MG/DL (70-110)
[2022-01-30 04:20] VITALS: BP 138/83
[2022-01-30] MEDS: OxyCODONE HCL/ACETAMINOPHEN 5-325 MG TABLET PO PRN (04:20)
[2022-01-30] MEDS: NAFCILLIN SODIUM 2 GM in DEXTROSE 5%-WATER 100 ML IV SCH ×6 (04:20→23:43)
[2022-01-30] MEDS: INSULIN LISPRO 100 UNITS/ML SQ PRN ×4 (06:00→20:09)
[2022-01-30 06:17] LABS: GLUCOMETER DEV NAME(LOC) 6N.1; GLUCOSE,POINT OF CARE 148 MG/DL (70-110)
[2022-01-30 08:00] VITALS: BP 135/86
[2022-01-30] MEDS: LOSARTAN POTASSIUM 25 MG TABLET PO SCH (08:27)
[2022-01-30] MEDS: CHOLECALCIFEROL (VIT D3) 5,000 [125 MCG] UNITS CAPSULE PO SCH (08:27)
[2022-01-30] MEDS: FAMOTIDINE 20 MG TABLET PO SCH (08:27)
[2022-01-30] MEDS: HEPARIN SODIUM,PORCINE 5,000 UNITS/ML VIAL SQ SCH ×3 (08:28→23:43)
[2022-01-30] MEDS: MULTIVITAMINS, THERAPEUTIC TABLET PO SCH (08:28)
[2022-01-30 12:41] LABS: GLUCOMETER DEV NAME(LOC) 6S.1B; GLUCOSE,POINT OF CARE 142 MG/DL (70-110)
[2022-01-30 16:00] VITALS: BP 141/99
[2022-01-30 17:41] LABS: GLUCOMETER DEV NAME(LOC) 6S.1B; GLUCOSE,POINT OF CARE 142 MG/DL (70-110)
[2022-01-30 19:49] VITALS: BP 150/96
[2022-01-30] MEDS: TraZODone HCL 50 MG TABLET PO SCH (20:02)
[2022-01-31] MEDS: NAFCILLIN SODIUM 2 GM in DEXTROSE 5%-WATER 100 ML IV SCH ×6 (03:46→23:48)
[2022-01-31 04:51] VITALS: BP 134/91
[2022-01-31 05:11] LABS: GLUCOMETER DEV NAME(LOC) 6S.1B; GLUCOSE,POINT OF CARE 156 MG/DL (70-110)
[2022-01-31 07:55] LABS: GLUCOMETER DEV NAME(LOC) 6N.1; GLUCOSE,POINT OF CARE 114 MG/DL (70-110)
[2022-01-31] MEDS: MULTIVITAMINS, THERAPEUTIC TABLET PO SCH (08:27)
[2022-01-31] MEDS: FAMOTIDINE 20 MG TABLET PO SCH (08:27)
[2022-01-31] MEDS: LOSARTAN POTASSIUM 25 MG TABLET PO SCH (08:27)
[2022-01-31] MEDS: HEPARIN SODIUM,PORCINE 5,000 UNITS/ML VIAL SQ SCH ×3 (08:28→23:44)
[2022-01-31] MEDS: CHOLECALCIFEROL (VIT D3) 5,000 [125 MCG] UNITS CAPSULE PO SCH (08:28)
[2022-01-31 09:00] VITALS: BP 144/92
[2022-01-31 12:11] LABS: GLUCOMETER DEV NAME(LOC) 6N.2; GLUCOSE,POINT OF CARE 142 MG/DL (70-110)
[2022-01-31] MEDS: INSULIN LISPRO 100 UNITS/ML SQ PRN ×3 (12:21→22:10)
[2022-01-31 16:34] VITALS: BP 145/98
[2022-01-31 17:27] LABS: GLUCOMETER DEV NAME(LOC) 6N.2; GLUCOSE,POINT OF CARE 180 MG/DL (70-110)
[2022-01-31] MEDS: TraZODone HCL 50 MG TABLET PO SCH (20:03)
[2022-01-31 20:28] VITALS: BP 137/87
[2022-01-31 23:11] LABS: GLUCOMETER DEV NAME(LOC) 6S.1B; GLUCOSE,POINT OF CARE 170 MG/DL (70-110)
[2022-02-01] MEDS: NAFCILLIN SODIUM 2 GM in DEXTROSE 5%-WATER 100 ML IV SCH ×5 (03:48→20:17)
[2022-02-01] MEDS: OxyCODONE HCL/ACETAMINOPHEN 5-325 MG TABLET PO PRN ×4 (03:53→21:42)
[2022-02-01 05:16] VITALS: BP 149/95
[2022-02-01 06:36] LABS: GLUCOMETER DEV NAME(LOC) 6S.1B; GLUCOSE,POINT OF CARE 132 MG/DL (70-110)
[2022-02-01] MEDS: CHOLECALCIFEROL (VIT D3) 5,000 [125 MCG] UNITS CAPSULE PO SCH (08:07)
[2022-02-01] MEDS: MULTIVITAMINS, THERAPEUTIC TABLET PO SCH (08:08)
[2022-02-01] MEDS: FAMOTIDINE 20 MG TABLET PO SCH (08:08)
[2022-02-01] MEDS: HEPARIN SODIUM,PORCINE 5,000 UNITS/ML VIAL SQ SCH ×2 (08:08→16:27)
[2022-02-01] MEDS: LOSARTAN POTASSIUM 25 MG TABLET PO SCH (08:08)
[2022-02-01 08:39] VITALS: BP 139/89
[2022-02-01] MEDS: INSULIN LISPRO 100 UNITS/ML SQ PRN (12:15)
[2022-02-01 15:15] VITALS: BP 142/94
[2022-02-01 17:06] LABS: GLUCOMETER DEV NAME(LOC) 6S.1B; GLUCOSE,POINT OF CARE 149 MG/DL (70-110)
[2022-02-01 18:51] LABS: GLUCOMETER DEV NAME(LOC) 6N.2; GLUCOSE,POINT OF CARE 123 MG/DL (70-110)
[2022-02-01 19:51] VITALS: BP 139/93
[2022-02-01] MEDS: TraZODone HCL 50 MG TABLET PO SCH (20:16)
[2022-02-01 22:36] LABS: GLUCOMETER DEV NAME(LOC) 6N.2; GLUCOSE,POINT OF CARE 130 MG/DL (70-110)
[2022-02-02] MEDS: NAFCILLIN SODIUM 2 GM in DEXTROSE 5%-WATER 100 ML IV SCH ×7 (00:04→23:45)
[2022-02-02] MEDS: HEPARIN SODIUM,PORCINE 5,000 UNITS/ML VIAL SQ SCH ×4 (00:05→23:45)
[2022-02-02 05:12] VITALS: BP 121/75
[2022-02-02 05:49] LABS: BASOPHILS % (AUTO) 0.9 % (0.0-2.0); EOSINOPHILS % (AUTO) 8.8 % (1.0-6.0); HEMATOCRIT 24.9 % (41-53); HEMOGLOBIN 8.7 g/dL (13.5-17.5); LYMPHOCYTES # (AUTO) 1.7 K/uL (1.0-4.8); LYMPHOCYTES % (AUTO) 34.7 % (22.0-44.0); MEAN CORPUSCULAR HEMOGLOBIN 32.9 pg (26.0-34.0); MEAN CORPUSCULAR HGB CONC 35.1 G/dL (31.0-37.0); MEAN CORPUSCULAR VOLUME 94 fL (80-100); MONOCYTES # (AUTO) 0.3 K/uL (0.1-1.0); MONOCYTES % (AUTO) 6.8 % (2.0-9.0); NEUTROPHILS # (AUTO) 2.4 K/uL (1.8-7.7); NEUTROPHILS % (AUTO) 48.8 % (40.0-70.0); PLATELET COUNT (AUTO) 157 K/uL (150-450); RED BLOOD CELL COUNT(AUTO) 2.66 MIL/uL (4.50-5.90); RED CELL DISTRIBUTION WIDTH 18.7 % (11.5-14.5)
[2022-02-02 06:52] LABS: ALANINE AMINOTRANSFERASE 15 U/L (12-78); ALBUMIN 1.9 g/dL (3.4-5.0); ALKALINE PHOSPHATASE 73 U/L (46-116); ANION GAP 3 mmol/L (8-16); ASPARTATE AMINOTRANSFERASE 16 U/L (15-37); BILIRUBIN,TOTAL 1.1 mg/dL (0.1-1.0); C-REACTIVE PROTEIN QUANT 1.32 mg/dL (0.00-0.30); CALCIUM, TOTAL 9.2 mg/dL (8.8-10.5); CARBON DIOXIDE 30 mmol/L (22-29); CHLORIDE 106 mmol/L (98-107); CREATININE 0.87 mg/dL (0.60-1.30); GLOMERULAR FILTR. RATE CALC > 60 mL/min (>60); GLUCOSE,RANDOM 138 mg/dL (70-110); POTASSIUM 4.4 mmol/L (3.5-5.1); SODIUM SERUM 139 mmol/L (136-145); TOTAL PROTEIN, SERUM 6.6 g/dL (6.4-8.2); UREA NITROGEN, BLOOD 24 mg/dL (7-18)
[2022-02-02 07:02] LABS: GLUCOMETER DEV NAME(LOC) 6N.1; GLUCOSE,POINT OF CARE 114 MG/DL (70-110)
[2022-02-02 07:54] VITALS: BP 138/90
[2022-02-02] MEDS: FAMOTIDINE 20 MG TABLET PO SCH (08:30)
[2022-02-02] MEDS: LOSARTAN POTASSIUM 25 MG TABLET PO SCH (08:31)
[2022-02-02] MEDS: CHOLECALCIFEROL (VIT D3) 5,000 [125 MCG] UNITS CAPSULE PO SCH (08:31)
[2022-02-02] MEDS: MULTIVITAMINS, THERAPEUTIC TABLET PO SCH (08:31)
[2022-02-02] MEDS: OxyCODONE HCL/ACETAMINOPHEN 5-325 MG TABLET PO PRN ×2 (08:36→10:27)
[2022-02-02 11:51] VITALS: BP 132/86
[2022-02-02 15:40] VITALS: BP 148/93
[2022-02-02] MEDS: INSULIN LISPRO 100 UNITS/ML SQ PRN ×2 (17:01→21:06)
[2022-02-02 19:30] VITALS: BP 141/88
[2022-02-02] MEDS: TraZODone HCL 50 MG TABLET PO SCH (20:54)
[2022-02-02] MEDS: ZOLPIDEM TARTRATE 10 MG TABLET PO PRN (20:54)
[2022-02-02 21:06] LABS: GLUCOMETER DEV NAME(LOC) 6N.2; GLUCOSE,POINT OF CARE 121 MG/DL (70-110)
[2022-02-03] MEDS: NAFCILLIN SODIUM 2 GM in DEXTROSE 5%-WATER 100 ML IV SCH ×6 (03:17→23:55)
[2022-02-03 05:25] VITALS: BP 127/81
[2022-02-03 05:41] LABS: GLUCOMETER DEV NAME(LOC) 6N.1; GLUCOSE,POINT OF CARE 143 MG/DL (70-110)
[2022-02-03 05:42] LABS: GLUCOMETER DEV NAME(LOC) 6N.2; GLUCOSE,POINT OF CARE 150 MG/DL (70-110)
[2022-02-03 06:46] LABS: GLUCOMETER DEV NAME(LOC) 6N.2; GLUCOSE,POINT OF CARE 111 MG/DL (70-110)
[2022-02-03 07:37] VITALS: BP 144/84
[2022-02-03] MEDS ORDERED: SODIUM CHLORIDE 0.9% 500 ML IV ONE (08:08)
[2022-02-03] MEDS: HEPARIN SODIUM,PORCINE 5,000 UNITS/ML VIAL SQ SCH ×3 (08:09→23:58)
[2022-02-03] MEDS: MULTIVITAMINS, THERAPEUTIC TABLET PO SCH (08:12)
[2022-02-03] MEDS: LOSARTAN POTASSIUM 25 MG TABLET PO SCH (08:13)
[2022-02-03] MEDS: FAMOTIDINE 20 MG TABLET PO SCH (08:13)
[2022-02-03] MEDS: CHOLECALCIFEROL (VIT D3) 5,000 [125 MCG] UNITS CAPSULE PO SCH (08:13)
[2022-02-03] MEDS: OxyCODONE HCL/ACETAMINOPHEN 5-325 MG TABLET PO PRN (09:49)
[2022-02-03] MEDS: INSULIN LISPRO 100 UNITS/ML SQ PRN ×2 (11:31→17:27)
[2022-02-03 12:11] LABS: GLUCOMETER DEV NAME(LOC) 6S.1B; GLUCOSE,POINT OF CARE 148 MG/DL (70-110)
[2022-02-03 16:04] VITALS: BP 157/98
[2022-02-03 18:56] LABS: GLUCOMETER DEV NAME(LOC) 6N.2; GLUCOSE,POINT OF CARE 140 MG/DL (70-110)
[2022-02-03] MEDS: ZOLPIDEM TARTRATE 10 MG TABLET PO PRN (20:10)
[2022-02-03] MEDS: TraZODone HCL 50 MG TABLET PO SCH (20:10)
[2022-02-03 20:15] VITALS: BP 146/90
[2022-02-03 20:21] LABS: GLUCOMETER DEV NAME(LOC) 6S.1B; GLUCOSE,POINT OF CARE 112 MG/DL (70-110)
[2022-02-04] MEDS: NAFCILLIN SODIUM 2 GM in DEXTROSE 5%-WATER 100 ML IV SCH ×5 (03:33→20:29)
[2022-02-04 05:32] VITALS: BP 127/80
[2022-02-04 07:29] VITALS: BP 141/91
[2022-02-04] MEDS: CHOLECALCIFEROL (VIT D3) 5,000 [125 MCG] UNITS CAPSULE PO SCH (07:57)
[2022-02-04] MEDS: MULTIVITAMINS, THERAPEUTIC TABLET PO SCH (07:57)
[2022-02-04] MEDS: LOSARTAN POTASSIUM 25 MG TABLET PO SCH (07:57)
[2022-02-04] MEDS: FAMOTIDINE 20 MG TABLET PO SCH (07:57)
[2022-02-04] MEDS: HEPARIN SODIUM,PORCINE 5,000 UNITS/ML VIAL SQ SCH ×2 (07:58→16:32)
[2022-02-04 15:44] VITALS: BP 131/89
[2022-02-04] MEDS: INSULIN LISPRO 100 UNITS/ML SQ PRN (17:43)
[2022-02-04 18:33] LABS: GLUCOMETER DEV NAME(LOC) 6N.1; GLUCOSE,POINT OF CARE 155 MG/DL (70-110)
[2022-02-04 19:45] VITALS: BP 142/91
[2022-02-04 20:01] LABS: GLUCOMETER DEV NAME(LOC) 6N.2; GLUCOSE,POINT OF CARE 139 MG/DL (70-110)
[2022-02-04 20:01] LABS: GLUCOMETER DEV NAME(LOC) 6N.2; GLUCOSE,POINT OF CARE 125 MG/DL (70-110)
[2022-02-04] MEDS: TraZODone HCL 50 MG TABLET PO SCH (20:29)
[2022-02-05] MEDS: HEPARIN SODIUM,PORCINE 5,000 UNITS/ML VIAL SQ SCH ×4 (00:39→23:50)
[2022-02-05] MEDS: NAFCILLIN SODIUM 2 GM in DEXTROSE 5%-WATER 100 ML IV SCH ×6 (00:43→20:12)
[2022-02-05 04:40] VITALS: BP 135/80
[2022-02-05 06:16] LABS: GLUCOMETER DEV NAME(LOC) 6S.1B; GLUCOSE,POINT OF CARE 106 MG/DL (70-110)
[2022-02-05 06:16] LABS: GLUCOMETER DEV NAME(LOC) 6S.1B; GLUCOSE,POINT OF CARE 122 MG/DL (70-110)
[2022-02-05] MEDS ORDERED: SODIUM CHLORIDE 0.9% 500 ML IV ONE (07:54)
[2022-02-05 08:00] VITALS: BP 142/90
[2022-02-05] MEDS: FAMOTIDINE 20 MG TABLET PO SCH (08:00)
[2022-02-05] MEDS: LOSARTAN POTASSIUM 25 MG TABLET PO SCH (08:01)
[2022-02-05] MEDS: CHOLECALCIFEROL (VIT D3) 5,000 [125 MCG] UNITS CAPSULE PO SCH (08:01)
[2022-02-05] MEDS: MULTIVITAMINS, THERAPEUTIC TABLET PO SCH (08:01)
[2022-02-05 11:47] LABS: GLUCOMETER DEV NAME(LOC) 6N.1; GLUCOSE,POINT OF CARE 117 MG/DL (70-110)
[2022-02-05 16:08] VITALS: BP 140/81
[2022-02-05 17:16] LABS: GLUCOMETER DEV NAME(LOC) 6S.1B; GLUCOSE,POINT OF CARE 120 MG/DL (70-110)
[2022-02-05 19:45] VITALS: BP 133/85
[2022-02-05] MEDS: TraZODone HCL 50 MG TABLET PO SCH (20:12)
[2022-02-05] MEDS: INSULIN LISPRO 100 UNITS/ML SQ PRN (20:52)
[2022-02-05 22:26] LABS: GLUCOMETER DEV NAME(LOC) 6N.1; GLUCOSE,POINT OF CARE 188 MG/DL (70-110)
[2022-02-06] MEDS: NAFCILLIN SODIUM 2 GM in DEXTROSE 5%-WATER 100 ML IV SCH ×4 (00:09→12:32)
[2022-02-06 04:45] VITALS: BP 129/75
[2022-02-06 06:41] LABS: GLUCOMETER DEV NAME(LOC) 6N.1; GLUCOSE,POINT OF CARE 120 MG/DL (70-110)
[2022-02-06 08:03] VITALS: BP 138/87
[2022-02-06] MEDS: FAMOTIDINE 20 MG TABLET PO SCH (09:33)
[2022-02-06] MEDS: LOSARTAN POTASSIUM 25 MG TABLET PO SCH (09:33)
[2022-02-06] MEDS: MULTIVITAMINS, THERAPEUTIC TABLET PO SCH (09:33)
[2022-02-06] MEDS: HEPARIN SODIUM,PORCINE 5,000 UNITS/ML VIAL SQ SCH (09:33)
[2022-02-06] MEDS: CHOLECALCIFEROL (VIT D3) 5,000 [125 MCG] UNITS CAPSULE PO SCH (09:33)
[2022-02-06] MEDS: INSULIN LISPRO 100 UNITS/ML SQ PRN (11:54)
[2022-02-06 12:41] LABS: GLUCOMETER DEV NAME(LOC) 6N.2; GLUCOSE,POINT OF CARE 150 MG/DL (70-110)
== END 2022-02-06 15:45 | disposition home or self-care (01) | DRG 710 ==
LOC: EMS 06:48 → 6N 16:36 → 4E 12-08 15:52 → ICU 12-10 16:45 → 5S 12-16 17:35 → 6N 12-24 18:40 → 6S 12-28 10:13
PROVIDERS: ADMIT Internal Medicine; ATTEND Internal Medicine
PROC: 0JBJ0ZZ Excision of Right Hand Subcutaneous Tissue and Fascia, Open Approach (ICD-10-PCS; principal; 2021-12-03 07:15)
PROC: 0RG20A0 Fusion of 2 or more Cervical Vertebral Joints with Interbody Fusion Device, Anterior Approach, Anterior Column, Open Approach (ICD-10-PCS; 2021-12-10)
PROC: 0RG2071 Fusion of 2 or more Cervical Vertebral Joints with Autologous Tissue Substitute, Posterior Approach, Posterior Column, Open Approach (ICD-10-PCS; 2021-12-10)
PROC: 4A11X4G Monitoring of Peripheral Nervous Electrical Activity, Intraoperative, External Approach (ICD-10-PCS; 2021-12-10)
PROC: 30233N1 Transfusion of Nonautologous Red Blood Cells into Peripheral Vein, Percutaneous Approach (ICD-10-PCS; 2021-12-11)
PROC: 5A1945Z Respiratory Ventilation, 24-96 Consecutive Hours (ICD-10-PCS; 2021-12-12)
PROC: 0BH17EZ Insertion of Endotracheal Airway into Trachea, Via Natural or Artificial Opening (ICD-10-PCS; 2021-12-12)
PROC: 02HV33Z Insertion of Infusion Device into Superior Vena Cava, Percutaneous Approach (ICD-10-PCS; 2021-12-14)
DX: A41.01 Sepsis due to Methicillin susceptible Staphylococcus aureus (principal); J96.00 Acute respiratory failure, unspecified whether with hypoxia or hypercapnia; G06.1 Intraspinal abscess and granuloma; N17.9 Acute kidney failure, unspecified; I38 Endocarditis, valve unspecified; M48.54XA Collapsed vertebra, not elsewhere classified, thoracic region, initial encounter for fracture; D63.8 Anemia in other chronic diseases classified elsewhere; M46.22 Osteomyelitis of vertebra, cervical region; E11.69 Type 2 diabetes mellitus with other specified complication; L02.511 Cutaneous abscess of right hand; L03.113 Cellulitis of right upper limb; I10 Essential (primary) hypertension; M46.42 Discitis, unspecified, cervical region; R32 Unspecified urinary incontinence; E78.5 Hyperlipidemia, unspecified; E87.6 Hypokalemia; K59.00 Constipation, unspecified; E78.00 Pure hypercholesterolemia, unspecified; G89.29 Other chronic pain; E11.40 Type 2 diabetes mellitus with diabetic neuropathy, unspecified; Z83.3 Family history of diabetes mellitus; Z98.1 Arthrodesis status; Z99.11 Dependence on respirator [ventilator] status; Z79.82 Long term (current) use of aspirin; Z20.822 Contact with and (suspected) exposure to COVID-19
CPT/HCPCS: 36569; 71045; 72125; 72148; 72156; 72157; 72158; 73220; 73718; 76937; 80048; 80053; 80202; 82040; 82805; 82962; 83036; 83735; 84100; 84132; 84145; 84550; 85025; 85610; 85651; 85730; 86140; 86850; 86900; 86901; 86923; 87040; 87070; 87077; 87081; 87205; 88305; 88311; 92610; 93005; 93306; 93312; 94002; 94003; 97110; 97116; 97162; 97166; 97167; 97530; 97535; 99285; G0238; G0378; J0131; J0330; J0690; J0696; J1100; J1170; J1200; J1644; J2250; J2270; J2370; J2405; J2704; J3010; J3370; J3480; J3490; J7030; J7040; J7050; J7060; J7120; P9016; P9041; P9047; Q9967; 36415-L1; 36415-TC; C1716; Z7610